=== PATIENT | male | born 1980 | race Hispanic/Latino ===

== ENCOUNTER 2021-10-06 17:31 | Inpatient (IN) | payer OTHER ==
[2021-10-06] MEDS ORDERED: ONDANSETRON 4 MG/2 ML INJ IV ONE (17:56)
--- NOTE | 2021-10-06 18:30 | XRay Report ---
. XR chest 1V ap INDICATION / CLINICAL INFORMATION: Productive cough generalized malaise. COMPARISON: None available. FINDINGS: SUPPORT DEVICES: None. HEART /PULMONARY VASCULATURE: No significant abnormality. LUNGS / PLEURA: No significant pulmonary or pleural abnormality. No pneumothorax. IMPRESSION: 1. No acute findings. Signer Name: Jamie Cox MD Signed: 10/06/2021 6:26 PM Workstation Name: [id number]
[2021-10-06 18:45] LABS: Mean Corpuscular HGB Conc 29 % (32-34); Mean Corpuscular Volume 102 fl (84-94); Platelet Count 429 K/mm3 (140-440); Red Blood Count 6.57 M/mm3 (3.65-5.03); Red Cell Distribution Width 15.6 % (13.2-15.2)
[2021-10-06] MEDS ORDERED: SODIUM CHLORIDE 0.9% 1000 ML 1,000 ML IV ONE (18:45)
[2021-10-06 18:47] LABS: Hemoglobin 19.3 gm/dl (11.8-15.2)
[2021-10-06 18:50] LABS: Hematocrit 67.1 % (35.5-45.6)
[2021-10-06 19:09] LABS: Albumin 4.7 g/dL (3.9-5); Calcium 11.2 mg/dL (8.4-10.2)
[2021-10-06] MEDS ORDERED: CEFEPIME/NS 2 GM/100 ML 2 GM/100 ML BAG IV ONE (19:12)
[2021-10-06] MEDS ORDERED: SODIUM CHLORIDE 0.9% 1000 ML IV SOLN IV ONE (19:12)
[2021-10-06 19:33] LABS: Bilirubin,Urine NEG (Negative); Blood,Urine NEG (Negative); Color,Urine Straw (Yellow); Hyaline Casts,Urine 1 /LPF; Mucus,Urine FEW /HPF; Protein,Urine <15 mg/dL mg/dL (Negative); RBC,Urine < 1.0 /HPF (0.0-6.0); Urobilinogen,Urine < 2.0 mg/dL (<2.0)
[2021-10-06 19:41] LABS: Amphetamine Screen,Urine Negative; Benzodiazepines Screen,Urine Negative; Cannabinoid Screen,Urine Negative; Cocaine Screen,Urine Negative; Methadone Screen,Urine Negative; Opiate Screen,Urine Negative
[2021-10-06] MEDS ORDERED: INSULIN REGULAR, HUMAN 100 UNITS/1 ML IV ONE (20:10)
--- NOTE | 2021-10-06 21:40 | Cat Scan Report ---
CT CHEST, ABDOMEN, AND PELVIS WITHOUT CONTRAST INDICATION / CLINICAL INFORMATION: sepsis vomiting. TECHNIQUE: Axial CT images were obtained through the chest, abdomen, and pelvis without contrast. All CT scans at this location are performed using CT dose reduction for ALARA by means of automated expo sure control. COMPARISON: None available. FINDINGS: HEART: No significant abnormality. CORONARY ARTERY CALCIFICATION: None. THORACIC AORTA: No significant abnormality. MEDIASTINUM / MORRIS: No significant abnormality. PLEURA: No pleural effusion. No pneumothorax. LUNGS: Patchy lower lobe and peripheral predominant groundglass opacities. ADDITIONAL CHEST FINDINGS: Esophagus is mildly patulous and contains ingested material.. LIVER: No significant abnormality. GALLBLADDER: Not seen, likely surgically absent. BILE DUCTS: No significant abnormality. PANCREAS: Postsurgical changes from partial resection of the pancreas SPLEEN: Surgically absent. ADRENALS: No significant abnormality. RIGHT KIDNEY / URETER: Hypodensity at lower pole right kidney likely represents a cyst. LEFT KIDNEY / URETER: No significant abnormality. STOMACH and SMALL BOWEL: No significant abnormality. COLON: Moderate colonic stool burden. No acute inflammation. APPENDIX: No significant abnormality. PERITONEUM: No free fluid. No free air. No fluid collection. LYMPH NODES: No significant adenopathy. AORTA / ARTERIES: No significant abnormality. IVC / VEINS: No significant abnormality. URINARY BLADDER: No significant abnormality. REPRODUCTIVE ORGANS: No significant abnormality. ADDITIONAL FINDINGS: None. SKELETAL SYSTEM: No aggressive osseous lesion. Scoliosis of the thoracic and lumbar spine. Small alysa gn-appearing sclerotic lesion in the left femoral head. IMPRESSION: 1. Patchy groundglass opacities in the lung bases likely represent infectious/inflammatory etiology. 2. Postsurgical changes in the abdomen without acute abnormality identified. 3. Moderate colonic stool burden which can be seen with constipation in the proper clinical setting. Signer Name: Josh Servin MD Signed: 10/06/2021 9:35 PM Workstation Name: [id number]
[2021-10-06] MEDS ORDERED: VANCOMYCIN/NS 1 GM/250 ML 1 GM/250 ML BAG IV ONE (22:40)
[2021-10-06 22:44] LABS: Basophils % (Manual) 0 % (0.0-1.8); Eosinophils % (Manual) 0 % (0.0-4.3); Macrocytosis 2+; Myelocytes # (Manual) 0.9 K/mm3; Total Cells Counted 100
[2021-10-06 22:46] LABS: Platelet Estimate Consistent w Auto
[2021-10-06] MEDS ORDERED: MORPHINE 2 MG/1 ML INJ IV PRN (22:56)
[2021-10-06] MEDS ORDERED: DEXTROSE 50% IN WATER (25GM) 50 ML SYRINGE IV PRN (22:56)
[2021-10-06] MEDS ORDERED: ACETAMINOPHEN 325 MG TAB PO PRN (22:56)
[2021-10-06] MEDS ORDERED: MORPHINE 4 MG/1 ML INJ IV PRN (22:56)
[2021-10-06] MEDS ORDERED: ONDANSETRON 4 MG/2 ML INJ IV PRN (22:56)
[2021-10-06] MEDS ORDERED: D5W/0.45% NACL/KCL 20 MEQ 20 MEQ/1,000 ML BAG IV SCH (23:00)
[2021-10-06] MEDS ORDERED: SODIUM CHLORIDE 0.9% 1000 ML 1,000 ML IV SCH (23:00)
--- NOTE | 2021-10-06 23:10 | History and Physical Report ---
History of Present Illness Date of examination: 10/06/21 Date of admission: 10/06/2021 Chief complaint: Nausea and Vomiting Generalized weakness History of present illness: 41-year-old male with known history of necrotizing pancreatitis, splenectomy, pancreatectomy presenting to the emergency room today with nausea and vomiting, cough and changes in mental status with generalized weakness. Most of the history was gotten from the ER staff as patient is altered. Family members also not available. Blood glucose was 1094. Work-up in the emergency room today, lab reveals leukocytosis of 22.6, hemoglobin of 19.3 and hematocrit of 67.1. Blood glucose was 1094, potassium of 5.6 CT of the chest reveals patchy groundglass opacities in lung bases likely representing infectious/inflammatory etiology. Patient has been started on empiric IV antibiotics. He is also placed on insulin drip and IV fluid for DKA. Past History Past Medical History: diabetes, other (Unknown) Past Surgical History: Other (Unknown) Social history: other (Unknown) Family history: other (Unknown) Medications and Allergies Allergies Allergy/AdvReac Type Severity Reaction Status Date / Time Sulfa (Sulfonamide AdvReac Unknown Verified 10/06/21 17:45 Antibiotics) Home Medications Medication Instructions Recorded Confirmed Last Taken Type No Known Home Medications [No 10/06/21 10/06/21 Unknown History Reported Home Medications] Active Meds: Active Medications Acetaminophen (Acetaminophen 325 Mg Tab) 650 mg PO Q6H PRN PRN Reason: Pain MILD(1-3)/Fever >100.5/STEINER Dextrose (Dextrose 50% In Water (25gm) 50 Ml Syringe) 0 ml IV Q30MIN PRN; Prot ocol PRN Reason: Hypoglycemia Insulin Human Regular 100 (units/ Sodium Chloride) 100 mls @ 6 mls/hr IV TITR CARMEN; Protocol Vancomycin HCl (Vancomycin/Ns 1 Gm/250 Ml) 1 gm in 250 mls @ 167.007 mls/hr IV ONCE ONE; Protocol Stop: 10/07/21 00:09 Sodium Chloride (Nacl 0.9% 1000 Ml) 1,000 mls @ 150 mls/hr IV DIRECT CARMEN Potassium Chloride/Dextrose/Sod Cl (D5w/0.45% Nacl/Kcl 20 Meq) 20 meq in 1,000 mls @ 125 mls/hr IV DIRECT CARMEN Potassium Chloride/Dextrose/Sod Cl (D5w/0.45% Nacl/Kcl 20 Meq) 20 meq in 1,000 mls @ 125 mls/hr IV DIRECT CARMEN Morphine Sulfate (Morphine 2 Mg/1 Ml Inj) 2 mg IV Q4H PRN PRN Reason: Pain, Moderate (4-6) Morphine Sulfate (Morphine 4 Mg/1 Ml Inj) 4 mg IV Q4H PRN PRN Reason: Pain , Severe (7-10) Ondansetron HCl (Ondansetron 4 Mg/2 Ml Inj) 4 mg IV Q8H PRN PRN Reason: Nausea And Vomiting Sodium Chloride (Sodium Chloride 0.9% 10 Ml Flush Syringe) 10 ml IV BID CARMEN Sodium Chloride (Sodium Chloride 0.9% 10 Ml Flush Syringe) 10 ml IV PRN PRN PRN Reason: LINE FLUSH Review of Systems ROS unobtainable: due to mental status Exam - Constitutional Vitals: Temp Pulse Resp BP Pulse Ox 97.4 F L 117 H 17 122/85 95 10/06/21 18:48 10/06/21 18:48 10/06/21 18:48 10/06/21 18:48 10/06/21 18:50 General appearance: Present: cachectic - EENT Eyes: Present: PERRL, EOM intact. Absent: scleral icterus ENT: hearing intact, clear oral mucosa, dentition normal, other (Dried blood stains in oral orifice) - Neck Neck: Present: supple, normal ROM - Respiratory Respiratory effort: normal Respiratory: bilateral: CTA - Cardiovascular Rhythm: regular Heart Sounds: Present: S1 & S2. Absent: gallop, systolic murmur, diastolic murmur, rub, click - Extremities Extremities: no ischemia, pulses intact, pulses symmetrical, No edema, normal temperature, normal color, Full ROM Peripheral Pulses: within normal limits - Abdominal General gastrointestinal: Present: soft, non-tender, non-distended, normal bowel sounds. Absent: mass - Integumentary Integumentary: Present: clear, warm, dry. Absent: rash - Musculoskeletal Musculoskeletal: strength equal bilaterally - Psychiatric Psychiatric: cooperative - Neurologic Neurologic: CNII-XII intact, moves all extremities, other (Obtunded) Results - Labs CBC & Chem 7: 10/07/21 05:05 10/07/21 05:05 Labs: Abnormal lab results 10/06/21 10/06/21 10/06/21 Range/Units 18:17 18:17 18:17 WBC 22.6 H (4.5-11.0) K/mm3 RBC 6.57 H (3.65-5.03) M/mm3 Hgb 19.3 H (11.8-15.2) gm/dl Hct 67.1 H* (35.5-45.6) % MCV 102 H (84-94) fl MCHC 29 L (32-34) % RDW 15.6 H (13.2-15.2) % Seg Neuts % (Manual) 78.0 H (40.0-70.0) % Lymphocytes % (Manual) 1.0 L (13.4-35.0) % Seg Neutrophils # Man 17.6 H (1.8-7.7) K/mm3 Lymphocytes # (Manual) 0.2 L (1.2-5.4) K/mm3 Monocytes # (Manual) 1.4 H (0.0-0.8) K/mm3 VBG pH (7.320-7.420) Sodium 136 L (137-145) mmol/L Potassium 5.6 H (3.6-5.0) mmol/L Chloride 78.5 L (98-107) mmol/L Carbon Dioxide 11 L (22-30) mmol/L BUN 76 H (9-20) mg/dL Creatinine 2.3 H (0.8-1.3) mg/dL Glucose 1094 H* (75-100) mg/dL Lactic Acid 5.10 H* (0.7-2.0) mmol/L Calcium 11.2 H (8.4-10.2) mg/dL Phosphorus (2.5-4.5) mg/dL Magnesium (1.7-2.3) mg/dL Alkaline Phosphatase 132 H (35-129) units/L Total Protein 8.9 H (6.3-8.2) g/dL Lipase 76 H (13-60) units/L 10/06/21 10/06/21 10/06/21 Range/Units 20:40 20:40 21:51 WBC (4.5-11.0) K/mm3 RBC (3.65-5.03) M/mm3 Hgb (11.8-15.2) gm/dl Hct (35.5-45.6) % MCV (84-94) fl MCHC (32-34) % RDW (13.2-15.2) % Seg Neuts % (Manual) (40.0-70.0) % Lymphocytes % (Manual) (13.4-35.0) % Seg Neutrophils # Man (1.8-7.7) K/mm3 Lymphocytes # (Manual) (1.2-5.4) K/mm3 Monocytes # (Manual) (0.0-0.8) K/mm3 VBG pH 7.241 L (7.320-7.420) Sodium (137-145) mmol/L Potassium (3.6-5.0) mmol/L Chloride (98-107) mmol/L Carbon Dioxide (22-30) mmol/L BUN (9-20) mg/dL Creatinine (0.8-1.3) mg/dL Glucose (75-100) mg/dL Lactic Acid 4.50 H* (0.7-2.0) mmol/L Calcium (8.4-10.2) mg/dL Phosphorus 7.70 H (2.5-4.5) mg/dL Magnesium 4.00 H (1.7-2.3) mg/dL Alkaline Phosphatase (35-129) units/L Total Protein (6.3-8.2) g/dL Lipase (13-60) units/L Assessment and Plan - Patient Problems (1) Diabetic ketoacidosis Current Visit: Yes Status: Acute Plan to address problem: Patient started on IV fluid and insulin drip. We will monitor Accu-Cheks accordingly. (2) Acute metabolic encephalopathy Current Visit: Yes Status: Acute Plan to address problem: Possibly secondary to underlying DKA and pneumonia. We will monitor mental status. (3) Community acquired pneumonia Current Visit: Yes Status: Acute Plan to address problem: Patient placed on empiric IV antibiotics. Will await culture results. (4) Sepsis Current Visit: Yes Status: Acute Plan to address problem: Present on admission. Secondary to the underlying infection and DKA. (5) Suspected COVID-19 virus infection Current Visit: Yes Status: Acute Plan to address problem: We await COVID-19 testing. (6) DVT prophylaxis Current Visit: Yes Status: Acute Plan to address problem: Patient placed on subcutaneous heparin. (7) Full code status Current Visit: Yes Status: Acute Plan to address problem: Patient is full code.
--- NOTE | 2021-10-06 23:18 | Emergency Department Report ---
ED General Adult HPI - General Chief complaint: Weakness Stated complaint: WEAKNESS,DEHYDRATION,DIZZY Time Seen by Provider: 10/06/21 17:57 Source: patient Mode of arrival: Wheelchair Limitations: No Limitations - History of Present Illness Initial comments: Chief complaint: Cough, weakness, confusion HPI: This is a 41-year-old male with history of necrotizing pancreatitis, splenectomy, pancreatectomy who presents with confusion, vomiting, weight loss, productive cough. History obtained from who is registered nurse phone #[phone] 1 week ago patient felt as if he had a sinus infection or pneumonia. His physician prescribed Z-Ashu and prednisone. He then developed nausea vomiting with poor appetite. realized that he was confused and incoherent for the past 2 to 3 days. No history of diabetes mellitus. Patient required pancreatectomy and splenectomy cholecystectomy after being diagnosed with a severe infection. Patient required several hospitalizations over 2-year period. -: Gradual, week(s) (1 week) Severity scale (0 -10): 0 Consistency: constant Improves with: none Worsens with: none Associated Symptoms: confusion, cough, loss of appetite, nausea/vomiting, other (8 pound weight loss) - Related Data Home Medications Medication Instructions Recorded Confirmed Last Taken No Known Home Medications [No 10/06/21 10/06/21 Unknown Reported Home Medications] Allergies Allergy/AdvReac Type Severity Reaction Status Date / Time Sulfa (Sulfonamide AdvReac Unknown Verified 10/06/21 17:45 Antibiotics) ED Review of Systems ROS: Stated complaint: WEAKNESS,DEHYDRATION,DIZZY Other details as noted in HPI Comment: Unobtainable due to pts medical conditions (Altered mental status, history obtained from ) ED Past Medical Hx - Past Medical History Previous Medical History?: Yes Additional medical history: Necrotizing pancreatitis - Surgical History Past Surgical History?: Yes Additional Surgical History: Pancreatectomy, splenectomy, cholecystectomy - Social History Smoking Status: Never Smoker Substance Use Type: None - Medications Home Medications: Home Medications Medication Instructions Recorded Confirmed Last Taken Type No Known Home Medications [No 10/06/21 10/06/21 Unknown History Reported Home Medications] ED Physical Exam - General Limitations: No Limitations General appearance: lethargic, postictal, other (Protecting airway, appears ill,) - Head Head exam: Present: atraumatic, normocephalic - Eye Eye exam: Present: normal appearance - ENT ENT exam: Present: mucous membranes dry, other (Dry mucous membranes no oropharyngeal lesions) - Neck Neck exam: Present: normal inspection, full ROM - Respiratory Respiratory exam: Present: rales, decreased breath sounds. Absent: respiratory distress - Cardiovascular Cardiovascular Exam: Present: normal rhythm, tachycardia, normal heart sounds. Absent: systolic murmur, diastolic murmur, rubs, gallop - GI/Abdominal GI/Abdominal exam: Present: soft, normal bowel sounds. Absent: distended, tenderness, guarding, rebound - Rectal Rectal exam: Present: deferred - Extremities Exam Extremities exam: Present: normal inspection - Neurological Exam Neurological exam: Present: alert, other (Oriented to name) - Psychiatric Psychiatric exam: Present: flat affect - Skin Skin exam: Present: warm, dry, intact, pallor. Absent: rash ED Course Vital Signs 10/06/21 10/06/21 10/06/21 17:43 18:41 18:48 Temperature 97.4 F L 97.4 F L 97.4 F L Pulse Rate 121 H 60 117 H Respiratory 18 16 17 Rate Blood Pressure 118/84 Blood Pressure 122/85 122/85 [Right] O2 Sat by Pulse 97 100 98 Oximetry 10/06/21 18:50 Temperature Pulse Rate Respiratory Rate Blood Pressure Blood Pressure [Right] O2 Sat by Pulse 95 Oximetry ED Medical Decision Making - Lab Data Result diagrams: 10/06/21 18:17 10/06/21 18:17 - EKG Data -: EKG Interpreted by Ri EKG shows normal: sinus rhythm Rate: tachycardia - EKG Data 10/06/21 23:19 EKG obtained 1954 EKG interpreted by nj Sinus tachycardia rate 105 bpm normal axis peak T waves prolonged QT interval no ST elevation - Radiology Data Radiology results: report reviewed Patient Name: TAMARA BETHEA Gender: Male Date of : 1980 Home Phone: Referring Provider: PAPI HARTMAN Organization: [facility] Accession Number: [id number] Requested Date: October 06, 2021 19:11 Report Status: Final Requested Procedure: 1 Procedure Description: CT chest wo con Modality: CT Findings Reporting MD: Josh Servin Dictation Time: October 06, 2021 20:35 Break Out Worker: Not available Curriculum Advisory Teacher Date: CT CHEST, ABDOMEN, AND PELVIS WITHOUT CONTRAST INDICATION / CLINICAL INFORMATION: sepsis vomiting. TECHNIQUE: Axial CT images were obtained through the chest, abdomen, and pelvis without contrast. All CT scans at this location are performed using CT dose reduction for ALARA by means of automated exposure control. COMPARISON: None available. FINDINGS: HEART: No significant abnormality. CORONARY ARTERY CALCIFICATION: None. THORACIC AORTA: No significant abnormality. MEDIASTINUM / MORRIS: No significant abnormality. PLEURA: No pleural effusion. No pneumothorax. LUNGS: Patchy lower lobe and peripheral predominant groundglass opacities. ADDITIONAL CHEST FINDINGS: Esophagus is mildly patulous and contains ingested material.. LIVER: No significant abnormality. GALLBLADDER: Not seen, likely surgically absent. BILE DUCTS: No significant abnormality. PANCREAS: Postsurgical changes from partial resection of the pancreas SPLEEN: Surgically absent. ADRENALS: No significant abnormality. RIGHT KIDNEY / URETER: Hypodensity at lower pole right kidney likely represents a cyst. LEFT KIDNEY / URETER: No significant abnormality. STOMACH and SMALL BOWEL: No significant abnormality. COLON: Moderate colonic stool burden. No acute inflammation. APPENDIX: No significant abnormality. PERITONEUM: No free fluid. No free air. No fluid collection. LYMPH NODES: No significant adenopathy. AORTA / ARTERIES: No significant abnormality. IVC / VEINS: No significant abnormality. URINARY BLADDER: No significant abnormality. REPRODUCTIVE ORGANS: No significant abnormality. ADDITIONAL FINDINGS: None. SKELETAL SYSTEM: No aggressive osseous lesion. Scoliosis of the thoracic and lumbar spine. Small benign-appearing sclerotic lesion in the left femoral head. [facility] [address], [address] [place] [address] P [phone] F [phone] [facility] - Report exported on Oct 06, 2021 22:18:54 -0600 - Page 2 of 2 IMPRESSION: 1. Patchy groundglass opacities in the lung bases likely represent infectious/inflammatory etiology. 2. Postsurgical changes in the abdomen without acute abnormality identified. 3. Moderate colonic stool burden which can be seen with constipation in the proper clinical setting. Signer Name: Josh Servin MD Signed: 10/06/2021 8:35 PM Workstation Name: [id number] - Medical Decision Making 1. Diabetic ketoacidosis: New diagnosis of diabetes mellitus. Treated with IV fluid therapy, IV insulin infusion, insulin bolus. 2. Community-acquired pneumonia/sepsis: Broad-spectrum antibiotics cefepime vancomycin initial emergency department as well as 30 mL/kg normal saline bolus 3. TICO: Vasomotor nephropathy due to sepsis poor perfusion hypovolemia, EKG with peaked T waves signs of hyperkalemia. Hyperkalemia will be addressed with insulin therapy. 4. Acute metabolic encephalopathy due to the above diagnoses including uremia, sepsis, metabolic acidosis Admitted to CCU I consulted trailer steerer and admitting hospitalist physician Critical Care Time: Yes Critical care time in (mins) excluding proc time.: 40 Critical care attestation.: If time is entered above; I have spent that time in minutes in the direct care of this critically ill patient, excluding procedure time. 40 minutes of critical care time excluding procedures were used in the care of the patient. I came immediately to the bedside upon patient's arrival to treatment room. I discussed treatment plan with the nursing team members. I rev iewed electronic record. I had extensive discussion with regarding plan of care. Patient required multiple interventions and reassessments. ED Disposition Clinical Impression: Diabetic ketoacidosis, Sepsis, Community acquired pneumonia, Suspected COVID-19 virus infection, Acute kidney injury, Acute metabolic encephalopathy Disposition: 09 ADMITTED INPATIENT Is pt being admited?: Yes Does the pt Need Aspirin: No Condition: Critical Instructions: Diabetic Ketoacidosis (ED), Bacterial Pneumonia (ED)
[2021-10-06] MEDS ORDERED: AZITHROMYCIN/NS 500 MG/250 ML 500 MG/250 ML BAG IV SCH (23:45)
[2021-10-06] MEDS ORDERED: cefTRIAXone/NS 2 GM/100 ML 2 GM/100 ML BAG IV SCH (23:45)
[2021-10-06] MEDS ORDERED: DEXTROSE 10% *Hypoglycemia IV PRN (23:47)
[2021-10-07] MEDS: INSULIN REGULAR, HUMAN 100 UNITS in SODIUM CHLORIDE 0.9% 99 ML IV SCH ×2 (00:08→23:26)
[2021-10-07 00:14] LABS: Calcium 9.5 mg/dL (8.4-10.2)
[2021-10-07 05:52] LABS: Hematocrit 55.7 % (35.5-45.6); Hemoglobin 17.7 gm/dl (11.8-15.2); Mean Corpuscular HGB Conc 32 % (32-34); Mean Corpuscular Volume 93 fl (84-94); Platelet Count 404 K/mm3 (140-440); Red Blood Count 6.02 M/mm3 (3.65-5.03); Red Cell Distribution Width 13.6 % (13.2-15.2)
[2021-10-07 06:04] LABS: Calcium 8.7 mg/dL (8.4-10.2)
[2021-10-07] MEDS: D5W/0.45% NACL/KCL 20 MEQ 20 MEQ/1,000 ML BAG IV SCH ×2 (06:36→14:16)
[2021-10-07] MEDS ORDERED: SODIUM CHLORIDE 0.45% 1000 ML 1,000 ML IV SCH (07:00)
[2021-10-07 07:29] LABS: Band Neutrophils # (Manual) 2.1 K/mm3; Eosinophils % (Manual) 0 % (0.0-4.3); Total Cells Counted 100
[2021-10-07 07:30] LABS: Macrocytosis 1+; Platelet Estimate Consistent w Auto
--- NOTE | 2021-10-07 10:23 | Electrocardiograph Report ---
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
--- NOTE | 2021-10-07 10:51 | Progress Note ---
<GEN ODONNELL - Last Filed: 10/07/21 15:54> Assessment and Plan Assessment and plan: This is a 41-year-old male with past medical history of necrotizing pancreatitis s/p pancreatectomy, splenectomy and borderline DM admitted for sepsis and DKA Hospital Course to Date: 10/07: Patient remains encephalopathic, still on the DKA protocol. Anion gap still open this am, additional IVF bolus administered. Renal function is improving, however worsening hypernatremia also noted, IVF switched to D5W. Plan to transition to SubQ insulin once gap is closed X2. Continue IV Abx for now for CAP, COVID PCR pending. Assessment and Plan #Diabetic Ketoacidosis (DKA) - Presented with high BG and +ketones in UA - Continue DKA protocol - IV fluid resuscitation therapy, additional bolus given - Monitor and replace electrolytes as needed - Monitor anion gap - Serial BMP, mag, & phosp #Sepsis POA #Community Acquired Pneumonia (CAP) #COVID PUI - Presented with leukocytosis, tachycardia, elevated lactic - CT of the chest reveals patchy groundglass opacities in lung bases likely representing infectious/inflammatory etiology - COVID PCR pending - UA unremarkable, +ketones - Blood culture pending - Continue empiric IV Abx for now - Continue to F/U on B.cult - Daily CBC monitor - Consider ID consult if febrile or/and if leukocytosis persist #Acute Kidney Injury (TICO) most likely ATN #Hypernatremia - Most likely related to dehydration/ DKA - Baseline is unknown, Scr. downtrending post IV hydration - IVF switched to D5W - Continue IV fluid resuscitation therapy - Strict intake and output - Monitor and replace electrolytes as needed - Serial BMP, mag, & phosp #Acute Metabolic Encephalopathy - Possibly secondary to underlying DKA vs infectious process - Continue DKA protocol - Continue IV fluid resuscitation therapy and IV Abx - Maintenance of sleep-wake cycle, avoid delirium #GI/DVT prophylaxis - PPI: Pepcid - Continue AC- heparin SubQ - SCDs to bilateral lower extremities while in bed The high probability of a clinically significant, sudden or life threatening deterioration of the [multiple] system(s) required my full and direct attention, intervention and personal management. The aggregate critical care time was [60] minutes. This time is in addition to time spent performing reported procedures but includes the following: [x] Data Review and interpretation [x] Patient assessment and monitoring of vital signs [x] Documentation [x] Medication orders and management Disposition Plan: ICU Total Time Spent with Patient (Minutes): 60 History Interval history: Patient seen and examined at the bedside. Patient is on RA, awake but confused, able to follow simple commands. On insulin gtt and IVF per DKA protocol. RICARDO overnight Hospitalist Physical - Constitutional Vitals: Temp Pulse Resp BP Pulse Ox 97.6 F 112 H 12 135/90 98 10/07/21 07:18 10/07/21 08:45 10/07/21 08:45 10/07/21 08:30 10/07/21 08:45 General appearance: Present: no acute distress, cachectic - EENT Eyes: Present: PERRL ENT: hearing intact - Neck Neck: Present: normal ROM - Respiratory Respiratory effort: normal Respiratory: bilateral: diminished - Cardiovascular Rhythm: regular Heart Sounds: Present: S1 & S2 - Extremities Extremities: no ischemia, pulses intact, pulses symmetrical - Abdominal General gastrointestinal: soft, non-distended, normal bowel sounds - Integumentary Integumentary: Present: warm, dry - Psychiatric Psychiatric: other (Confused) - Neurologic Neurologic: moves all extremities, other (Confused, follow simple commands) - Allied Health Allied health notes reviewed: nursing Results - Labs CBC & Chem 7: 10/07/21 05:05 10/07/21 13:52 Labs: Laboratory Last Values WBC 23.2 K/mm3 (4.5-11.0) H 10/07/21 05:05 RBC 6.02 M/mm3 (3.65-5.03) H 10/07/21 05:05 Hgb 17.7 gm/dl (11.8-15.2) H 10/07/21 05:05 Hct 55.7 % (35.5-45.6) H D 10/07/21 05:05 MCV 93 fl (84-94) 10/07/21 05:05 MCH 29 pg (28-32) 10/07/21 05:05 MCHC 32 % (32-34) 10/07/21 05:05 RDW 13.6 % (13.2-15.2) 10/07/21 05:05 Plt Count 404 K/mm3 (140-440) 10/07/21 05:05 Add Manual Diff Complete 10/07/21 05:05 Total Counted 100 10/07/21 05:05 Seg Neuts % (Manual) 80.0 % (40.0-70.0) H 10/07/21 05:05 Band Neutrophils % 9.0 % 10/07/21 05:05 Lymphocytes % (Manual) 3.0 % (13.4-35.0) L 10/07/21 05:05 Reactive Lymphs % (Man) 0 % 10/07/21 05:05 Monocytes % (Manual) 8.0 % (0.0-7.3) H 10/07/21 05:05 Eosinophils % (Manual) 0 % (0.0-4.3) 10/07/21 05:05 Basophils % (Manual) 0 % (0.0-1.8) 10/06/21 18:17 Metamyelocytes % 0 % 10/07/21 05:05 Myelocytes % 0 % 10/07/21 05:05 Promyelocytes % 0 % 10/07/21 05:05 Blast Cells % 0 % 10/07/21 05:05 Nucleated RBC % Not Reportable 10/07/21 05:05 Seg Neutrophils # Man 18.6 K/mm3 (1.8-7.7) H 10/07/21 05:05 Band Neutrophils # 2.1 K/mm3 10/07/21 05:05 Lymphocytes # (Manual) 0.7 K/mm3 (1.2-5.4) L 10/07/21 05:05 Abs React Lymphs (Man) 0.0 K/mm3 10/07/21 05:05 Monocytes # (Manual) 1.9 K/mm3 (0.0-0.8) H 10/07/21 05:05 Eosinophils # (Manual) 0.0 K/mm3 (0.0-0.4) 10/07/21 05:05 Basophils # (Manual) 0.0 K/mm3 (0.0-0.1) 10/07/21 05:05 Metamyelocytes # 0.0 K/mm3 10/07/21 05:05 Myelocytes # 0.0 K/mm3 10/07/21 05:05 Promyelocytes # 0.0 K/mm3 10/07/21 05:05 Blast Cells # 0.0 K/mm3 10/07/21 05:05 WBC Morphology Not Reportable 10/07/21 05:05 Hypersegmented Neuts Not Reportable 10/07/21 05:05 Hyposegmented Neuts Not Reportable 10/07/21 05:05 Hypogranular Neuts Not Reportable 10/07/21 05:05 Smudge Cells Not Reportable 10/07/21 05:05 Toxic Granulation Not Reportable 10/07/21 05:05 Toxic Vacuolation Not Reportable 10/07/21 05:05 Dohle Bodies Not Reportable 10/07/21 05:05 Pelger-Huet Anomaly Not Reportable 10/07/21 05:05 Bib Rods Not Reportable 10/07/21 05:05 Platelet Estimate Consistent w auto 10/07/21 05:05 Clumped Platelets Not Reportable 10/07/21 05:05 Plt Clumps, EDTA Not Reportable 10/07/21 05:05 Large Platelets Not Reportable 10/07/21 05:05 Giant Platelets Not Reportable 10/07/21 05:05 Platelet Satelliting Not Reportable 10/07/21 05:05 Plt Morphology Comment Not Reportable 10/07/21 05:05 RBC Morphology Not Reportable 10/07/21 05:05 Dimorphic RBCs Not Reportable 10/07/21 05:05 Polychromasia Not Reportable 10/07/21 05:05 Hypochromasia Not Reportable 10/07/21 05:05 Poikilocytosis Not Reportable 10/07/21 05:05 Anisocytosis Not Reportable 10/07/21 05:05 Microcytosis Not Reportable 10/07/21 05:05 Macrocytosis 1+ 10/07/21 05:05 Spherocytes Not Reportable 10/07/21 05:05 Pappenheimer Bodies Not Reportable 10/07/21 05:05 Sickle Cells Not Reportable 10/07/21 05:05 Target Cells Not Reportable 10/07/21 05:05 Tear Drop Cells Not Reportable 10/07/21 05:05 Ovalocytes Not Reportable 10/07/21 05:05 Helmet Cells Not Reportable 10/07/21 05:05 [place] Bodies Not Reportable 10/07/21 05:05 [place] Rings Not Reportable 10/07/21 05:05 [place] Cells Not Reportable 10/07/21 05:05 Bite Cells Not Reportable 10/07/21 05:05 Crenated Cell Not Reportable 10/07/21 05:05 Elliptocytes Not Reportable 10/07/21 05:05 Acanthocytes (Spur) Not Reportable 10/07/21 05:05 Rouleaux Not Reportable 10/07/21 05:05 Hemoglobin C Crystals Not Reportable 10/07/21 05:05 Schistocytes Not Reportable 10/07/21 05:05 Malaria parasites Not Reportable 10/07/21 05:05 [place] Bodies Not Reportable 10/07/21 05:05 Hem Pathologist Commnt No 10/07/21 05:05 VBG pH 7.241 (7.320-7.420) L 10/06/21 21:51 Sodium 159 mmol/L (137-145) H D 10/07/21 05:05 Potassium 4.1 mmol/L (3.6-5.0) D 10/07/21 05:05 Chloride 117.4 mmol/L (98-107) H 10/07/21 05:05 Carbon Dioxide 17 mmol/L (22-30) L D 10/07/21 05:05 Anion Gap 29 mmol/L 10/07/21 05:05 BUN 62 mg/dL (9-20) H 10/07/21 05:05 Creatinine 1.5 mg/dL (0.8-1.3) H 10/07/21 05:05 Estimated GFR 51 ml/min 10/07/21 05:05 BUN/Creatinine Ratio 41 % 10/07/21 05:05 Glucose 374 mg/dL (75-100) H 10/07/21 05:05 POC Glucose 229 mg/dL (70-105) H 10/07/21 10:04 Lactic Acid 1.60 mmol/L (0.7-2.0) 10/06/21 23:23 Calcium 8.7 mg/dL (8.4-10.2) 10/07/21 05:05 Phosphorus 4.80 mg/dL (2.5-4.5) H D 10/06/21 23:23 Magnesium 3.20 mg/dL (1.7-2.3) H 10/06/21 23:23 Total Bilirubin 0.40 mg/dL (0.1-1.2) 10/06/21 18:17 AST 10 units/L (5-40) 10/06/21 18:17 ALT 15 units/L (7-56) 10/06/21 18:17 Alkaline Phosphatase 132 units/L (35-129) H 10/06/21 18:17 Total Protein 8.9 g/dL (6.3-8.2) H 10/06/21 18:17 Albumin 4.7 g/dL (3.9-5) 10/06/21 18:17 Albumin/Globulin Ratio 1.1 % 10/06/21 18:17 Lipase 76 units/L (13-60) H 10/06/21 18:17 Urine Color Straw (Yellow) 10/06/21 19:19 Urine Turbidity Clear (Clear) 10/06/21 19:19 Urine pH 5.0 (5.0-7.0) 10/06/21 19:19 Ur Specific [place] 1.025 (1.003-1.030) 10/06/21 19:19 Urine Protein <15 mg/dl mg/dL (Negative) 10/06/21 19:19 Urine Glucose (UA) >=500 mg/dL (Negative) 10/06/21 19:19 Urine Ketones 80 mg/dL (Negative) 10/06/21 19:19 Urine Blood Neg (Negative) 10/06/21 19:19 Urine Nitrite Neg (Negative) 10/06/21 19:19 Urine Bilirubin Neg (Negative) 10/06/21 19:19 Urine Urobilinogen < 2.0 mg/dL (<2.0) 10/06/21 19:19 Ur Leukocyte Esterase Neg (Negative) 10/06/21 19:19 Urine WBC (Auto) 1.0 /HPF (0.0-6.0) 10/06/21 19:19 Urine RBC (Auto) < 1.0 /HPF (0.0-6.0) 10/06/21 19:19 Hyaline Casts 1 /LPF 10/06/21 19:19 Urine Mucus Few /HPF 10/06/21 19:19 Urine Opiates Screen Negative 10/06/21 19:19 Urine Methadone Screen Negative 10/06/21 19:19 Ur Barbiturates Screen Negative 10/06/21 19:19 Ur Phencyclidine Scrn Negative 10/06/21 19:19 Ur Amphetamines Screen Negative 10/06/21 19:19 U Benzodiazepines Scrn Negative 10/06/21 19:19 Urine Cocaine Screen Negative 10/06/21 19:19 U Marijuana (THC) Screen Negative 10/06/21 19:19 Drugs of Abuse Note Disclamer 10/06/21 19:19 Microbiology: Microbiology 10/06/21 19:44 Peripheral/Venous Blood Culture - Preliminary Culture in Progress 10/06/21 19:44 Peripheral/Venous Blood Culture - Preliminary Culture in Progress Ocampo/IV: Voiding Method Incontinent Active Medications - Current Medications Current Medications: Generic Name Dose Route Start Last Admin Trade Name Freq PRN Reason Stop Dose Admin Acetaminophen 650 mg 10/06/21 22:56 Acetaminophen 325 Mg Tab PO Q6H PRN Pain MILD(1-3)/Fever >100.5/STEINER Dextrose 0 ml 10/06/21 23:47 Dextrose 10% *Hypoglycemia IV PRN PRN Hypoglycemia Protocol Docusate Sodium 100 mg 10/07/21 10:00 Docusate Sodium 100 Mg Cap PO BID CARMEN Famotidine 20 mg 10/07/21 10:00 Famotidine 20 Mg Tab PO BID [facility] Heparin Sodium (Porcine) 5,000 unit 10/07/21 14:00 Heparin 5,000 Unit/1 Ml Vial SUB-Q Q8HR [facility] Insulin Human Regular 100 100 mls @ 6 mls/hr 10/06/21 21:00 10/07/21 09:08 units/ Sodium Chloride IV 10 units/hr TITR CARMEN 10 mls/hr Titration Protocol 6 UNITS/HR Sodium Chloride 1,000 mls @ 150 mls/hr 10/06/21 23:00 10/07/21 01:55 Nacl 0.9% 1000 Ml IV 150 mls/hr DIRECT CARMEN Administration Potassium Chloride/Dextrose/Sod Cl 20 meq in 1,000 mls @ 125 mls/hr 10/06/21 23:00 10/07/21 06:36 D5w/0.45% Nacl/Kcl 20 Meq IV 125 mls/hr DIRECT CARMEN Administration Ceftriaxone Sodium 2 gm in 100 mls @ 200 mls/hr 10/06/21 23:45 10/07/21 00:03 Rocephin/Ns 2 Gm/100 Ml IV 200 mls/hr Q24H CARMEN Administration Protocol Azithromycin 500 mg in 250 mls @ 250 mls/hr 10/06/21 23:45 10/07/21 03:33 Zithromax/Ns IV 250 mls/hr Q24H CARMEN Administration Protocol Lactated Ringer's 1,000 mls @ 999 mls/hr 10/07/21 10:48 Lactated Ringers IV 10/07/21 11:48 BOLUS ONE Morphine Sulfate 2 mg 10/06/21 22:56 Morphine 2 Mg/1 Ml Inj IV Q4H PRN Pain, Moderate (4-6) Morphine Sulfate 4 mg 10/06/21 22:56 Morphine 4 Mg/1 Ml Inj IV Q4H PRN Pain , Severe (7-10) Ondansetron HCl 4 mg 10/06/21 22:56 Ondansetron 4 Mg/2 Ml Inj IV Q8H PRN Nausea And Vomiting Senna 8.6 mg 10/07/21 10:00 Sennosides 8.6 Mg Tab PO Q12HR CARMEN Sodium Chloride 10 ml 10/07/21 10:00 Sodium Chloride 0.9% 10 Ml Flush Syringe IV BID CARMEN Sodium Chloride 10 ml 10/06/21 22:56 Sodium Chloride 0.9% 10 Ml Flush Syringe IV PRN PRN LINE FLUSH <DELANO CHEEMA - Last Filed: 10/08/21 07:28> Assessment and Plan Assessment and plan: I saw and evaluated the patient. I agree with the findings and the plan of care as documented in the Nurse Practitioner's~note, with the following corrections and additions. Hospitalist Physical - Constitutional Vitals: Temp Pulse Resp BP Pulse Ox 98.7 F 115 H 13 142/94 95 10/08/21 04:00 10/08/21 06:00 10/08/21 06:00 10/08/21 06:00 10/08/21 06:00 Results - Labs CBC & Chem 7: 10/08/21 05:42 10/08/21 05:42 Labs: Laboratory Last Values WBC 19.3 K/mm3 (4.5-11.0) H 10/08/21 05:42 RBC 5.25 M/mm3 (3.65-5.03) H 10/08/21 05:42 Hgb 15.6 gm/dl (11.8-15.2) H 10/08/21 05:42 Hct 48.5 % (35.5-45.6) H D 10/08/21 05:42 MCV 92 fl (84-94) 10/08/21 05:42 MCH 30 pg (28-32) 10/08/21 05:42 MCHC 32 % (32-34) 10/08/21 05:42 RDW 13.3 % (13.2-15.2) 10/08/21 05:42 Plt Count 348 K/mm3 (140-440) 10/08/21 05:42 Add Manual Diff Complete 10/07/21 05:05 Total Counted 100 10/07/21 05:05 Seg Neuts % (Manual) 80.0 % (40.0-70.0) H 10/07/21 05:05 Band Neutrophils % 9.0 % 10/07/21 05:05 Lymphocytes % (Manual) 3.0 % (13.4-35.0) L 10/07/21 05:05 Reactive Lymphs % (Man) 0 % 10/07/21 05:05 Monocytes % (Manual) 8.0 % (0.0-7.3) H 10/07/21 05:05 Eosinophils % (Manual) 0 % (0.0-4.3) 10/07/21 05:05 Basophils % (Manual) 0 % (0.0-1.8) 10/06/21 18:17 Metamyelocytes % 0 % 10/07/21 05:05 Myelocytes % 0 % 10/07/21 05:05 Promyelocytes % 0 % 10/07/21 05:05 Blast Cells % 0 % 10/07/21 05:05 Nucleated RBC % Not Reportable 10/07/21 05:05 Seg Neutrophils # Man 18.6 K/mm3 (1.8-7.7) H 10/07/21 05:05 Band Neutrophils # 2.1 K/mm3 10/07/21 05:05 Lymphocytes # (Manual) 0.7 K/mm3 (1.2-5.4) L 10/07/21 05:05 Abs React Lymphs (Man) 0.0 K/mm3 10/07/21 05:05 Monocytes # (Manual) 1.9 K/mm3 (0.0-0.8) H 10/07/21 05:05 Eosinophils # (Manual) 0.0 K/mm3 (0.0-0.4) 10/07/21 05:05 Basophils # (Manual) 0.0 K/mm3 (0.0-0.1) 10/07/21 05:05 Metamyelocytes # 0.0 K/mm3 10/07/21 05:05 Myelocytes # 0.0 K/mm3 10/07/21 05:05 Promyelocytes # 0.0 K/mm3 10/07/21 05:05 Blast Cells # 0.0 K/mm3 10/07/21 05:05 WBC Morphology Not Reportable 10/07/21 05:05 Hypersegmented Neuts Not Reportable 10/07/21 05:05 Hyposegmented Neuts Not Reportable 10/07/21 05:05 Hypogranular Neuts Not Reportable 10/07/21 05:05 Smudge Cells Not Reportable 10/07/21 05:05 Toxic Granulation Not Reportable 10/07/21 05:05 Toxic Vacuolation Not Reportable 10/07/21 05:05 Dohle Bodies Not Reportable 10/07/21 05:05 Pelger-Huet Anomaly Not Reportable 10/07/21 05:05 Bib Rods Not Reportable 10/07/21 05:05 Platelet Estimate Consistent w auto 10/07/21 05:05 Clumped Platelets Not Reportable 10/07/21 05:05 Plt Clumps, EDTA Not Reportable 10/07/21 05:05 Large Platelets Not Reportable 10/07/21 05:05 Giant Platelets Not Reportable 10/07/21 05:05 Platelet Satelliting Not Reportable 10/07/21 05:05 Plt Morphology Comment Not Reportable 10/07/21 05:05 RBC Morphology Not Reportable 10/07/21 05:05 Dimorphic RBCs Not Reportable 10/07/21 05:05 Polychromasia Not Reportable 10/07/21 05:05 Hypochromasia Not Reportable 10/07/21 05:05 Poikilocytosis Not Reportable 10/07/21 05:05 Anisocytosis Not Reportable 10/07/21 05:05 Microcytosis Not Reportable 10/07/21 05:05 Macrocytosis 1+ 10/07/21 05:05 Spherocytes Not Reportable 10/07/21 05:05 Pappenheimer Bodies Not Reportable 10/07/21 05:05 Sickle Cells Not Reportable 10/07/21 05:05 Target Cells Not Reportable 10/07/21 05:05 Tear Drop Cells Not Reportable 10/07/21 05:05 Ovalocytes Not Reportable 10/07/21 05:05 Helmet Cells Not Reportable 10/07/21 05:05 [place] Bodies Not Reportable 10/07/21 05:05 [place] Rings Not Reportable 10/07/21 05:05 [place] Cells Not Reportable 10/07/21 05:05 Bite Cells Not Reportable 10/07/21 05:05 Crenated Cell Not Reportable 10/07/21 05:05 Elliptocytes Not Reportable 10/07/21 05:05 Acanthocytes (Spur) Not Reportable 10/07/21 05:05 Rouleaux Not Reportable 10/07/21 05:05 Hemoglobin C Crystals Not Reportable 10/07/21 05:05 Schistocytes Not Reportable 10/07/21 05:05 Malaria parasites Not Reportable 10/07/21 05:05 [place] Bodies Not Reportable 10/07/21 05:05 Hem Pathologist Commnt No 10/07/21 05:05 D-Dimer 831.91 ng/mlDDU (0-234) H 10/07/21 13:52 VBG pH 7.241 (7.320-7.420) L 10/06/21 21:51 Sodium 158 mmol/L (137-145) H 10/08/21 05:42 Potassium 3.6 mmol/L (3.6-5.0) 10/08/21 05:42 Chloride 116.9 mmol/L (98-107) H 10/08/21 05:42 Carbon Dioxide 29 mmol/L (22-30) 10/08/21 05:42 Anion Gap 16 mmol/L 10/08/21 05:42 BUN 22 mg/dL (9-20) H 10/08/21 05:42 Creatinine 0.9 mg/dL (0.8-1.3) 10/08/21 05:42 Estimated GFR > 60 ml/min 10/08/21 05:42 BUN/Creatinine Ratio 24 % 10/08/21 05:42 Glucose 135 mg/dL (75-100) H 10/08/21 05:42 POC Glucose 133 mg/dL (70-105) H 10/08/21 06:20 Lactic Acid 1.60 mmol/L (0.7-2.0) 10/06/21 23:23 Calcium 8.4 mg/dL (8.4-10.2) 10/08/21 05:42 Phosphorus 2.10 mg/dL (2.5-4.5) L 10/08/21 05:42 Magnesium 2.10 mg/dL (1.7-2.3) 10/08/21 05:42 Ferritin 1788.0 ng/mL (30.0-300.0) H 10/07/21 13:52 Total Bilirubin 0.40 mg/dL (0.1-1.2) 10/06/21 18:17 AST 10 units/L (5-40) 10/06/21 18:17 ALT 15 units/L (7-56) 10/06/21 18:17 Alkaline Phosphatase 132 units/L (35-129) H 10/06/21 18:17 Lactate Dehydrogenase 221 units/L (91-180) H 10/07/21 13:52 C-Reactive Protein 0.90 mg/dL (0.00-1.30) 10/07/21 13:52 Total Protein 8.9 g/dL (6.3-8.2) H 10/06/21 18:17 Albumin 4.7 g/dL (3.9-5) 10/06/21 18:17 Albumin/Globulin Ratio 1.1 % 10/06/21 18:17 Lipase 76 units/L (13-60) H 10/06/21 18:17 Procalcitonin 0.16 ng/mL (<0.15) 10/07/21 13:52 Urine Color Straw (Yellow) 10/06/21 19:19 Urine Turbidity Clear (Clear) 10/06/21 19:19 Urine pH 5.0 (5.0-7.0) 10/06/21 19:19 Ur Specific [place] 1.025 (1.003-1.030) 10/06/21 19:19 Urine Protein <15 mg/dl mg/dL (Negative) 10/06/21 19:19 Urine Glucose (UA) >=500 mg/dL (Negative) 10/06/21 19:19 Urine Ketones 80 mg/dL (Negative) 10/06/21 19:19 Urine Blood Neg (Negative) 10/06/21 19:19 Urine Nitrite Neg (Negative) 10/06/21 19:19 Urine Bilirubin Neg (Negative) 10/06/21 19:19 Urine Urobilinogen < 2.0 mg/dL (<2.0) 10/06/21 19:19 Ur Leukocyte Esterase Neg (Negative) 10/06/21 19:19 Urine WBC (Auto) 1.0 /HPF (0.0-6.0) 10/06/21 19:19 Urine RBC (Auto) < 1.0 /HPF (0.0-6.0) 10/06/21 19:19 Hyaline Casts 1 /LPF 10/06/21 19:19 Urine Mucus Few /HPF 10/06/21 19:19 Urine Opiates Screen Negative 10/06/21 19:19 Urine Methadone Screen Negative 10/06/21 19:19 Ur Barbiturates Screen Negative 10/06/21 19:19 Ur Phencyclidine Scrn Negative 10/06/21 19:19 Ur Amphetamines Screen Negative 10/06/21 19:19 U Benzodiazepines Scrn Negative 10/06/21 19:19 Urine Cocaine Screen Negative 10/06/21 19:19 U Marijuana (THC) Screen Negative 10/06/21 19:19 Drugs of Abuse Note Disclamer 10/06/21 19:19 Coronavirus (PCR) Positive (Negative) A 10/07/21 09:13 Microbiology: Microbiology 10/06/21 19:44 Peripheral/Venous Blood Culture - Preliminary NO GROWTH AFTER 24 HOURS 10/06/21 19:44 Peripheral/Venous Blood Culture - Preliminary NO GROWTH AFTER 24 HOURS Ocampo/IV: Voiding Method Incontinent Active Medications - Current Medications Current Medications: Generic Name Dose Route Start Last Admin Trade Name Freq PRN Reason Stop Dose Admin Acetaminophen 650 mg 10/06/21 22:56 Acetaminophen 325 Mg Tab PO Q6H PRN Pain MILD(1-3)/Fever >100.5/STEINER Dextrose 0 ml 10/06/21 23:47 Dextrose 10% *Hypoglycemia IV PRN PRN Hypoglycemia Protocol Docusate Sodium 100 mg 10/07/21 10:00 10/07/21 22:25 Docusate Sodium 100 Mg Cap PO Not Given BID CARMEN Famotidine 20 mg 10/07/21 10:00 10/07/21 22:25 Famotidine 20 Mg Tab PO Not Given BID CARMEN Haloperidol Lactate 5 mg 10/07/21 12:20 Haloperidol Lactate 5 Mg/1 Ml Inj IV Q1H PRN Unrespon. to mult. doses BZD's Heparin Sodium (Porcine) 5,000 unit 10/07/21 14:00 10/08/21 05:59 Heparin 5,000 Unit/1 Ml Vial SUB-Q 5,000 unit Q8HR CARMEN Administration Insulin Human Regular 100 100 mls @ 6 mls/hr 10/06/21 21:00 10/08/21 06:22 units/ Sodium Chloride IV 3 units/hr TITR CARMEN 3 mls/hr Titration Protocol 6 UNITS/HR Sodium Chloride 1,000 mls @ 150 mls/hr 10/06/21 23:00 10/07/21 08:40 Nacl 0.9% 1000 Ml IV Infused DIRECT CARMEN Infusion Dextrose 1,000 mls @ 125 mls/hr 10/07/21 16:00 10/08/21 02:37 D5w IV 125 mls/hr DIRECT CARMEN Administration Lorazepam 2 mg 10/07/21 12:20 10/07/21 14:56 Lorazepam 2 Mg/Ml Vial IV 2 mg Q1H PRN Administration CIWA-Ar 8-15 Lorazepam 4 mg 10/07/21 12:20 Lorazepam 2 Mg/Ml Vial IV Q1H PRN CIWA-Ar 16-25 Lorazepam 4 mg 10/07/21 12:20 Lorazepam 2 Mg/Ml Vial IV Q15MIN PRN CIWA-Ar >25 Morphine Sulfate 2 mg 10/06/21 22:56 Morphine 2 Mg/1 Ml Inj IV Q4H PRN Pain, Moderate (4-6) Morphine Sulfate 4 mg 10/06/21 22:56 Morphine 4 Mg/1 Ml Inj IV Q4H PRN Pain , Severe (7-10) Ondansetron HCl 4 mg 10/06/21 22:56 Ondansetron 4 Mg/2 Ml Inj IV Q8H PRN Nausea And Vomiting Senna 8.6 mg 10/07/21 10:00 10/07/21 22:26 Sennosides 8.6 Mg Tab PO Not Given Q12HR CARMEN Sodium Chloride 10 ml 10/07/21 10:00 10/07/21 22:26 Sodium Chloride 0.9% 10 Ml Flush Syringe IV 10 ml BID CARMEN Administration Sodium Chloride 10 ml 10/06/21 22:56 Sodium Chloride 0.9% 10 Ml Flush Syringe IV PRN PRN LINE FLUSH Nutrition/Malnutrition Assess - Dietary Evaluation Nutrition/Malnutrition Findings: Nutrition Notes Start: 10/07/21 15:34 Freq: Status: Active Protocol: Document 10/07/21 15:34 KATIANA (Rec: 10/07/21 15:54 KATIANA [id number]) Nutrition Notes Need for Assessment generated from: group account director,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 Current Diet NPO (since 10/06 22:57). Labs/Tests 10/07: Na 162, Cl 122.5, BUN 43, Glu 142, Phos 0.6, Mg 2.4. Pertinent Medications 10/07: Insulin, others nutritionally unremarkable. 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 Pt currently on NPO. Pt has missing teeth, according to Physical Assessment History notes. Pt shows no signs of concern for risk of malnutrition at the time, according to Physical Assessment History notes. Pt still on critical conditions, not a candidate for Nutrition Education at the time, will assess feasibility on F/U. Percent of energy/protein needs met: Pt currently on NPO. Burn Absent Trauma Absent GI Symptoms None Difficulty In Chewing Food Allergy No Skin Integrity/Comment Clear, warm, dry. Current % PO Other Minimum of two criteria No Is patient on ventilator? No Is Patient Ambulatory and/or Out of Bed Yes [facility] [ 2023. NUTR.[id number]] Calculation [facility]ations [facility] Additional Notes Protein: 0.8-1 g/Kg; 51-64 g/ day. Fluids: 1 ml/Kcal, or as per MD. Nutrition Intervention Follow-Up By: 10/14/21 Additional Comments Nutrition education will be provided on F/U, if feasible. When pertinent, monitor food tolerance, %PO intake of meals , and BM.
[2021-10-07] MEDS: DOCUSATE SODIUM 100 MG CAP PO SCH ×2 (11:00→22:25)
[2021-10-07] MEDS: FAMOTIDINE 20 MG TAB PO SCH ×2 (11:00→22:25)
[2021-10-07] MEDS: SENNOSIDES 8.6 MG TAB PO SCH ×2 (11:00→22:26)
--- NOTE | 2021-10-07 11:07 | Consultation ---
History of Present Illness Consult date: 10/07/21 Requesting physician: PAPI HARTMAN Reason for consult: other (DKA) History of present illness: PULMONARY/CCM CONSULT NOTE (Full dictation # [id number]) Please see dictated notes for full details Past History Past Medical History: diabetes, other (Unknown) Past Surgical History: Other (Unknown) Social history: other (Unknown) Family history: other (Unknown) Medications and Allergies Allergies Allergy/AdvReac Type Severity Reaction Status Date / Time Sulfa (Sulfonamide AdvReac Unknown Verified 10/06/21 17:45 Antibiotics) Home Medications Medication Instructions Recorded Confirmed Last Taken Type No Known Home Medications [No 10/06/21 10/06/21 Unknown History Reported Home Medications] Active Meds: Active Medications Acetaminophen (Acetaminophen 325 Mg Tab) 650 mg PO Q6H PRN PRN Reason: Pain MILD(1-3)/Fever >100.5/STEINER Dextrose (Dextrose 10% *Hypoglycemia) 0 ml IV PRN PRN; Protocol PRN Reason: Hypoglycemia Docusate Sodium (Docusate Sodium 100 Mg Cap) 100 mg PO BID [facility] Last Admin: 10/07/21 11:00 Dose: 100 mg Famotidine (Famotidine 20 Mg Tab) 20 mg PO BID [facility] Last Admin: 10/07/21 11:00 Dose: 20 mg Heparin Sodium (Porcine) (Heparin 5,000 Unit/1 Ml Vial) 5,000 unit SUB-Q Q8HR [facility] Insulin Human Regular 100 (units/ Sodium Chloride) 100 mls @ 6 mls/hr IV TITR [facility]; Protocol Last Titration: 10/07/21 09:08 Dose: 10 units/hr, 10 mls/hr Sodium Chloride (Nacl 0.9% 1000 Ml) 1,000 mls @ 150 mls/hr IV DIRECT [facility] Last Admin: 10/07/21 01:55 Dose: 150 mls/hr Potassium Chloride/Dextrose/Sod Cl (D5w/0.45% Nacl/Kcl 20 Meq) 20 meq in 1,000 mls @ 125 mls/hr IV DIRECT [facility] Last Admin: 10/07/21 06:36 Dose: 125 mls/hr Ceftriaxone Sodium (Rocephin/Ns 2 Gm/100 Ml) 2 gm in 100 mls @ 200 mls/hr IV Q24H [facility]; Protocol Last Admin: 10/07/21 00:03 Dose: 200 mls/hr Azithromycin (Zithromax/Ns) 500 mg in 250 mls @ 250 mls/hr IV Q24H [facility]; Protocol Last Admin: 10/07/21 03:33 Dose: 250 mls/hr Lactated Ringer's (Lactated Ringers) 1,000 mls @ 999 mls/hr IV BOLUS ONE Stop: 10/07/21 12:15 Morphine Sulfate (Morphine 2 Mg/1 Ml Inj) 2 mg IV Q4H PRN PRN Reason: Pain, Moderate (4-6) Morphine Sulfate (Morphine 4 Mg/1 Ml Inj) 4 mg IV Q4H PRN PRN Reason: Pain , Severe (7-10) Ondansetron HCl (Ondansetron 4 Mg/2 Ml Inj) 4 mg IV Q8H PRN PRN Reason: Nausea And Vomiting Senna (Sennosides 8.6 Mg Tab) 8.6 mg PO Q12HR [facility] Last Admin: 10/07/21 11:00 Dose: 8.6 mg Sodium Chloride (Sodium Chloride 0.9% 10 Ml Flush Syringe) 10 ml IV BID [facility] Last Admin: 10/07/21 11:01 Dose: 10 ml Sodium Chloride (Sodium Chloride 0.9% 10 Ml Flush Syringe) 10 ml IV PRN PRN PRN Reason: LINE FLUSH Physical Examination Vital signs: Vital Signs Temp Pulse Resp BP Pulse Ox 97.4 F L 121 H 18 118/84 97 10/06/21 17:43 10/06/21 17:43 10/06/21 17:43 10/06/21 17:43 10/06/21 17:43 Results - Laboratory Findings CBC and BMP: 10/07/21 05:05 10/07/21 05:05 Abnormal lab findings: Abnormal Labs 10/06/21 10/06/21 10/06/21 18:17 18:17 18:17 WBC 22.6 H RBC 6.57 H Hgb 19.3 H Hct 67.1 H* MCV 102 H MCHC 29 L RDW 15.6 H Seg Neuts % (Manual) 78.0 H Lymphocytes % (Manual) 1.0 L Monocytes % (Manual) Seg Neutrophils # Man 17.6 H Lymphocytes # (Manual) 0.2 L Monocytes # (Manual) 1.4 H VBG pH Sodium 136 L Potassium 5.6 H Chloride 78.5 L Carbon Dioxide 11 L BUN 76 H Creatinine 2.3 H Glucose 1094 H* POC Glucose Lactic Acid 5.10 H* Calcium 11.2 H Phosphorus Magnesium Alkaline Phosphatase 132 H Total Protein 8.9 H Lipase 76 H 10/06/21 10/06/21 10/06/21 20:40 20:40 21:51 WBC RBC Hgb Hct MCV MCHC RDW Seg Neuts % (Manual) Lymphocytes % (Manual) Monocytes % (Manual) Seg Neutrophils # Man Lymphocytes # (Manual) Monocytes # (Manual) VBG pH 7.241 L Sodium Potassium Chloride Carbon Dioxide BUN Creatinine Glucose POC Glucose Lactic Acid 4.50 H* Calcium Phosphorus 7.70 H Magnesium 4.00 H Alkaline Phosphatase Total Protein Lipase 10/06/21 10/06/21 10/07/21 23:23 23:23 00:07 WBC RBC Hgb Hct MCV MCHC RDW Seg Neuts % (Manual) Lymphocytes % (Manual) Monocytes % (Manual) Seg Neutrophils # Man Lymphocytes # (Manual) Monocytes # (Manual) VBG pH Sodium 148 H D Potassium 5.6 H Chloride Carbon Dioxide 8 L* BUN 72 H Creatinine 1.7 H Glucose 779 H* POC Glucose > 600 H Lactic Acid Calcium Phosphorus 4.80 H D Magnesium 3.20 H Alkaline Phosphatase Total Protein Lipase 10/07/21 10/07/21 10/07/21 01:32 02:11 03:21 WBC RBC Hgb Hct MCV MCHC RDW Seg Neuts % (Manual) Lymphocytes % (Manual) Monocytes % (Manual) Seg Neutrophils # Man Lymphocytes # (Manual) Monocytes # (Manual) VBG pH Sodium Potassium Chloride Carbon Dioxide BUN Creatinine Glucose POC Glucose 534 H 537 H 424 H Lactic Acid Calcium Phosphorus Magnesium Alkaline Phosphatase Total Protein Lipase 10/07/21 10/07/21 10/07/21 04:30 05:05 05:05 WBC 23.2 H RBC 6.02 H Hgb 17.7 H Hct 55.7 H D MCV MCHC RDW Seg Neuts % (Manual) 80.0 H Lymphocytes % (Manual) 3.0 L Monocytes % (Manual) 8.0 H Seg Neutrophils # Man 18.6 H Lymphocytes # (Manual) 0.7 L Monocytes # (Manual) 1.9 H VBG pH Sodium 159 H D Potassium Chloride 117.4 H Carbon Dioxide 17 L D BUN 62 H Creatinine 1.5 H Glucose 374 H POC Glucose 378 H Lactic Acid Calcium Phosphorus Magnesium Alkaline Phosphatase Total Protein Lipase 10/07/21 10/07/21 10/07/21 05:28 06:30 08:01 WBC RBC Hgb Hct MCV MCHC RDW Seg Neuts % (Manual) Lymphocytes % (Manual) Monocytes % (Manual) Seg Neutrophils # Man Lymphocytes # (Manual) Monocytes # (Manual) VBG pH Sodium Potassium Chloride Carbon Dioxide BUN Creatinine Glucose POC Glucose 315 H 236 H 256 H Lactic Acid Calcium Phosphorus Magnesium Alkaline Phosphatase Total Protein Lipase 10/07/21 10/07/21 09:01 10:04 WBC RBC Hgb Hct MCV MCHC RDW Seg Neuts % (Manual) Lymphocytes % (Manual) Monocytes % (Manual) Seg Neutrophils # Man Lymphocytes # (Manual) Monocytes # (Manual) VBG pH Sodium Potassium Chloride Carbon Dioxide BUN Creatinine Glucose POC Glucose 276 H 229 H Lactic Acid Calcium Phosphorus Magnesium Alkaline Phosphatase Total Protein Lipase
[2021-10-07] MEDS ORDERED: LACTATED RINGERS 1,000 ML IV ONE (11:15)
[2021-10-07] MEDS ORDERED: LORazepam 2 MG/ML VIAL IV PRN ×3 (12:20)
[2021-10-07] MEDS ORDERED: HALOPERIDOL LACTATE 5 MG/1 ML INJ IV PRN (12:20)
[2021-10-07] MEDS: HEPARIN 5,000 UNIT/1 ML VIAL SUB-Q SCH ×2 (14:16→22:25)
[2021-10-07 14:32] LABS: BUN/Creatinine Ratio 33; Blood Urea Nitrogen 43 mg/dL (9-20); Calcium 9.1 mg/dL (8.4-10.2); Hemolysis Index 10
[2021-10-07] MEDS ORDERED: POTASSIUM PHOSPHATE 45 MMOL in SODIUM CHLORIDE 0.9% 500 ML 500 ML IV ONE (16:30)
--- NOTE | 2021-10-07 16:43 | Consultation ---
History of Present Illness - Reason for Consult Consult date: 10/07/21 - History of Present Illness 41-year-old man past medical history necrotizing pancreatitis, splenectomy, pancreatectomy presented to hospital complaining of nausea and vomiting, cough, altered mental status and weakness. History is obtained from the chart. He was found to be in DKA and started on insulin drip, he is in the ICU presently. History is obtained from the chart due to altered mental status. Afebrile since admission with a white count 23.2. Covid positive. Normal renal function. Procalcitonin normal. Electrolyte derangements due to DKA. Blood cultures no growth so far. He is currently on ceftriaxone, azithromycin. Imaging personally reviewed: CT abdomen pelvis: Patchy groundglass opacity in the bilateral lung bases. No acute infectious abnormality in the abdomen. Past History Past Medical History: diabetes, other (Unknown) Past Surgical History: Other (Unknown) Social history: other (Unknown) Family history: other (Unknown) Medications and Allergies Allergies Allergy/AdvReac Type Severity Reaction Status Date / Time Sulfa (Sulfonamide AdvReac Unknown Verified 10/06/21 17:45 Antibiotics) Home Medications Medication Instructions Recorded Confirmed Last Taken Type No Known Home Medications [No 10/06/21 10/06/21 Unknown History Reported Home Medications] Active Meds: Active Medications Acetaminophen (Acetaminophen 325 Mg Tab) 650 mg PO Q6H PRN PRN Reason: Pain MILD(1-3)/Fever >100.5/[facility] Dextrose (Dextrose 10% *Hypoglycemia) 0 ml IV PRN PRN; Protocol PRN Reason: Hypoglycemia Docusate Sodium (Docusate Sodium 100 Mg Cap) 100 mg PO BID [facility] Last Admin: 10/07/21 11:00 Dose: 100 mg Famotidine (Famotidine 20 Mg Tab) 20 mg PO BID [facility] Last Admin: 10/07/21 11:00 Dose: 20 mg Haloperidol Lactate (Haloperidol Lactate 5 Mg/1 Ml Inj) 5 mg IV Q1H PRN PRN Reason: Unrespon. to mult. doses BZD's Heparin Sodium (Porcine) (Heparin 5,000 Unit/1 Ml Vial) 5,000 unit SUB-Q Q8HR [facility] Last Admin: 10/07/21 14:16 Dose: 5,000 unit Insulin Human Regular 100 (units/ Sodium Chloride) 100 mls @ 6 mls/hr IV TITR [facility]; Protocol Last Titration: 10/07/21 15:04 Dose: 2 units/hr, 2 mls/hr Sodium Chloride (Nacl 0.9% 1000 Ml) 1,000 mls @ 150 mls/hr IV DIRECT [facility] Last Infusion: 10/07/21 08:40 Dose: Infused Ceftriaxone Sodium (Rocephin/Ns 2 Gm/100 Ml) 2 gm in 100 mls @ 200 mls/hr IV Q24H [facility]; Protocol Last Admin: 10/07/21 00:03 Dose: 200 mls/hr Azithromycin (Zithromax/Ns) 500 mg in 250 mls @ 250 mls/hr IV Q24H [facility]; Protocol Last Admin: 10/07/21 03:33 Dose: 250 mls/hr Dextrose (D5w) 1,000 mls @ 125 mls/hr IV DIRECT [facility] Potassium Phosphate 45 mmol/ (Sodium Chloride) 515 mls @ 85 mls/hr IV ONCE ONE Stop: 10/07/21 22:33 Lorazepam (Lorazepam 2 Mg/Ml Vial) 2 mg IV Q1H PRN PRN Reason: CIWA-Ar 8-15 Last Admin: 10/07/21 14:56 Dose: 2 mg Lorazepam (Lorazepam 2 Mg/Ml Vial) 4 mg IV Q1H PRN PRN Reason: CIWA-Ar 16-25 Lorazepam (Lorazepam 2 Mg/Ml Vial) 4 mg IV Q15MIN PRN PRN Reason: CIWA-Ar >25 Morphine Sulfate (Morphine 2 Mg/1 Ml Inj) 2 mg IV Q4H PRN PRN Reason: Pain, Moderate (4-6) Morphine Sulfate (Morphine 4 Mg/1 Ml Inj) 4 mg IV Q4H PRN PRN Reason: Pain , Severe (7-10) Ondansetron HCl (Ondansetron 4 Mg/2 Ml Inj) 4 mg IV Q8H PRN PRN Reason: Nausea And Vomiting Senna (Sennosides 8.6 Mg Tab) 8.6 mg PO Q12HR [facility] Last Admin: 10/07/21 11:00 Dose: 8.6 mg Sodium Chloride (Sodium Chloride 0.9% 10 Ml Flush Syringe) 10 ml IV BID [facility] Last Admin: 10/07/21 11:01 Dose: 10 ml Sodium Chloride (Sodium Chloride 0.9% 10 Ml Flush Syringe) 10 ml IV PRN PRN PRN Reason: LINE FLUSH Review of Systems ROS unobtainable: due to mental status Physical Examination - Physical Exam Narrative exam: Physical Exam: Constitutional: Altered Head, Ears, Nose: Normocephalic, atraumatic. External ears, nose normal Eyes: Conjunctivae/corneas clear. No icterus. No ptosis. Neck: Supple, no meningeal signs Oral: dentition fair, no thrush Cardiovascular: S1, S2 normal. Respiratory: Good air entry, clear to auscultation bilaterally GI: Soft, non-tender; bowel sounds normal. No peritoneal signs. Musculoskeletal: No pedal edema, no cyanosis. Skin: No rash or abscess Hem/Lymphatic: No palpable cervical or supraclavicular nodes. No lymphangitis Psych: Altered Neurological: Altered - Constitutional Vitals: Vital Signs Temp Pulse Resp BP Pulse Ox 98.5 F 116 H 25 H 132/90 91 10/07/21 13:53 10/07/21 16:00 10/07/21 16:00 10/07/21 16:00 10/07/21 16:00 Temperature -Last 24 Hours Temperature 98.5 F Temperature 97.6 F Temperature 97.5 F Temperature 97.4 F Temperature 97.4 F Temperature 97.4 F Results - Labs CBC & Chem 7: 10/07/21 05:05 10/07/21 13:52 Labs: Abnormal lab results 10/06/21 10/06/21 10/06/21 Range/Units 18:17 18:17 18:17 WBC 22.6 H (4.5-11.0) K/mm3 RBC 6.57 H (3.65-5.03) M/mm3 Hgb 19.3 H (11.8-15.2) gm/dl Hct 67.1 H* (35.5-45.6) % MCV 102 H (84-94) fl MCHC 29 L (32-34) % RDW 15.6 H (13.2-15.2) % Seg Neuts % (Manual) 78.0 H (40.0-70.0) % Lymphocytes % (Manual) 1.0 L (13.4-35.0) % Monocytes % (Manual) (0.0-7.3) % Seg Neutrophils # Man 17.6 H (1.8-7.7) K/mm3 Lymphocytes # (Manual) 0.2 L (1.2-5.4) K/mm3 Monocytes # (Manual) 1.4 H (0.0-0.8) K/mm3 D-Dimer (0-234) ng/mlDDU VBG pH (7.320-7.420) Sodium 136 L (137-145) mmol/L Potassium 5.6 H (3.6-5.0) mmol/L Chloride 78.5 L (98-107) mmol/L Carbon Dioxide 11 L (22-30) mmol/L BUN 76 H (9-20) mg/dL Creatinine 2.3 H (0.8-1.3) mg/dL Glucose 1094 H* (75-100) mg/dL POC Glucose (70-105) mg/dL Lactic Acid 5.10 H* (0.7-2.0) mmol/L Calcium 11.2 H (8.4-10.2) mg/dL Phosphorus (2.5-4.5) mg/dL Magnesium (1.7-2.3) mg/dL Ferritin (30.0-300.0) ng/mL Alkaline Phosphatase 132 H (35-129) units/L Lactate Dehydrogenase (91-180) units/L Total Protein 8.9 H (6.3-8.2) g/dL Lipase 76 H (13-60) units/L Coronavirus (PCR) (Negative) 10/06/21 10/06/21 10/06/21 Range/Units 20:40 20:40 21:51 WBC (4.5-11.0) K/mm3 RBC (3.65-5.03) M/mm3 Hgb (11.8-15.2) gm/dl Hct (35.5-45.6) % MCV (84-94) fl MCHC (32-34) % RDW (13.2-15.2) % Seg Neuts % (Manual) (40.0-70.0) % Lymphocytes % (Manual) (13.4-35.0) % Monocytes % (Manual) (0.0-7.3) % Seg Neutrophils # Man (1.8-7.7) K/mm3 Lymphocytes # (Manual) (1.2-5.4) K/mm3 Monocytes # (Manual) (0.0-0.8) K/mm3 D-Dimer (0-234) ng/mlDDU VBG pH 7.241 L (7.320-7.420) Sodium (137-145) mmol/L Potassium (3.6-5.0) mmol/L Chloride (98-107) mmol/L Carbon Dioxide (22-30) mmol/L BUN (9-20) mg/dL Creatinine (0.8-1.3) mg/dL Glucose (75-100) mg/dL POC Glucose (70-105) mg/dL Lactic Acid 4.50 H* (0.7-2.0) mmol/L Calcium (8.4-10.2) mg/dL Phosphorus 7.70 H (2.5-4.5) mg/dL Magnesium 4.00 H (1.7-2.3) mg/dL Ferritin (30.0-300.0) ng/mL Alkaline Phosphatase (35-129) units/L Lactate Dehydrogenase (91-180) units/L Total Protein (6.3-8.2) g/dL Lipase (13-60) units/L Coronavirus (PCR) (Negative) 10/06/21 10/06/21 10/07/21 Range/Units 23:23 23:23 00:07 WBC (4.5-11.0) K/mm3 RBC (3.65-5.03) M/mm3 Hgb (11.8-15.2) gm/dl Hct (35.5-45.6) % MCV (84-94) fl MCHC (32-34) % RDW (13.2-15.2) % Seg Neuts % (Manual) (40.0-70.0) % Lymphocytes % (Manual) (13.4-35.0) % Monocytes % (Manual) (0.0-7.3) % Seg Neutrophils # Man (1.8-7.7) K/mm3 Lymphocytes # (Manual) (1.2-5.4) K/mm3 Monocytes # (Manual) (0.0-0.8) K/mm3 D-Dimer (0-234) ng/mlDDU VBG pH (7.320-7.420) Sodium 148 H D (137-145) mmol/L Potassium 5.6 H (3.6-5.0) mmol/L Chloride (98-107) mmol/L Carbon Dioxide 8 L* (22-30) mmol/L BUN 72 H (9-20) mg/dL Creatinine 1.7 H (0.8-1.3) mg/dL Glucose 779 H* (75-100) mg/dL POC Glucose > 600 H (70-105) mg/dL Lactic Acid (0.7-2.0) mmol/L Calcium (8.4-10.2) mg/dL Phosphorus 4.80 H D (2.5-4.5) mg/dL Magnesium 3.20 H (1.7-2.3) mg/dL Ferritin (30.0-300.0) ng/mL Alkaline Phosphatase (35-129) units/L Lactate Dehydrogenase (91-180) units/L Total Protein (6.3-8.2) g/dL Lipase (13-60) units/L Coronavirus (PCR) (Negative) 10/07/21 10/07/21 10/07/21 Range/Units 01:32 02:11 03:21 WBC (4.5-11.0) K/mm3 RBC (3.65-5.03) M/mm3 Hgb (11.8-15.2) gm/dl Hct (35.5-45.6) % MCV (84-94) fl MCHC (32-34) % RDW (13.2-15.2) % Seg Neuts % (Manual) (40.0-70.0) % Lymphocytes % (Manual) (13.4-35.0) % Monocytes % (Manual) (0.0-7.3) % Seg Neutrophils # Man (1.8-7.7) K/mm3 Lymphocytes # (Manual) (1.2-5.4) K/mm3 Monocytes # (Manual) (0.0-0.8) K/mm3 D-Dimer (0-234) ng/mlDDU VBG pH (7.320-7.420) Sodium (137-145) mmol/L Potassium (3.6-5.0) mmol/L Chloride (98-107) mmol/L Carbon Dioxide (22-30) mmol/L BUN (9-20) mg/dL Creatinine (0.8-1.3) mg/dL Glucose (75-100) mg/dL POC Glucose 534 H 537 H 424 H (70-105) mg/dL Lactic Acid (0.7-2.0) mmol/L Calcium (8.4-10.2) mg/dL Phosphorus (2.5-4.5) mg/dL Magnesium (1.7-2.3) mg/dL Ferritin (30.0-300.0) ng/mL Alkaline Phosphatase (35-129) units/L Lactate Dehydrogenase (91-180) units/L Total Protein (6.3-8.2) g/dL Lipase (13-60) units/L Coronavirus (PCR) (Negative) 10/07/21 10/07/21 10/07/21 Range/Units 04:30 05:05 05:05 WBC 23.2 H (4.5-11.0) K/mm3 RBC 6.02 H (3.65-5.03) M/mm3 Hgb 17.7 H (11.8-15.2) gm/dl Hct 55.7 H D (35.5-45.6) % MCV (84-94) fl MCHC (32-34) % RDW (13.2-15.2) % Seg Neuts % (Manual) 80.0 H (40.0-70.0) % Lymphocytes % (Manual) 3.0 L (13.4-35.0) % Monocytes % (Manual) 8.0 H (0.0-7.3) % Seg Neutrophils # Man 18.6 H (1.8-7.7) K/mm3 Lymphocytes # (Manual) 0.7 L (1.2-5.4) K/mm3 Monocytes # (Manual) 1.9 H (0.0-0.8) K/mm3 D-Dimer (0-234) ng/mlDDU VBG pH (7.320-7.420) Sodium 159 H D (137-145) mmol/L Potassium (3.6-5.0) mmol/L Chloride 117.4 H (98-107) mmol/L Carbon Dioxide 17 L D (22-30) mmol/L BUN 62 H (9-20) mg/dL Creatinine 1.5 H (0.8-1.3) mg/dL Glucose 374 H (75-100) mg/dL POC Glucose 378 H (70-105) mg/dL Lactic Acid (0.7-2.0) mmol/L Calcium (8.4-10.2) mg/dL Phosphorus (2.5-4.5) mg/dL Magnesium (1.7-2.3) mg/dL Ferritin (30.0-300.0) ng/mL Alkaline Phosphatase (35-129) units/L Lactate Dehydrogenase (91-180) units/L Total Protein (6.3-8.2) g/dL Lipase (13-60) units/L Coronavirus (PCR) (Negative) 10/07/21 10/07/21 10/07/21 Range/Units 05:28 06:30 08:01 WBC (4.5-11.0) K/mm3 RBC (3.65-5.03) M/mm3 Hgb (11.8-15.2) gm/dl Hct (35.5-45.6) % MCV (84-94) fl MCHC (32-34) % RDW (13.2-15.2) % Seg Neuts % (Manual) (40.0-70.0) % Lymphocytes % (Manual) (13.4-35.0) % Monocytes % (Manual) (0.0-7.3) % Seg Neutrophils # Man (1.8-7.7) K/mm3 Lymphocytes # (Manual) (1.2-5.4) K/mm3 Monocytes # (Manual) (0.0-0.8) K/mm3 D-Dimer (0-234) ng/mlDDU VBG pH (7.320-7.420) Sodium (137-145) mmol/L Potassium (3.6-5.0) mmol/L Chloride (98-107) mmol/L Carbon Dioxide (22-30) mmol/L BUN (9-20) mg/dL Creatinine (0.8-1.3) mg/dL Glucose (75-100) mg/dL POC Glucose 315 H 236 H 256 H (70-105) mg/dL Lactic Acid (0.7-2.0) mmol/L Calcium (8.4-10.2) mg/dL Phosphorus (2.5-4.5) mg/dL Magnesium (1.7-2.3) mg/dL Ferritin (30.0-300.0) ng/mL Alkaline Phosphatase (35-129) units/L Lactate Dehydrogenase (91-180) units/L Total Protein (6.3-8.2) g/dL Lipase (13-60) units/L Coronavirus (PCR) (Negative) 10/07/21 10/07/21 10/07/21 Range/Units 09:01 09:13 10:04 WBC (4.5-11.0) K/mm3 RBC (3.65-5.03) M/mm3 Hgb (11.8-15.2) gm/dl Hct (35.5-45.6) % MCV (84-94) fl MCHC (32-34) % RDW (13.2-15.2) % Seg Neuts % (Manual) (40.0-70.0) % Lymphocytes % (Manual) (13.4-35.0) % Monocytes % (Manual) (0.0-7.3) % Seg Neutrophils # Man (1.8-7.7) K/mm3 Lymphocytes # (Manual) (1.2-5.4) K/mm3 Monocytes # (Manual) (0.0-0.8) K/mm3 D-Dimer (0-234) ng/mlDDU VBG pH (7.320-7.420) Sodium (137-145) mmol/L Potassium (3.6-5.0) mmol/L Chloride (98-107) mmol/L Carbon Dioxide (22-30) mmol/L BUN (9-20) mg/dL Creatinine (0.8-1.3) mg/dL Glucose (75-100) mg/dL POC Glucose 276 H 229 H (70-105) mg/dL Lactic Acid (0.7-2.0) mmol/L Calcium (8.4-10.2) mg/dL Phosphorus (2.5-4.5) mg/dL Magnesium (1.7-2.3) mg/dL Ferritin (30.0-300.0) ng/mL Alkaline Phosphatase (35-129) units/L Lactate Dehydrogenase (91-180) units/L Total Protein (6.3-8.2) g/dL Lipase (13-60) units/L Coronavirus (PCR) Positive A (Negative) 10/07/21 10/07/21 10/07/21 Range/Units 11:38 13:52 13:52 WBC (4.5-11.0) K/mm3 RBC (3.65-5.03) M/mm3 Hgb (11.8-15.2) gm/dl Hct (35.5-45.6) % MCV (84-94) fl MCHC (32-34) % RDW (13.2-15.2) % Seg Neuts % (Manual) (40.0-70.0) % Lymphocytes % (Manual) (13.4-35.0) % Monocytes % (Manual) (0.0-7.3) % Seg Neutrophils # Man (1.8-7.7) K/mm3 Lymphocytes # (Manual) (1.2-5.4) K/mm3 Monocytes # (Manual) (0.0-0.8) K/mm3 D-Dimer 831.91 H (0-234) ng/mlDDU VBG pH (7.320-7.420) Sodium 162 H* (137-145) mmol/L Potassium (3.6-5.0) mmol/L Chloride 122.5 H (98-107) mmol/L Carbon Dioxide (22-30) mmol/L BUN 43 H (9-20) mg/dL Creatinine (0.8-1.3) mg/dL Glucose 142 H (75-100) mg/dL POC Glucose 197 H (70-105) mg/dL Lactic Acid (0.7-2.0) mmol/L Calcium (8.4-10.2) mg/dL Phosphorus 0.60 L* D (2.5-4.5) mg/dL Magnesium 2.40 H (1.7-2.3) mg/dL Ferritin (30.0-300.0) ng/mL Alkaline Phosphatase (35-129) units/L Lactate Dehydrogenase 221 H (91-180) units/L Total Protein (6.3-8.2) g/dL Lipase (13-60) units/L Coronavirus (PCR) (Negative) 10/07/21 10/07/21 10/07/21 Range/Units 13:52 14:30 14:59 WBC (4.5-11.0) K/mm3 RBC (3.65-5.03) M/mm3 Hgb (11.8-15.2) gm/dl Hct (35.5-45.6) % MCV (84-94) fl MCHC (32-34) % RDW (13.2-15.2) % Seg Neuts % (Manual) (40.0-70.0) % Lymphocytes % (Manual) (13.4-35.0) % Monocytes % (Manual) (0.0-7.3) % Seg Neutrophils # Man (1.8-7.7) K/mm3 Lymphocytes # (Manual) (1.2-5.4) K/mm3 Monocytes # (Manual) (0.0-0.8) K/mm3 D-Dimer (0-234) ng/mlDDU VBG pH (7.320-7.420) Sodium (137-145) mmol/L Potassium (3.6-5.0) mmol/L Chloride (98-107) mmol/L Carbon Dioxide (22-30) mmol/L BUN (9-20) mg/dL Creatinine (0.8-1.3) mg/dL Glucose (75-100) mg/dL POC Glucose 139 H 162 H (70-105) mg/dL Lactic Acid (0.7-2.0) mmol/L Calcium (8.4-10.2) mg/dL Phosphorus (2.5-4.5) mg/dL Magnesium (1.7-2.3) mg/dL Ferritin 1788.0 H (30.0-300.0) ng/mL Alkaline Phosphatase (35-129) units/L Lactate Dehydrogenase (91-180) units/L Total Protein (6.3-8.2) g/dL Lipase (13-60) units/L Coronavirus (PCR) (Negative) Assessment and Plan Cultures: Blood culture no growth so far COVID-19 PCR positive A/P: 41-year-old man past medical history necrotizing pancreatitis, splenectomy, pancreatectomy now with: #COVID-19: With bilateral pneumonia. O2 sats of 91% on room air. #DKA: Currently on insulin drip in the ICU. 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 CT with postop changes. #Acute encephalopathy: Likely secondary to DKA #Leukocytosis: Likely secondary to DKA, possibly secondary to infection. Recs: -If he becomes hypoxic, will start dexamethasone. Patient would be candidate for Remdesivir if requiring supplemental oxygen. -Stopped antibiotics in the setting of normal procalcitonin, leukocytosis likely secondary to DKA. Thank you for the consult, we will continue to follow. Clara Durham MD [facility] ([facility]) O: [phone] F: [phone]
[2021-10-07] MEDS: DEXTROSE 5% IN WATER 1,000 ML IV SCH (17:40)
[2021-10-07 18:32] LABS: BUN/Creatinine Ratio 30; Blood Urea Nitrogen 39 mg/dL (9-20); Calcium 8.8 mg/dL (8.4-10.2); Hemolysis Index 25
--- NOTE | 2021-10-07 21:46 | Consultation ---
DATE OF CONSULTATION: 10/07/2021 PULMONARY CRITICAL CARE CONSULT NOTE CONSULTING PHYSICIAN: Dr. Jazz Moe, Emergency Room physician. REASON FOR CONSULTATION: Diabetic ketoacidosis. CHIEF COMPLAINT AND HISTORY OF PRESENT ILLNESS: As follows: This is a 41-year-old male with a history of necrotizing pancreatitis, status post splenectomy and pancreatectomy, who presented with confusion, vomiting, weight loss and a productive cough. His gave the history to the Emergency Room. About a week ago, the patient felt like he had a sinus infection and perhaps pneumonia. He was treated with Z-JANESSA and prednisone outpatient. He then developed nausea and vomiting with poor appetite. His mentioned that he had been confused and incoherent for the past 2-3 days. They denied any history of diabetes. He was diagnosed with a severe infection according to the and received the pancreatectomy and splenectomy and required several hospitalizations over a 2-year period. Of note, the patient does have a degree of encephalopathy/delirium but did nod his head that he does have a history also of alcohol use in the past. He was evaluated in the Emergency Room, diagnosed with diabetic ketoacidosis and sepsis and we are asked to assist with management. When I stopped by to see him, he was resting in bed, definitely delirious, but in his periods of lucidity, was able to follow some simple commands like showing me 2 fingers in the specific length as well as answering some of my questions appropriately. I do not have any history of loss of consciousness or any trauma. The above is as much of the history of presentation as I have. PAST MEDICAL HISTORY: Necrotizing pancreatitis. PAST SURGICAL HISTORY: Status post splenectomy, status post pancreatectomy. MEDICATIONS: He was on at the time I stopped by to see him were reviewed, pertinent medications included the following: Tylenol 650 mg p.o. q. 6 hours p.r.n. mild pain or fever, azithromycin 500 mg IV daily, Rocephin 2 grams IV daily, Colace 100 mg p.o. b.i.d., Pepcid 20 mg p.o. b.i.d., Haldol 5 mg IV q. 1 hour p.r.n. agitation, heparin 5000 units subcutaneous q. 8 hours, insulin drip was going at 10 units per hour IV, morphine sulfate 2 mg IV q. 4 hours p.r.n. moderate pain and 4 mg IV q. 4 hours p.r.n. severe pain, Zofran 4 mg IV q. 8 hours p.r.n. nausea and vomiting. He was on a D5W half NS drip with 20 mEq of KCl per liter. He did receive 2 grams of cefepime in the Emergency Room and 1 gram of vancomycin. ALLERGIES: SULFA ANTIBIOTICS. Nature of this allergy is unknown. DIET: Thin, chronically ill-looking gentleman, acute weight loss or gain history is unknown. FAMILY AND SOCIAL HISTORY: Lives in the community. He is . He is described as a never smoker in the chart. He tells me he has a history of alcohol use. FAMILY HISTORY: Otherwise unknown. REVIEW OF SYSTEMS: Difficult to obtain secondary to the patient's medical and mental condition. Since he has been here, though no gross hematochezia or melena, no gross hematuria, no hematemesis, no hemoptysis, no witnessed seizures. Review of systems otherwise unobtainable or as in the body of the history above. PHYSICAL EXAMINATION: VITAL SIGNS: At presentation, he was afebrile, temperature 97.4 degrees Fahrenheit, pulse of 121, respiratory rate of 18, blood pressure 118/84, O2 sats were 97%, inspired oxygen concentration at that time was not recorded. When I stopped by to see him, O2 sats were 98% that was on room air. GENERAL: He is a middle-aged thin, chronically ill-looking gentleman, normocephalic, atraumatic. Resting in bed with mildly increased respiratory effort at rest. HEAD, EYES, EARS, NOSE AND THROAT: Anicteric. No conjunctival erythema. Oropharynx was dry. NECK: No gross jugular venous distention, no thyromegaly. Grossly, there were no palpable lymph nodes in the supraclavicular or submandibular lymph node chains. LUNGS: Auscultation of both lung figueroa unremarkable. He had good bilateral air movement and clear. He did have a little bit of a pectus excavatum to the anterior chest wall and the sternal area. HEART: Sounds 1 and 2 again were heard. Regular rate and rhythm at the time of my evaluation, irregular, tachycardia. ABDOMEN: Soft, flat, bowel sounds are positive, nontender, no palpable hepatosplenomegaly. EXTREMITIES: Without overt digital clubbing or cyanosis, no pedal edema. Pedal pulses were 2+ bilaterally. NEUROLOGIC: Pupils were equal, round, about 4 mm, reactive to light. Extraocular muscle movements were intact. He did have spontaneous movements to all extremities; however, he appeared to be delirious and perhaps showed evidence of possible mild cognitive dysfunction. SKIN: Poor turgor without overt cellulitis or rash in the areas I examined, there was an obvious midline abdominal incision as well as a transverse incision in the epigastric area. Please see the wound care nurses' notes for full description of his skin. PSYCHIATRIC: Mood and affect was somewhat anxious. He did not have intact judgment and insight except to simple commands to his name and appeared to be delirious. He was begun to get agitated. LABORATORY DATA: From my review are as follows: Admission white cell count 22,600, hemoglobin 19.3, hematocrit 67.1, platelet count 429, 97 band neutrophils on the manual differential. Venous blood gas showed a pH of 7.241. Serum sodium at presentation 136, potassium 5.6, chloride 79, bicarb 11, BUN was 76, creatinine 2.3 and a glucose of 1094. Lactic acid level was 5.1, magnesium and phosphorus were elevated. Liver function tests were essentially within normal limits, otherwise lipase was elevated at 76. Urinalysis was negative for nitrites and leukocyte esterase. Urine drug screen was presented negative. Lactic acid level is now within normal limits. BUN is down to 62, serum creatinine is down to 1.5. Serum bicarbonate is up to 17. He still has extended anion gap at 29. Two sets of blood cultures are no growth to date. Chest x-ray is essentially unremarkable chest x-ray, no acute findings. He also got a CT of his chest. It was a noncontrast CT of the lung windows shows some faint basilar/dependent patchy ground glass opacifications. No overt consolidation. He had a CT of the abdomen and pelvis, no acute abnormalities. He did have the postsurgical changes, moderate colonic stool burden consistent with constipation. ASSESSMENT: 1. Diabetic ketoacidosis. 2. Acute kidney injury. 3. Intravascular volume depletion. 4. Sepsis syndrome. 5. Pneumonia, bilateral community-acquired. 6. Acute possibly on chronic encephalopathy. 7. Leukocytosis. 8. Hypokalemia at presentation. 9. Metabolic acidosis. 10. Lactic acidosis. PLAN: I do note the ground glass opacifications on the CT scan. I do feel it is appropriate to rule out coronavirus infection in this gentleman and I will go ahead and order COVID-19 testing. We will continue him on the DKA protocol for now. I suspect there may be an element of withdrawal, possibly alcohol withdrawal at play here. I will start alcohol withdrawal protocol empirically and use Ativan and Haldol p.r.n. as necessary. We will continue empiric antibiotic therapy at this time. Procalcitonin level, CRP levels will be followed and to help guide clinical decision making. ID consultation will be in order and I will place an ID consult for the sepsis and otherwise, we will continue volume resuscitation. Electrolytes will be followed and replaced per protocol. I do expect a serum hemoglobin to fall with volume repletion. He will remain on the IV insulin drip at this time. We will continue per protocol. Vasopressors will be ordered to keep mean arterial pressures greater than or equal to about 65 mmHg. Aspiration precautions will be maintained. He is going to be what should say he is appropriately on GI prophylaxis with Pepcid as well as DVT prophylaxis with heparin. Flu and pneumonia vaccination will be addressed per protocol. Nephrology consultation may be in order. He is already showing improvement with volume resuscitation and this number is likely prerenal. Thank you very much for the consult, Dr. Moe. We will follow along and make further recommendations as picture progresses/becomes clearer. He is critically ill on life-sustaining interventions including the IV insulin therapy, at very high risk of from cardiopulmonary and endocrine system decompensation. I note the lipase level. We will trend that he clinically does not appear to have an acute pancreatitis. At this time, I spent about 35-40 minutes of critical care time without overlap and excluding any procedural time that may be necessary. TID: [id number] RECEIPT: [id number] AJSalvatore/LILLIANA
[2021-10-08 02:28] LABS: BUN/Creatinine Ratio 31; Blood Urea Nitrogen 28 mg/dL (9-20); Calcium 8.3 mg/dL (8.4-10.2); Hemolysis Index 17
[2021-10-08] MEDS: DEXTROSE 5% IN WATER 1,000 ML IV SCH ×2 (02:37→12:28)
[2021-10-08] MEDS ORDERED: POTASSIUM CHLORIDE 10 MEQ 10 MEQ/100 ML BAG IV ONE (02:41)
[2021-10-08] MEDS: HEPARIN 5,000 UNIT/1 ML VIAL SUB-Q SCH ×3 (05:59→22:20)
[2021-10-08 06:27] LABS: Hematocrit 48.5 % (35.5-45.6); Hemoglobin 15.6 gm/dl (11.8-15.2); Mean Corpuscular HGB Conc 32 % (32-34); Mean Corpuscular Volume 92 fl (84-94); Red Blood Count 5.25 M/mm3 (3.65-5.03); Red Cell Distribution Width 13.3 % (13.2-15.2)
[2021-10-08 06:32] LABS: Platelet Count 348 K/mm3 (140-440)
[2021-10-08 06:42] LABS: BUN/Creatinine Ratio 24; Blood Urea Nitrogen 22 mg/dL (9-20); Calcium 8.4 mg/dL (8.4-10.2); Hemolysis Index 22
[2021-10-08] MEDS ORDERED: DEXTROSE 50% IN WATER (25GM) 50 ML SYRINGE IV PRN (08:15)
[2021-10-08] MEDS ORDERED: INSULIN REGULAR, HUMAN 100 UNITS/1 ML IV SCH (08:30)
[2021-10-08] MEDS ORDERED: SODIUM CHLORIDE 0.9% 1000 ML 1,000 ML IV ONE (09:00)
[2021-10-08] MEDS ORDERED: POTASSIUM PHOSPHATE 30 MMOL in SODIUM CHLORIDE 0.9% 500 ML 500 ML IV ONE (10:00)
[2021-10-08] MEDS: FAMOTIDINE 20 MG TAB PO SCH ×2 (10:58→22:20)
[2021-10-08] MEDS: DOCUSATE SODIUM 100 MG CAP PO SCH ×2 (10:58→22:20)
[2021-10-08] MEDS: SENNOSIDES 8.6 MG TAB PO SCH ×2 (10:58→22:26)
--- NOTE | 2021-10-08 11:10 | Progress Note ---
<GEN ODONNELL - Last Filed: 10/08/21 15:05> Assessment and Plan Assessment and plan: This is a 41-year-old male with past medical history of necrotizing pancreatitis s/p pancreatectomy, splenectomy and borderline DM admitted for sepsis and DKA Hospital Course to Date: 10/07: Patient remains encephalopathic, still on the DKA protocol. Anion gap still open this am, additional IVF bolus administered. Renal function is improving, however worsening hypernatremia also noted, IVF switched to D5W. Plan to transition to SubQ insulin once gap is closed X2. Continue IV Abx for now for CAP, COVID PCR pending. 10/08: Patient is still with AMS and lethargy, remains on RA. Will check a CT head/brain and Neurology consult for Encephalopathy. COVID PCR positive, however no treatment warranted at this time since patient does not required any O2 supplementation. ID is also following, IV Abx discontinued. Patient transitioned to subQ insulin. Concern for possible aspiration, speech swallow eval ordered. Continue D5w in the setting of hypernatremia and no PO intake. Assessment and Plan #Diabetic Ketoacidosis (DKA) - Presented with high BG and +ketones in UA - A1C 16.5 - Anion gap closed, transitioned to SubQ insulin - c/f aspiration, speech swallow eval - Continue IVF for now - Monitor and replace electrolytes as needed - Monitor anion gap - Serial BMP, mag, & phosp #Sepsis POA #Community Acquired Pneumonia (CAP) #COVID Positive - Presented with leukocytosis, tachycardia, elevated lactic, most likely due to DKA - CT of the chest reveals patchy groundglass opacities in lung bases likely representing infectious/inflammatory etiology - COVID PCR came back positive - UA unremarkable, +ketones - ID is on consult, does not recommend any treatment at this time - IV Abx discontinued - Blood culture pending - Daily CBC monitor #Acute Kidney Injury (TICO) most likely ATN #Hypernatremia - Most likely related to dehydration/ DKA - Baseline is unknown, Scr. downtrending post IV hydration - Na remains elevated - Continue IV fluid resuscitation therapy for now - Strict intake and output - Monitor and replace electrolytes as needed - Serial BMP, mag, & phosp #Acute Metabolic Encephalopathy - Possibly secondary to underlying DKA - Patient remains with AMS and lethargy this am - CT head/brain w/o con - Neurology consulted - Continue IV fluid resuscitation therapy - Maintenance of sleep-wake cycle, avoid delirium #GI/DVT prophylaxis - PPI: Pepcid - Continue AC- heparin SubQ - SCDs to bilateral lower extremities while in bed The high probability of a clinically significant, sudden or life threatening deterioration of the [multiple] system(s) required my full and direct attention, intervention and personal management. The aggregate critical care time was [60] minutes. This time is in addition to time spent performing reported procedures but includes the following: [x] Data Review and interpretation [x] Patient assessment and monitoring of vital signs [x] Documentation [x] Medication orders and management Disposition Plan: ICU Total Time Spent with Patient (Minutes): 60 History Interval history: Patient seen and examined at the bedside. Patient remains on RA, still confused and lethargic this am. Anion GAP closed this am, transitioned to SubQ insulin. RICARDO overnight Hospitalist Physical - Constitutional Vitals: Temp Pulse Resp BP Pulse Ox 97.9 F 88 16 135/84 94 10/08/21 08:00 10/08/21 10:30 10/08/21 10:30 10/08/21 10:30 10/08/21 10:30 General appearance: Present: no acute distress, cachectic - EENT Eyes: Present: PERRL ENT: hearing intact - Neck Neck: Present: normal ROM - Respiratory Respiratory effort: normal Respiratory: bilateral: diminished - Cardiovascular Rhythm: regular Heart Sounds: Present: S1 & S2 - Extremities Extremities: no ischemia, pulses intact, pulses symmetrical Peripheral Pulses: within normal limits - Abdominal General gastrointestinal: soft, non-distended, normal bowel sounds - Integumentary Integumentary: Present: warm, dry - Psychiatric Psychiatric: cooperative, other (Lethargic and confused) - Neurologic Neurologic: other (Lethargic and confused) - Allied Health Allied health notes reviewed: nursing Results - Labs CBC & Chem 7: 10/08/21 05:42 10/08/21 05:42 Labs: Laboratory Last Values WBC 19.3 K/mm3 (4.5-11.0) H 10/08/21 05:42 RBC 5.25 M/mm3 (3.65-5.03) H 10/08/21 05:42 Hgb 15.6 gm/dl (11.8-15.2) H 10/08/21 05:42 Hct 48.5 % (35.5-45.6) H D 10/08/21 05:42 MCV 92 fl (84-94) 10/08/21 05:42 MCH 30 pg (28-32) 10/08/21 05:42 MCHC 32 % (32-34) 10/08/21 05:42 RDW 13.3 % (13.2-15.2) 10/08/21 05:42 Plt Count 348 K/mm3 (140-440) 10/08/21 05:42 Add Manual Diff Complete 10/07/21 05:05 Total Counted 100 10/07/21 05:05 Seg Neuts % (Manual) 80.0 % (40.0-70.0) H 10/07/21 05:05 Band Neutrophils % 9.0 % 10/07/21 05:05 Lymphocytes % (Manual) 3.0 % (13.4-35.0) L 10/07/21 05:05 Reactive Lymphs % (Man) 0 % 10/07/21 05:05 Monocytes % (Manual) 8.0 % (0.0-7.3) H 10/07/21 05:05 Eosinophils % (Manual) 0 % (0.0-4.3) 10/07/21 05:05 Basophils % (Manual) 0 % (0.0-1.8) 10/06/21 18:17 Metamyelocytes % 0 % 10/07/21 05:05 Myelocytes % 0 % 10/07/21 05:05 Promyelocytes % 0 % 10/07/21 05:05 Blast Cells % 0 % 10/07/21 05:05 Nucleated RBC % Not Reportable 10/07/21 05:05 Seg Neutrophils # Man 18.6 K/mm3 (1.8-7.7) H 10/07/21 05:05 Band Neutrophils # 2.1 K/mm3 10/07/21 05:05 Lymphocytes # (Manual) 0.7 K/mm3 (1.2-5.4) L 10/07/21 05:05 Abs React Lymphs (Man) 0.0 K/mm3 10/07/21 05:05 Monocytes # (Manual) 1.9 K/mm3 (0.0-0.8) H 10/07/21 05:05 Eosinophils # (Manual) 0.0 K/mm3 (0.0-0.4) 10/07/21 05:05 Basophils # (Manual) 0.0 K/mm3 (0.0-0.1) 10/07/21 05:05 Metamyelocytes # 0.0 K/mm3 10/07/21 05:05 Myelocytes # 0.0 K/mm3 10/07/21 05:05 Promyelocytes # 0.0 K/mm3 10/07/21 05:05 Blast Cells # 0.0 K/mm3 10/07/21 05:05 WBC Morphology Not Reportable 10/07/21 05:05 Hypersegmented Neuts Not Reportable 10/07/21 05:05 Hyposegmented Neuts Not Reportable 10/07/21 05:05 Hypogranular Neuts Not Reportable 10/07/21 05:05 Smudge Cells Not Reportable 10/07/21 05:05 Toxic Granulation Not Reportable 10/07/21 05:05 Toxic Vacuolation Not Reportable 10/07/21 05:05 Dohle Bodies Not Reportable 10/07/21 05:05 Pelger-Huet Anomaly Not Reportable 10/07/21 05:05 Bib Rods Not Reportable 10/07/21 05:05 Platelet Estimate Consistent w auto 10/07/21 05:05 Clumped Platelets Not Reportable 10/07/21 05:05 Plt Clumps, EDTA Not Reportable 10/07/21 05:05 Large Platelets Not Reportable 10/07/21 05:05 Giant Platelets Not Reportable 10/07/21 05:05 Platelet Satelliting Not Reportable 10/07/21 05:05 Plt Morphology Comment Not Reportable 10/07/21 05:05 RBC Morphology Not Reportable 10/07/21 05:05 Dimorphic RBCs Not Reportable 10/07/21 05:05 Polychromasia Not Reportable 10/07/21 05:05 Hypochromasia Not Reportable 10/07/21 05:05 Poikilocytosis Not Reportable 10/07/21 05:05 Anisocytosis Not Reportable 10/07/21 05:05 Microcytosis Not Reportable 10/07/21 05:05 Macrocytosis 1+ 10/07/21 05:05 Spherocytes Not Reportable 10/07/21 05:05 Pappenheimer Bodies Not Reportable 10/07/21 05:05 Sickle Cells Not Reportable 10/07/21 05:05 Target Cells Not Reportable 10/07/21 05:05 Tear Drop Cells Not Reportable 10/07/21 05:05 Ovalocytes Not Reportable 10/07/21 05:05 Helmet Cells Not Reportable 10/07/21 05:05 [place] Bodies Not Reportable 10/07/21 05:05 Maynard Rings Not Reportable 10/07/21 05:05 Moore Cells Not Reportable 10/07/21 05:05 Bite Cells Not Reportable 10/07/21 05:05 Crenated Cell Not Reportable 10/07/21 05:05 Elliptocytes Not Reportable 10/07/21 05:05 Acanthocytes (Spur) Not Reportable 10/07/21 05:05 Rouleaux Not Reportable 10/07/21 05:05 Hemoglobin C Crystals Not Reportable 10/07/21 05:05 Schistocytes Not Reportable 10/07/21 05:05 Malaria parasites Not Reportable 10/07/21 05:05 Nj Bodies Not Reportable 10/07/21 05:05 Hem Pathologist Commnt No 10/07/21 05:05 D-Dimer 831.91 ng/mlDDU (0-234) H 10/07/21 13:52 VBG pH 7.241 (7.320-7.420) L 10/06/21 21:51 Sodium 158 mmol/L (137-145) H 10/08/21 05:42 Potassium 3.6 mmol/L (3.6-5.0) 10/08/21 05:42 Chloride 116.9 mmol/L (98-107) H 10/08/21 05:42 Carbon Dioxide 29 mmol/L (22-30) 10/08/21 05:42 Anion Gap 16 mmol/L 10/08/21 05:42 BUN 22 mg/dL (9-20) H 10/08/21 05:42 Creatinine 0.9 mg/dL (0.8-1.3) 10/08/21 05:42 Estimated GFR > 60 ml/min 10/08/21 05:42 BUN/Creatinine Ratio 24 % 10/08/21 05:42 Glucose 135 mg/dL (75-100) H 10/08/21 05:42 POC Glucose 182 mg/dL (70-105) H 10/08/21 10:02 Hemoglobin A1c 16.5 % (4-6) H 10/08/21 05:42 Lactic Acid 1.60 mmol/L (0.7-2.0) 10/06/21 23:23 Calcium 8.4 mg/dL (8.4-10.2) 10/08/21 05:42 Phosphorus 2.10 mg/dL (2.5-4.5) L 10/08/21 05:42 Magnesium 2.10 mg/dL (1.7-2.3) 10/08/21 05:42 Ferritin 1788.0 ng/mL (30.0-300.0) H 10/07/21 13:52 Total Bilirubin 0.40 mg/dL (0.1-1.2) 10/06/21 18:17 AST 10 units/L (5-40) 10/06/21 18:17 ALT 15 units/L (7-56) 10/06/21 18:17 Alkaline Phosphatase 132 units/L (35-129) H 10/06/21 18:17 Lactate Dehydrogenase 221 units/L (91-180) H 10/07/21 13:52 C-Reactive Protein 0.90 mg/dL (0.00-1.30) 10/07/21 13:52 Total Protein 8.9 g/dL (6.3-8.2) H 10/06/21 18:17 Albumin 4.7 g/dL (3.9-5) 10/06/21 18:17 Albumin/Globulin Ratio 1.1 % 10/06/21 18:17 Lipase 76 units/L (13-60) H 10/06/21 18:17 Procalcitonin 0.16 ng/mL (<0.15) 10/07/21 13:52 Urine Color Straw (Yellow) 10/06/21 19:19 Urine Turbidity Clear (Clear) 10/06/21 19:19 Urine pH 5.0 (5.0-7.0) 10/06/21 19:19 Ur Specific [place] 1.025 (1.003-1.030) 10/06/21 19:19 Urine Protein <15 mg/dl mg/dL (Negative) 10/06/21 19:19 Urine Glucose (UA) >=500 mg/dL (Negative) 10/06/21 19:19 Urine Ketones 80 mg/dL (Negative) 10/06/21 19:19 Urine Blood Neg (Negative) 10/06/21 19:19 Urine Nitrite Neg (Negative) 10/06/21 19:19 Urine Bilirubin Neg (Negative) 10/06/21 19:19 Urine Urobilinogen < 2.0 mg/dL (<2.0) 10/06/21 19:19 Ur Leukocyte Esterase Neg (Negative) 10/06/21 19:19 Urine WBC (Auto) 1.0 /HPF (0.0-6.0) 10/06/21 19:19 Urine RBC (Auto) < 1.0 /HPF (0.0-6.0) 10/06/21 19:19 Hyaline Casts 1 /LPF 10/06/21 19:19 Urine Mucus Few /HPF 10/06/21 19:19 Urine Opiates Screen Negative 10/06/21 19:19 Urine Methadone Screen Negative 10/06/21 19:19 Ur Barbiturates Screen Negative 10/06/21 19:19 Ur Phencyclidine Scrn Negative 10/06/21 19:19 Ur Amphetamines Screen Negative 10/06/21 19:19 U Benzodiazepines Scrn Negative 10/06/21 19:19 Urine Cocaine Screen Negative 10/06/21 19:19 U Marijuana (THC) Screen Negative 10/06/21 19:19 Drugs of Abuse Note Disclamer 10/06/21 19:19 Coronavirus (PCR) Positive (Negative) A 10/07/21 09:13 Microbiology: Microbiology 10/06/21 19:44 Peripheral/Venous Blood Culture - Preliminary NO GROWTH AFTER 24 HOURS 10/06/21 19:44 Peripheral/Venous Blood Culture - Preliminary NO GROWTH AFTER 24 HOURS Ocampo/IV: Voiding Method Incontinent Active Medications - Current Medications Current Medications: Generic Name Dose Route Start Last Admin Trade Name Freq PRN Reason Stop Dose Admin Acetaminophen 650 mg 10/06/21 22:56 Acetaminophen 325 Mg Tab PO Q6H PRN Pain MILD(1-3)/Fever >100.5/STEINER Dextrose 0 ml 10/06/21 23:47 Dextrose 10% *Hypoglycemia IV PRN PRN Hypoglycemia Protocol Docusate Sodium 100 mg 10/07/21 10:00 10/08/21 10:58 Docusate Sodium 100 Mg Cap PO Not Given BID [facility] Famotidine 20 mg 10/07/21 10:00 10/08/21 10:58 Famotidine 20 Mg Tab PO Not Given BID [facility] Haloperidol Lactate 5 mg 10/07/21 12:20 Haloperidol Lactate 5 Mg/1 Ml Inj IV Q1H PRN Unrespon. to mult. doses BZD's Heparin Sodium (Porcine) 5,000 unit 10/07/21 14:00 10/08/21 05:59 Heparin 5,000 Unit/1 Ml Vial SUB-Q 5,000 unit Q8HR CARMEN Administration Dextrose 1,000 mls @ 75 mls/hr 10/08/21 09:00 D5w IV 10/09/21 22:19 DIRECT [facility] Potassium Phosphate 30 mmol/ 510 mls @ 85 mls/hr 10/08/21 10:00 10/08/21 10:53 Sodium Chloride IV 10/08/21 15:59 85 mls/hr ONCE ONE Administration Insulin Glargine 20 units 10/08/21 22:00 Insulin Glargine 100 Units/Ml SUB-Q QHS [facility] Insulin Human Lispro 0 unit 10/08/21 11:30 Insulin Lispro 100 Unit/Ml SUB-Q ACHS [facility] Protocol Insulin Human Regular 12 units 10/08/21 08:30 10/08/21 08:56 Insulin Regular, Human 100 Units/1 Ml IV 10/08/21 11:30 12 units ONCE@0830 CARMEN Administration Lorazepam 2 mg 10/07/21 12:20 10/07/21 14:56 Lorazepam 2 Mg/Ml Vial IV 2 mg Q1H PRN Administration CIWA-Ar 8-15 Lorazepam 4 mg 10/07/21 12:20 Lorazepam 2 Mg/Ml Vial IV Q1H PRN CIWA-Ar 16-25 Lorazepam 4 mg 10/07/21 12:20 Lorazepam 2 Mg/Ml Vial IV Q15MIN PRN CIWA-Ar >25 Morphine Sulfate 2 mg 10/06/21 22:56 Morphine 2 Mg/1 Ml Inj IV Q4H PRN Pain, Moderate (4-6) Morphine Sulfate 4 mg 10/06/21 22:56 Morphine 4 Mg/1 Ml Inj IV Q4H PRN Pain , Severe (7-10) Ondansetron HCl 4 mg 10/06/21 22:56 Ondansetron 4 Mg/2 Ml Inj IV Q8H PRN Nausea And Vomiting Senna 8.6 mg 10/07/21 10:00 10/08/21 10:58 Sennosides 8.6 Mg Tab PO Not Given Q12HR CARMEN Sodium Chloride 10 ml 10/07/21 10:00 10/07/21 22:26 Sodium Chloride 0.9% 10 Ml Flush Syringe IV 10 ml BID CARMEN Administration Sodium Chloride 10 ml 10/06/21 22:56 Sodium Chloride 0.9% 10 Ml Flush Syringe IV PRN PRN LINE FLUSH Nutrition/Malnutrition Assess - Dietary Evaluation Nutrition/Malnutrition Findings: Nutrition Notes Start: 10/07/21 15:34 Freq: Status: Active Protocol: Document 10/07/21 15:34 KATIANA (Rec: 10/07/21 15:54 KATIANA [id number]) Nutrition Notes 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 Current Diet NPO (since 10/06 22:57). Labs/Tests 10/07: Na 162, Cl 122.5, BUN 43, Glu 142, Phos 0.6, Mg 2.4. Pertinent Medications 10/07: Insulin, others nutritionally unremarkable. 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 Weight Status Appropriate Subjective/Other Information RD consult for risk of malnutrition assessment, and nutrition education on new onset diabetes. Pt currently on NPO. Pt has missing teeth, according to Physical Assessment History notes. Pt shows no signs of concern for risk of malnutrition at the time, according to Physical Assessment History notes. Pt still on critical conditions, not a candidate for Nutrition Education at the time, will assess feasibility on F/U. Percent of energy/protein needs met: Pt currently on NPO. Burn Absent Trauma Absent GI Symptoms None Difficulty In Chewing Food Allergy No Skin Integrity/Comment Clear, warm, dry. Current % PO Other Minimum of two criteria No Is patient on ventilator? No Is Patient Ambulatory and/or Out of Bed Yes REE-([place]-ambulatory/OOB) [ 2023.269 [id number]] Calculation [facility]ations [facility] Additional Notes Protein: 0.8-1 g/Kg; 51-64 g/ day. Fluids: 1 ml/Kcal, or as per MD. Nutrition Intervention Follow-Up By: 10/14/21 Additional Comments Nutrition education will be provided on F/U, if feasible. When pertinent, monitor food tolerance, %PO intake of meals , and BM. <DELANO CHEEMA - Last Filed: 10/09/21 07:43> Assessment and Plan Assessment and plan: I saw and evaluated the patient. I agree with the findings and the plan of care as documented in the Nurse Practitioner's~note, with the following corrections and additions. Aspiration precautions, awaiting neurology input considering profound encephalopathy Hospitalist Physical - Constitutional Vitals: Temp Pulse Resp BP Pulse Ox 98.4 F 87 20 112/78 95 10/09/21 05:37 10/09/21 05:37 10/09/21 05:37 10/09/21 05:37 10/09/21 05:37 Results - Labs CBC & Chem 7: 10/09/21 05:38 10/09/21 05:38 Labs: Laboratory Last Values WBC 13.7 K/mm3 (4.5-11.0) H 10/09/21 05:38 RBC 4.82 M/mm3 (3.65-5.03) 10/09/21 05:38 Hgb 14.0 gm/dl (11.8-15.2) 10/09/21 05:38 Hct 44.7 % (35.5-45.6) 10/09/21 05:38 MCV 93 fl (84-94) 10/09/21 05:38 MCH 29 pg (28-32) 10/09/21 05:38 MCHC 31 % (32-34) L 10/09/21 05:38 RDW 13.5 % (13.2-15.2) 10/09/21 05:38 Plt Count 304 K/mm3 (140-440) 10/09/21 05:38 Add Manual Diff Complete 10/07/21 05:05 Total Counted 100 10/07/21 05:05 Seg Neuts % (Manual) 80.0 % (40.0-70.0) H 10/07/21 05:05 Band Neutrophils % 9.0 % 10/07/21 05:05 Lymphocytes % (Manual) 3.0 % (13.4-35.0) L 10/07/21 05:05 Reactive Lymphs % (Man) 0 % 10/07/21 05:05 Monocytes % (Manual) 8.0 % (0.0-7.3) H 10/07/21 05:05 Eosinophils % (Manual) 0 % (0.0-4.3) 10/07/21 05:05 Basophils % (Manual) 0 % (0.0-1.8) 10/06/21 18:17 Metamyelocytes % 0 % 10/07/21 05:05 Myelocytes % 0 % 10/07/21 05:05 Promyelocytes % 0 % 10/07/21 05:05 Blast Cells % 0 % 10/07/21 05:05 Nucleated RBC % Not Reportable 10/07/21 05:05 Seg Neutrophils # Man 18.6 K/mm3 (1.8-7.7) H 10/07/21 05:05 Band Neutrophils # 2.1 K/mm3 10/07/21 05:05 Lymphocytes # (Manual) 0.7 K/mm3 (1.2-5.4) L 10/07/21 05:05 Abs React Lymphs (Man) 0.0 K/mm3 10/07/21 05:05 Monocytes # (Manual) 1.9 K/mm3 (0.0-0.8) H 10/07/21 05:05 Eosinophils # (Manual) 0.0 K/mm3 (0.0-0.4) 10/07/21 05:05 Basophils # (Manual) 0.0 K/mm3 (0.0-0.1) 10/07/21 05:05 Metamyelocytes # 0.0 K/mm3 10/07/21 05:05 Myelocytes # 0.0 K/mm3 10/07/21 05:05 Promyelocytes # 0.0 K/mm3 10/07/21 05:05 Blast Cells # 0.0 K/mm3 10/07/21 05:05 WBC Morphology Not Reportable 10/07/21 05:05 Hypersegmented Neuts Not Reportable 10/07/21 05:05 Hyposegmented Neuts Not Reportable 10/07/21 05:05 Hypogranular Neuts Not Reportable 10/07/21 05:05 Smudge Cells Not Reportable 10/07/21 05:05 Toxic Granulation Not Reportable 10/07/21 05:05 Toxic Vacuolation Not Reportable 10/07/21 05:05 Dohle Bodies Not Reportable 10/07/21 05:05 Pelger-Huet Anomaly Not Reportable 10/07/21 05:05 Bib Rods Not Reportable 10/07/21 05:05 Platelet Estimate Consistent w auto 10/07/21 05:05 Clumped Platelets Not Reportable 10/07/21 05:05 Plt Clumps, EDTA Not Reportable 10/07/21 05:05 Large Platelets Not Reportable 10/07/21 05:05 Giant Platelets Not Reportable 10/07/21 05:05 Platelet Satelliting Not Reportable 10/07/21 05:05 Plt Morphology Comment Not Reportable 10/07/21 05:05 RBC Morphology Not Reportable 10/07/21 05:05 Dimorphic RBCs Not Reportable 10/07/21 05:05 Polychromasia Not Reportable 10/07/21 05:05 Hypochromasia Not Reportable 10/07/21 05:05 Poikilocytosis Not Reportable 10/07/21 05:05 Anisocytosis Not Reportable 10/07/21 05:05 Microcytosis Not Reportable 10/07/21 05:05 Macrocytosis 1+ 10/07/21 05:05 Spherocytes Not Reportable 10/07/21 05:05 Pappenheimer Bodies Not Reportable 10/07/21 05:05 Sickle Cells Not Reportable 10/07/21 05:05 Target Cells Not Reportable 10/07/21 05:05 Tear Drop Cells Not Reportable 10/07/21 05:05 Ovalocytes Not Reportable 10/07/21 05:05 Helmet Cells Not Reportable 10/07/21 05:05 [place] Bodies Not Reportable 10/07/21 05:05 Maynard Rings Not Reportable 10/07/21 05:05 Karla Cells Not Reportable 10/07/21 05:05 Bite Cells Not Reportable 10/07/21 05:05 Crenated Cell Not Reportable 10/07/21 05:05 Elliptocytes Not Reportable 10/07/21 05:05 Acanthocytes (Spur) Not Reportable 10/07/21 05:05 Rouleaux Not Reportable 10/07/21 05:05 Hemoglobin C Crystals Not Reportable 10/07/21 05:05 Schistocytes Not Reportable 10/07/21 05:05 Malaria parasites Not Reportable 10/07/21 05:05 Nj Bodies Not Reportable 10/07/21 05:05 Hem Pathologist Commnt No 10/07/21 05:05 D-Dimer 831.91 ng/mlDDU (0-234) H 10/07/21 13:52 VBG pH 7.241 (7.320-7.420) L 10/06/21 21:51 Sodium 143 mmol/L (137-145) D 10/09/21 05:38 Potassium 3.5 mmol/L (3.6-5.0) L 10/09/21 05:38 Chloride 104.3 mmol/L (98-107) 10/09/21 05:38 Carbon Dioxide 29 mmol/L (22-30) 10/09/21 05:38 Anion Gap 13 mmol/L 10/09/21 05:38 BUN 11 mg/dL (9-20) 10/09/21 05:38 Creatinine 0.5 mg/dL (0.8-1.3) L 10/09/21 05:38 Estimated GFR > 60 ml/min 10/09/21 05:38 BUN/Creatinine Ratio 22 % 10/09/21 05:38 Glucose 277 mg/dL (75-100) H 10/09/21 05:38 POC Glucose 228 mg/dL (70-105) H 10/08/21 22:02 Hemoglobin A1c 16.5 % (4-6) H 10/08/21 05:42 Lactic Acid 1.60 mmol/L (0.7-2.0) 10/06/21 23:23 Calcium 7.4 mg/dL (8.4-10.2) L 10/09/21 05:38 Phosphorus 2.20 mg/dL (2.5-4.5) L 10/09/21 05:38 Magnesium 1.70 mg/dL (1.7-2.3) 10/09/21 05:38 Ferritin 1788.0 ng/mL (30.0-300.0) H 10/07/21 13:52 Total Bilirubin 0.40 mg/dL (0.1-1.2) 10/06/21 18:17 AST 10 units/L (5-40) 10/06/21 18:17 ALT 15 units/L (7-56) 10/06/21 18:17 Alkaline Phosphatase 132 units/L (35-129) H 10/06/21 18:17 Lactate Dehydrogenase 221 units/L (91-180) H 10/07/21 13:52 C-Reactive Protein 0.90 mg/dL (0.00-1.30) 10/07/21 13:52 Total Protein 8.9 g/dL (6.3-8.2) H 10/06/21 18:17 Albumin 4.7 g/dL (3.9-5) 10/06/21 18:17 Albumin/Globulin Ratio 1.1 % 10/06/21 18:17 Lipase 76 units/L (13-60) H 10/06/21 18:17 Procalcitonin 0.16 ng/mL (<0.15) 10/07/21 13:52 Urine Color Straw (Yellow) 10/06/21 19:19 Urine Turbidity Clear (Clear) 10/06/21 19:19 Urine pH 5.0 (5.0-7.0) 10/06/21 19:19 Ur Specific [place] 1.025 (1.003-1.030) 10/06/21 19:19 Urine Protein <15 mg/dl mg/dL (Negative) 10/06/21 19:19 Urine Glucose (UA) >=500 mg/dL (Negative) 10/06/21 19:19 Urine Ketones 80 mg/dL (Negative) 10/06/21 19:19 Urine Blood Neg (Negative) 10/06/21 19:19 Urine Nitrite Neg (Negative) 10/06/21 19:19 Urine Bilirubin Neg (Negative) 10/06/21 19:19 Urine Urobilinogen < 2.0 mg/dL (<2.0) 10/06/21 19:19 Ur Leukocyte Esterase Neg (Negative) 10/06/21 19:19 Urine WBC (Auto) 1.0 /HPF (0.0-6.0) 10/06/21 19:19 Urine RBC (Auto) < 1.0 /HPF (0.0-6.0) 10/06/21 19:19 Hyaline Casts 1 /LPF 10/06/21 19:19 Urine Mucus Few /HPF 10/06/21 19:19 Urine Opiates Screen Negative 10/06/21 19:19 Urine Methadone Screen Negative 10/06/21 19:19 Ur Barbiturates Screen Negative 10/06/21 19:19 Ur Phencyclidine Scrn Negative 10/06/21 19:19 Ur Amphetamines Screen Negative 10/06/21 19:19 U Benzodiazepines Scrn Negative 10/06/21 19:19 Urine Cocaine Screen Negative 10/06/21 19:19 U Marijuana (THC) Screen Negative 10/06/21 19:19 Drugs of Abuse Note Disclamer 10/06/21 19:19 Coronavirus (PCR) Positive (Negative) A 10/07/21 09:13 Microbiology: Microbiology 10/06/21 19:44 Peripheral/Venous Blood Culture - Preliminary NO GROWTH AFTER 48 HOURS 10/06/21 19:44 Peripheral/Venous Blood Culture - Preliminary NO GROWTH AFTER 48 HOURS Ocampo/IV: Voiding Method Incontinent Active Medications - Current Medications Current Medications: Generic Name Dose Route Start Last Admin Trade Name Freq PRN Reason Stop Dose Admin Acetaminophen 650 mg 10/06/21 22:56 Acetaminophen 325 Mg Tab PO Q6H PRN Pain MILD(1-3)/Fever >100.5/STEINER Dextrose 0 ml 10/06/21 23:47 Dextrose 10% *Hypoglycemia IV PRN PRN Hypoglycemia Protocol Docusate Sodium 100 mg 10/07/21 10:00 10/08/21 22:20 Docusate Sodium 100 Mg Cap PO 100 mg BID CARMEN Administration Famotidine 20 mg 10/07/21 10:00 10/08/21 22:20 Famotidine 20 Mg Tab PO 20 mg BID CARMEN Administration Haloperidol Lactate 5 mg 10/07/21 12:20 Haloperidol Lactate 5 Mg/1 Ml Inj IV Q1H PRN Unrespon. to mult. doses BZD's Heparin Sodium (Porcine) 5,000 unit 10/07/21 14:00 10/09/21 05:24 Heparin 5,000 Unit/1 Ml Vial SUB-Q 5,000 unit Q8HR CARMEN Administration Dextrose 1,000 mls @ 75 mls/hr 10/08/21 09:00 10/09/21 02:43 D5w IV 10/09/21 22:19 75 mls/hr DIRECT CARMEN Administration Insulin Glargine 20 units 10/08/21 22:00 10/08/21 22:22 Insulin Glargine 100 Units/Ml SUB-Q 20 units QHS CARMEN Administration Insulin Human Lispro 0 unit 10/08/21 11:30 10/08/21 22:20 Insulin Lispro 100 Unit/Ml SUB-Q 3 unit ACHS CARMEN Administration Protocol Lorazepam 2 mg 10/07/21 12:20 10/07/21 14:56 Lorazepam 2 Mg/Ml Vial IV 2 mg Q1H PRN Administration CIWA-Ar 8-15 Lorazepam 4 mg 10/07/21 12:20 Lorazepam 2 Mg/Ml Vial IV Q1H PRN CIWA-Ar 16-25 Lorazepam 4 mg 10/07/21 12:20 Lorazepam 2 Mg/Ml Vial IV Q15MIN PRN CIWA-Ar >25 Morphine Sulfate 2 mg 10/06/21 22:56 Morphine 2 Mg/1 Ml Inj IV Q4H PRN Pain, Moderate (4-6) Ondansetron HCl 4 mg 10/06/21 22:56 Ondansetron 4 Mg/2 Ml Inj IV Q8H PRN Nausea And Vomiting Senna 8.6 mg 10/07/21 10:00 10/08/21 22:26 Sennosides 8.6 Mg Tab PO 8.6 mg Q12HR CARMEN Administration Sodium Chloride 10 ml 10/07/21 10:00 10/08/21 22:26 Sodium Chloride 0.9% 10 Ml Flush Syringe IV 10 ml BID CARMEN Administration Sodium Chloride 10 ml 10/06/21 22:56 Sodium Chloride 0.9% 10 Ml Flush Syringe IV PRN PRN LINE FLUSH Nutrition/Malnutrition Assess - Dietary Evaluation Nutrition/Malnutrition Findings: Nutrition Notes Start: 10/07/21 15:34 Freq: Status: Active Protocol: Document 10/07/21 15:34 KATIANA (Rec: 10/07/21 15:54 KATIANA [id number]) Nutrition Notes 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 Current Diet NPO (since 10/06 22:57). Labs/Tests 10/07: Na 162, Cl 122.5, BUN 43, Glu 142, Phos 0.6, Mg 2.4. Pertinent Medications 10/07: Insulin, others nutritionally unremarkable. 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 Weight Status Appropriate Subjective/Other Information RD consult for risk of malnutrition assessment, and nutrition education on new onset diabetes. Pt currently on NPO. Pt has missing teeth, according to Physical Assessment History notes. Pt shows no signs of concern for risk of malnutrition at the time, according to Physical Assessment History notes. Pt still on critical conditions, not a candidate for Nutrition Education at the time, will assess feasibility on F/U. Percent of energy/protein needs met: Pt currently on NPO. Burn Absent Trauma Absent GI Symptoms None Difficulty In Chewing Food Allergy No Skin Integrity/Comment Clear, warm, dry. Current % PO Other Minimum of two criteria No Is patient on ventilator? No Is Patient Ambulatory and/or Out of Bed Yes REE-([place] or-ambulatory/OOB) [ 2023.269 [id number]] Calculation Used for Recommendations [facility] Additional Notes Protein: 0.8-1 g/Kg; 51-64 g/ day. Fluids: 1 ml/Kcal, or as per MD. Nutrition Intervention Follow-Up By: 10/14/21 Additional Comments Nutrition education will be provided on F/U, if feasible. When pertinent, monitor food tolerance, %PO intake of meals , and BM.
[2021-10-08] MEDS: INSULIN LISPRO 100 UNIT/ML SUB-Q SCH ×3 (12:29→22:20)
--- NOTE | 2021-10-08 14:01 | Progress Note ---
Assessment and Plan Cultures: Blood culture no growth so far COVID-19 PCR positive A/P: 41-year-old man past medical history necrotizing pancreatitis, splenectomy, pancreatectomy now with: #COVID-19: With bilateral pneumonia. O2 sats of 91% on room air. #DKA: Currently on insulin drip in the ICU. 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 CT with postop changes. #Acute encephalopathy: Likely secondary to DKA #Leukocytosis: Likely secondary to DKA, possibly secondary to infection. Recs: -If he becomes hypoxic, will start dexamethasone. Patient would be candidate for Remdesivir if requiring supplemental oxygen. -Stopped antibiotics in the setting of normal procalcitonin, leukocytosis likely secondary to DKA. Thank you for the consult, we will continue to follow. Clara Durham MD [facility], [facility] ([facility]) O: [phone] F: [phone] Subjective Date of service: 10/08/21 Interval history: Afebrile, white count slightly improved compared to yesterday Objective - Exam Narrative Exam: Physical Exam: Constitutional: Altered Head, Ears, Nose: Normocephalic, atraumatic. External ears, nose normal Eyes: Conjunctivae/corneas clear. No icterus. No ptosis. Neck: Supple, no meningeal signs Oral: dentition fair, no thrush Cardiovascular: S1, S2 normal. Respiratory: Good air entry, clear to auscultation bilaterally GI: Soft, non-tender; bowel sounds normal. No peritoneal signs. Musculoskeletal: No pedal edema, no cyanosis. Skin: No rash or abscess Hem/Lymphatic: No palpable cervical or supraclavicular nodes. No lymphangitis Psych: Altered Neurological: Altered - Constitutional Vitals: Vital Signs Temp Pulse Resp BP Pulse Ox 97.5 F L 74 16 125/83 98 10/08/21 12:00 10/08/21 12:30 10/08/21 12:30 10/08/21 12:30 10/08/21 12:30 Temperature -Last 24 Hours Temperature 97.5 F Temperature 97.9 F Temperature 98.7 F Temperature 98.4 F Temperature 98.1 F Temperature 98.1 F Temperature 98.0 F - Labs CBC & Chem 7: 10/08/21 05:42 10/08/21 05:42 Labs: Abnormal lab results 10/07/21 10/07/21 10/07/21 Range/Units 09:13 13:52 13:52 WBC (4.5-11.0) K/mm3 RBC (3.65-5.03) M/mm3 Hgb (11.8-15.2) gm/dl Hct (35.5-45.6) % D-Dimer 831.91 H (0-234) ng/mlDDU Sodium 162 H* (137-145) mmol/L Potassium (3.6-5.0) mmol/L Chloride 122.5 H (98-107) mmol/L BUN 43 H (9-20) mg/dL Glucose 142 H (75-100) mg/dL POC Glucose (70-105) mg/dL Hemoglobin A1c (4-6) % Calcium (8.4-10.2) mg/dL Phosphorus 0.60 L* D (2.5-4.5) mg/dL Magnesium 2.40 H (1.7-2.3) mg/dL Ferritin (30.0-300.0) ng/mL Lactate Dehydrogenase 221 H (91-180) units/L Coronavirus (PCR) Positive A (Negative) 10/07/21 10/07/21 10/07/21 Range/Units 13:52 14:30 14:59 WBC (4.5-11.0) K/mm3 RBC (3.65-5.03) M/mm3 Hgb (11.8-15.2) gm/dl Hct (35.5-45.6) % D-Dimer (0-234) ng/mlDDU Sodium (137-145) mmol/L Potassium (3.6-5.0) mmol/L Chloride (98-107) mmol/L BUN (9-20) mg/dL Glucose (75-100) mg/dL POC Glucose 139 H 162 H (70-105) mg/dL Hemoglobin A1c (4-6) % Calcium (8.4-10.2) mg/dL Phosphorus (2.5-4.5) mg/dL Magnesium (1.7-2.3) mg/dL Ferritin 1788.0 H (30.0-300.0) ng/mL Lactate Dehydrogenase (91-180) units/L Coronavirus (PCR) (Negative) 10/07/21 10/07/21 10/07/21 Range/Units 18:03 18:05 19:47 WBC (4.5-11.0) K/mm3 RBC (3.65-5.03) M/mm3 Hgb (11.8-15.2) gm/dl Hct (35.5-45.6) % D-Dimer (0-234) ng/mlDDU Sodium 159 H (137-145) mmol/L Potassium (3.6-5.0) mmol/L Chloride 118.9 H (98-107) mmol/L BUN 39 H (9-20) mg/dL Glucose 275 H (75-100) mg/dL POC Glucose 242 H 245 H (70-105) mg/dL Hemoglobin A1c (4-6) % Calcium (8.4-10.2) mg/dL Phosphorus (2.5-4.5) mg/dL Magnesium 2.50 H (1.7-2.3) mg/dL Ferritin (30.0-300.0) ng/mL Lactate Dehydrogenase (91-180) units/L Coronavirus (PCR) (Negative) 10/07/21 10/07/21 10/08/21 Range/Units 21:58 23:18 00:14 WBC (4.5-11.0) K/mm3 RBC (3.65-5.03) M/mm3 Hgb (11.8-15.2) gm/dl Hct (35.5-45.6) % D-Dimer (0-234) ng/mlDDU Sodium (137-145) mmol/L Potassium (3.6-5.0) mmol/L Chloride (98-107) mmol/L BUN (9-20) mg/dL Glucose (75-100) mg/dL POC Glucose 260 H 209 H 181 H (70-105) mg/dL Hemoglobin A1c (4-6) % Calcium (8.4-10.2) mg/dL Phosphorus (2.5-4.5) mg/dL Magnesium (1.7-2.3) mg/dL Ferritin (30.0-300.0) ng/mL Lactate Dehydrogenase (91-180) units/L Coronavirus (PCR) (Negative) 10/08/21 10/08/21 10/08/21 Range/Units 00:59 01:18 02:16 WBC (4.5-11.0) K/mm3 RBC (3.65-5.03) M/mm3 Hgb (11.8-15.2) gm/dl Hct (35.5-45.6) % D-Dimer (0-234) ng/mlDDU Sodium 157 H (137-145) mmol/L Potassium 3.4 L D (3.6-5.0) mmol/L Chloride 118.0 H (98-107) mmol/L BUN 28 H (9-20) mg/dL Glucose 163 H (75-100) mg/dL POC Glucose 139 H 116 H (70-105) mg/dL Hemoglobin A1c (4-6) % Calcium 8.3 L (8.4-10.2) mg/dL Phosphorus 2.20 L (2.5-4.5) mg/dL Magnesium (1.7-2.3) mg/dL Ferritin (30.0-300.0) ng/mL Lactate Dehydrogenase (91-180) units/L Coronavirus (PCR) (Negative) 10/08/21 10/08/21 10/08/21 Range/Units 03:13 04:02 05:01 WBC (4.5-11.0) K/mm3 RBC (3.65-5.03) M/mm3 Hgb (11.8-15.2) gm/dl Hct (35.5-45.6) % D-Dimer (0-234) ng/mlDDU Sodium (137-145) mmol/L Potassium (3.6-5.0) mmol/L Chloride (98-107) mmol/L BUN (9-20) mg/dL Glucose (75-100) mg/dL POC Glucose 112 H 118 H 139 H (70-105) mg/dL Hemoglobin A1c (4-6) % Calcium (8.4-10.2) mg/dL Phosphorus (2.5-4.5) mg/dL Magnesium (1.7-2.3) mg/dL Ferritin (30.0-300.0) ng/mL Lactate Dehydrogenase (91-180) units/L Coronavirus (PCR) (Negative) 10/08/21 10/08/21 10/08/21 Range/Units 05:42 05:42 05:42 WBC 19.3 H (4.5-11.0) K/mm3 RBC 5.25 H (3.65-5.03) M/mm3 Hgb 15.6 H (11.8-15.2) gm/dl Hct 48.5 H D (35.5-45.6) % D-Dimer (0-234) ng/mlDDU Sodium 158 H (137-145) mmol/L Potassium (3.6-5.0) mmol/L Chloride 116.9 H (98-107) mmol/L BUN 22 H (9-20) mg/dL Glucose 135 H (75-100) mg/dL POC Glucose (70-105) mg/dL Hemoglobin A1c 16.5 H (4-6) % Calcium (8.4-10.2) mg/dL Phosphorus 2.10 L (2.5-4.5) mg/dL Magnesium (1.7-2.3) mg/dL Ferritin (30.0-300.0) ng/mL Lactate Dehydrogenase (91-180) units/L Coronavirus (PCR) (Negative) 10/08/21 10/08/21 10/08/21 Range/Units 06:20 08:47 10:02 WBC (4.5-11.0) K/mm3 RBC (3.65-5.03) M/mm3 Hgb (11.8-15.2) gm/dl Hct (35.5-45.6) % D-Dimer (0-234) ng/mlDDU Sodium (137-145) mmol/L Potassium (3.6-5.0) mmol/L Chloride (98-107) mmol/L BUN (9-20) mg/dL Glucose (75-100) mg/dL POC Glucose 133 H 136 H 182 H (70-105) mg/dL Hemoglobin A1c (4-6) % Calcium (8.4-10.2) mg/dL Phosphorus (2.5-4.5) mg/dL Magnesium (1.7-2.3) mg/dL Ferritin (30.0-300.0) ng/mL Lactate Dehydrogenase (91-180) units/L Coronavirus (PCR) (Negative) 10/08/21 Range/Units 12:22 WBC (4.5-11.0) K/mm3 RBC (3.65-5.03) M/mm3 Hgb (11.8-15.2) gm/dl Hct (35.5-45.6) % D-Dimer (0-234) ng/mlDDU Sodium (137-145) mmol/L Potassium (3.6-5.0) mmol/L Chloride (98-107) mmol/L BUN (9-20) mg/dL Glucose (75-100) mg/dL POC Glucose 147 H (70-105) mg/dL Hemoglobin A1c (4-6) % Calcium (8.4-10.2) mg/dL Phosphorus (2.5-4.5) mg/dL Magnesium (1.7-2.3) mg/dL Ferritin (30.0-300.0) ng/mL Lactate Dehydrogenase (91-180) units/L Coronavirus (PCR) (Negative)
--- NOTE | 2021-10-08 14:08 | Progress Note ---
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 - NPO for now - aspiration precautions - prn supplemental oxygen to keep O2 sats > 90% - prn ronchodilators (SHAHRZAD) with pulm hygiene per RT - avoid nephrotoxins, renally dose all medications - continue mobility protocols to prevent pressure ulcers - PT/OT as tolerated - prn analgesia per pain score - Wound care per RN/WCT - continue accuchecks with glycemic control per SSI for target blood glucose < 180 mg/dL - tobacco abstinence counseled at the bedside - home oxygen evaluation at discharge - GI & VTE prophylaxis - Flu & pneumovax per protocol - continue other care per attending / other consultants ... re-evaluate in am & prn .... transfer to medical floor Subjective Date of service: 10/08/21 Principal diagnosis: DKA; TICO; IVVD; Sepsis syndrome; AMS; Pneumonia Interval history: Patient is seen today for: DKA; TICO; IVVD; Sepsis syndrome; AMS; Pneumonia Seen and examined at bedside; 24hour events reviewed; nursing and respiratory care staff consulted; no adverse overnight events reported to me; doing better; off IV insulin drip; No N/V/F/C Objective Vital Signs - 12hr 10/08/21 10/08/21 10/08/21 02:30 03:00 03:30 Temperature Pulse Rate 96 H 115 H 97 H Pulse Rate [ From Monitor] Respiratory 16 13 18 Rate Blood Pressure 128/87 126/90 117/80 O2 Sat by Pulse 97 96 96 Oximetry 10/08/21 10/08/21 10/08/21 04:00 04:30 05:00 Temperature 98.7 F Pulse Rate 109 H 84 98 H Pulse Rate [ 114 H From Monitor] Respiratory 13 17 18 Rate Blood Pressure 137/92 137/89 144/90 O2 Sat by Pulse 96 93 94 Oximetry 10/08/21 10/08/21 10/08/21 05:30 06:00 06:30 Temperature Pulse Rate 103 H 115 H 92 H Pulse Rate [ From Monitor] Respiratory 15 13 18 Rate Blood Pressure 145/95 142/94 132/89 O2 Sat by Pulse 97 95 96 Oximetry 10/08/21 10/08/21 10/08/21 07:00 07:30 08:00 Temperature 97.9 F Pulse Rate 96 H 92 H 80 Pulse Rate [ 84 From Monitor] Respiratory 16 19 16 Rate Blood Pressure 126/92 136/102 119/75 O2 Sat by Pulse 97 97 96 Oximetry 10/08/21 10/08/21 10/08/21 08:30 09:00 09:30 Temperature Pulse Rate 98 H 80 89 Pulse Rate [ From Monitor] Respiratory 9 L 15 20 Rate Blood Pressure 125/89 124/83 137/80 O2 Sat by Pulse 98 96 Oximetry 10/08/21 10/08/21 10/08/21 10:00 10:30 11:00 Temperature Pulse Rate 94 H 88 94 H Pulse Rate [ From Monitor] Respiratory 10 L 16 16 Rate Blood Pressure 143/79 135/84 135/84 O2 Sat by Pulse 97 94 98 Oximetry 10/08/21 10/08/21 10/08/21 11:30 12:00 12:30 Temperature 97.5 F L Pulse Rate 87 74 74 Pulse Rate [ 79 From Monitor] Respiratory 13 15 16 Rate Blood Pressure 135/89 131/81 125/83 O2 Sat by Pulse 97 97 98 Oximetry Constitutional: no acute distress Eyes: non-icteric ENT: oropharynx moist Neck: supple, no lymphadenopathy, no JVD Effort: normal Ascultation: Bilateral: clear, diminished breath sounds Percussion: Bilateral: not dull Cardiovascular: regular rate and rhythm Gastrointestinal: normoactive bowel sounds, soft, non-tender, non-distended Integumentary: erythema (redness to face), other (post op abdominal scars) Extremities: no cyanosis, no edema, pulses normal, no ischemia or petechiae Neurologic: non-focal exam (grossly), pupils equal and round, CN II-XII normal, other (somnolent) Psychiatric: other (somnolent; flat affect) CBC and BMP: 10/08/21 05:42 10/08/21 05:42 ABG, PT/INR, D-dimer: PT/INR, D-dimer D-Dimer 831.91 ng/mlDDU (0-234) H 10/07/21 13:52 Abnormal lab findings: Abnormal Labs 10/06/21 10/06/21 10/06/21 18:17 18:17 18:17 WBC 22.6 H RBC 6.57 H Hgb 19.3 H Hct 67.1 H* MCV 102 H MCHC 29 L RDW 15.6 H Seg Neuts % (Manual) 78.0 H Lymphocytes % (Manual) 1.0 L Monocytes % (Manual) Seg Neutrophils # Man 17.6 H Lymphocytes # (Manual) 0.2 L Monocytes # (Manual) 1.4 H D-Dimer VBG pH Sodium 136 L Potassium 5.6 H Chloride 78.5 L Carbon Dioxide 11 L BUN 76 H Creatinine 2.3 H Glucose 1094 H* POC Glucose Hemoglobin A1c Lactic Acid 5.10 H* Calcium 11.2 H Phosphorus Magnesium Ferritin Alkaline Phosphatase 132 H Lactate Dehydrogenase Total Protein 8.9 H Lipase 76 H Coronavirus (PCR) 10/06/21 10/06/21 10/06/21 20:40 20:40 21:51 WBC RBC Hgb Hct MCV MCHC RDW Seg Neuts % (Manual) Lymphocytes % (Manual) Monocytes % (Manual) Seg Neutrophils # Man Lymphocytes # (Manual) Monocytes # (Manual) D-Dimer VBG pH 7.241 L Sodium Potassium Chloride Carbon Dioxide BUN Creatinine Glucose POC Glucose Hemoglobin A1c Lactic Acid 4.50 H* Calcium Phosphorus 7.70 H Magnesium 4.00 H Ferritin Alkaline Phosphatase Lactate Dehydrogenase Total Protein Lipase Coronavirus (PCR) 10/06/21 10/06/21 10/07/21 23:23 23:23 00:07 WBC RBC Hgb Hct MCV MCHC RDW Seg Neuts % (Manual) Lymphocytes % (Manual) Monocytes % (Manual) Seg Neutrophils # Man Lymphocytes # (Manual) Monocytes # (Manual) D-Dimer VBG pH Sodium 148 H D Potassium 5.6 H Chloride Carbon Dioxide 8 L* BUN 72 H Creatinine 1.7 H Glucose 779 H* POC Glucose > 600 H Hemoglobin A1c Lactic Acid Calcium Phosphorus 4.80 H D Magnesium 3.20 H Ferritin Alkaline Phosphatase Lactate Dehydrogenase Total Protein Lipase Coronavirus (PCR) 10/07/21 10/07/21 10/07/21 01:32 02:11 03:21 WBC RBC Hgb Hct MCV MCHC RDW Seg Neuts % (Manual) Lymphocytes % (Manual) Monocytes % (Manual) Seg Neutrophils # Man Lymphocytes # (Manual) Monocytes # (Manual) D-Dimer VBG pH Sodium Potassium Chloride Carbon Dioxide BUN Creatinine Glucose POC Glucose 534 H 537 H 424 H Hemoglobin A1c Lactic Acid Calcium Phosphorus Magnesium Ferritin Alkaline Phosphatase Lactate Dehydrogenase Total Protein Lipase Coronavirus (PCR) 10/07/21 10/07/21 10/07/21 04:30 05:05 05:05 WBC 23.2 H RBC 6.02 H Hgb 17.7 H Hct 55.7 H D MCV MCHC RDW Seg Neuts % (Manual) 80.0 H Lymphocytes % (Manual) 3.0 L Monocytes % (Manual) 8.0 H Seg Neutrophils # Man 18.6 H Lymphocytes # (Manual) 0.7 L Monocytes # (Manual) 1.9 H D-Dimer VBG pH Sodium 159 H D Potassium Chloride 117.4 H Carbon Dioxide 17 L D BUN 62 H Creatinine 1.5 H Glucose 374 H POC Glucose 378 H Hemoglobin A1c Lactic Acid Calcium Phosphorus Magnesium Ferritin Alkaline Phosphatase Lactate Dehydrogenase Total Protein Lipase Coronavirus (PCR) 10/07/21 10/07/21 10/07/21 05:28 06:30 08:01 WBC RBC Hgb Hct MCV MCHC RDW Seg Neuts % (Manual) Lymphocytes % (Manual) Monocytes % (Manual) Seg Neutrophils # Man Lymphocytes # (Manual) Monocytes # (Manual) D-Dimer VBG pH Sodium Potassium Chloride Carbon Dioxide BUN Creatinine Glucose POC Glucose 315 H 236 H 256 H Hemoglobin A1c Lactic Acid Calcium Phosphorus Magnesium Ferritin Alkaline Phosphatase Lactate Dehydrogenase Total Protein Lipase Coronavirus (PCR) 10/07/21 10/07/21 10/07/21 09:01 09:13 10:04 WBC RBC Hgb Hct MCV MCHC RDW Seg Neuts % (Manual) Lymphocytes % (Manual) Monocytes % (Manual) Seg Neutrophils # Man Lymphocytes # (Manual) Monocytes # (Manual) D-Dimer VBG pH Sodium Potassium Chloride Carbon Dioxide BUN Creatinine Glucose POC Glucose 276 H 229 H Hemoglobin A1c Lactic Acid Calcium Phosphorus Magnesium Ferritin Alkaline Phosphatase Lactate Dehydrogenase Total Protein Lipase Coronavirus (PCR) Positive A 10/07/21 10/07/21 10/07/21 11:38 13:52 13:52 WBC RBC Hgb Hct MCV MCHC RDW Seg Neuts % (Manual) Lymphocytes % (Manual) Monocytes % (Manual) Seg Neutrophils # Man Lymphocytes # (Manual) Monocytes # (Manual) D-Dimer 831.91 H VBG pH Sodium 162 H* Potassium Chloride 122.5 H Carbon Dioxide BUN 43 H Creatinine Glucose 142 H POC Glucose 197 H Hemoglobin A1c Lactic Acid Calcium Phosphorus 0.60 L* D Magnesium 2.40 H Ferritin Alkaline Phosphatase Lactate Dehydrogenase 221 H Total Protein Lipase Coronavirus (PCR) 10/07/21 10/07/21 10/07/21 13:52 14:30 14:59 WBC RBC Hgb Hct MCV MCHC RDW Seg Neuts % (Manual) Lymphocytes % (Manual) Monocytes % (Manual) Seg Neutrophils # Man Lymphocytes # (Manual) Monocytes # (Manual) D-Dimer VBG pH Sodium Potassium Chloride Carbon Dioxide BUN Creatinine Glucose POC Glucose 139 H 162 H Hemoglobin A1c Lactic Acid Calcium Phosphorus Magnesium Ferritin 1788.0 H Alkaline Phosphatase Lactate Dehydrogenase Total Protein Lipase Coronavirus (PCR) 10/07/21 10/07/21 10/07/21 18:03 18:05 19:47 WBC RBC Hgb Hct MCV MCHC RDW Seg Neuts % (Manual) Lymphocytes % (Manual) Monocytes % (Manual) Seg Neutrophils # Man Lymphocytes # (Manual) Monocytes # (Manual) D-Dimer VBG pH Sodium 159 H Potassium Chloride 118.9 H Carbon Dioxide BUN 39 H Creatinine Glucose 275 H POC Glucose 242 H 245 H Hemoglobin A1c Lactic Acid Calcium Phosphorus Magnesium 2.50 H Ferritin Alkaline Phosphatase Lactate Dehydrogenase Total Protein Lipase Coronavirus (PCR) 10/07/21 10/07/21 10/08/21 21:58 23:18 00:14 WBC RBC Hgb Hct MCV MCHC RDW Seg Neuts % (Manual) Lymphocytes % (Manual) Monocytes % (Manual) Seg Neutrophils # Man Lymphocytes # (Manual) Monocytes # (Manual) D-Dimer VBG pH Sodium Potassium Chloride Carbon Dioxide BUN Creatinine Glucose POC Glucose 260 H 209 H 181 H Hemoglobin A1c Lactic Acid Calcium Phosphorus Magnesium Ferritin Alkaline Phosphatase Lactate Dehydrogenase Total Protein Lipase Coronavirus (PCR) 10/08/21 10/08/21 10/08/21 00:59 01:18 02:16 WBC RBC Hgb Hct MCV MCHC RDW Seg Neuts % (Manual) Lymphocytes % (Manual) Monocytes % (Manual) Seg Neutrophils # Man Lymphocytes # (Manual) Monocytes # (Manual) D-Dimer VBG pH Sodium 157 H Potassium 3.4 L D Chloride 118.0 H Carbon Dioxide BUN 28 H Creatinine Glucose 163 H POC Glucose 139 H 116 H Hemoglobin A1c Lactic Acid Calcium 8.3 L Phosphorus 2.20 L Magnesium Ferritin Alkaline Phosphatase Lactate Dehydrogenase Total Protein Lipase Coronavirus (PCR) 10/08/21 10/08/21 10/08/21 03:13 04:02 05:01 WBC RBC Hgb Hct MCV MCHC RDW Seg Neuts % (Manual) Lymphocytes % (Manual) Monocytes % (Manual) Seg Neutrophils # Man Lymphocytes # (Manual) Monocytes # (Manual) D-Dimer VBG pH Sodium Potassium Chloride Carbon Dioxide BUN Creatinine Glucose POC Glucose 112 H 118 H 139 H Hemoglobin A1c Lactic Acid Calcium Phosphorus Magnesium Ferritin Alkaline Phosphatase Lactate Dehydrogenase Total Protein Lipase Coronavirus (PCR) 10/08/21 10/08/21 10/08/21 05:42 05:42 05:42 WBC 19.3 H RBC 5.25 H Hgb 15.6 H Hct 48.5 H D MCV MCHC RDW Seg Neuts % (Manual) Lymphocytes % (Manual) Monocytes % (Manual) Seg Neutrophils # Man Lymphocytes # (Manual) Monocytes # (Manual) D-Dimer VBG pH Sodium 158 H Potassium Chloride 116.9 H Carbon Dioxide BUN 22 H Creatinine Glucose 135 H POC Glucose Hemoglobin A1c 16.5 H Lactic Acid Calcium Phosphorus 2.10 L Magnesium Ferritin Alkaline Phosphatase Lactate Dehydrogenase Total Protein Lipase Coronavirus (PCR) 10/08/21 10/08/21 10/08/21 06:20 08:47 10:02 WBC RBC Hgb Hct MCV MCHC RDW Seg Neuts % (Manual) Lymphocytes % (Manual) Monocytes % (Manual) Seg Neutrophils # Man Lymphocytes # (Manual) Monocytes # (Manual) D-Dimer VBG pH Sodium Potassium Chloride Carbon Dioxide BUN Creatinine Glucose POC Glucose 133 H 136 H 182 H Hemoglobin A1c Lactic Acid Calcium Phosphorus Magnesium Ferritin Alkaline Phosphatase Lactate Dehydrogenase Total Protein Lipase Coronavirus (PCR) 10/08/21 12:22 WBC RBC Hgb Hct MCV MCHC RDW Seg Neuts % (Manual) Lymphocytes % (Manual) Monocytes % (Manual) Seg Neutrophils # Man Lymphocytes # (Manual) Monocytes # (Manual) D-Dimer VBG pH Sodium Potassium Chloride Carbon Dioxide BUN Creatinine Glucose POC Glucose 147 H Hemoglobin A1c Lactic Acid Calcium Phosphorus Magnesium Ferritin Alkaline Phosphatase Lactate Dehydrogenase Total Protein Lipase Coronavirus (PCR) Allied health notes reviewed: nursing
[2021-10-08 17:19] LABS: BUN/Creatinine Ratio 19; Blood Urea Nitrogen 15 mg/dL (9-20); Hemolysis Index 10
--- NOTE | 2021-10-08 19:52 | Cat Scan Report ---
NONENHANCED CT SCAN OF THE HEAD: INDICATION / CLINICAL INFORMATION: 41 years Male; AMS. TECHNIQUE: Routine CT head without contrast. All CT scans at this location are performed using CT dos e reduction for ALARA by means of automated exposure control. COMPARISON: None. FINDINGS: BRAIN / INTRACRANIAL CONTENTS: No acute hemorrhage, mass effect, midline shift, hydrocephalus, or acu te, large territorial infarct. No chronic infarct or focal atrophy. Normal brain volume and ventricul ar/sulcal size for age. No significant white matter abnormality. CRANIOCERVICAL JUNCTION: No significant abnormality. ORBITS: No significant abnormality of visualized orbits. SINUSES / MASTOIDS: No significant abnormality of the visualized paranasal sinuses or mastoid air isidro ls. ADDITIONAL FINDINGS: None. IMPRESSION: No focal mass, hemorrhage, hydrocephalus, or acute, large territorial infarct. Signer Name: Robert Farah MD Signed: 10/08/2021 7:48 PM Workstation Name: [id number]
[2021-10-08] MEDS: INSULIN GLARGINE 100 UNITS/ML SUB-Q SCH (22:22)
[2021-10-09] MEDS: DEXTROSE 5% IN WATER 1,000 ML IV SCH (02:43)
[2021-10-09] MEDS: HEPARIN 5,000 UNIT/1 ML VIAL SUB-Q SCH ×3 (05:24→22:03)
[2021-10-09 06:03] LABS: Hematocrit 44.7 % (35.5-45.6); Mean Corpuscular HGB Conc 31 % (32-34); Mean Corpuscular Volume 93 fl (84-94); Red Blood Count 4.82 M/mm3 (3.65-5.03); Red Cell Distribution Width 13.5 % (13.2-15.2)
[2021-10-09 06:05] LABS: Platelet Count 304 K/mm3 (140-440)
[2021-10-09 06:13] LABS: Blood Urea Nitrogen 11 mg/dL (9-20); Calcium 7.4 mg/dL (8.4-10.2); Hemolysis Index 11
[2021-10-09 06:16] LABS: BUN/Creatinine Ratio 22
[2021-10-09] MEDS: INSULIN LISPRO 100 UNIT/ML SUB-Q SCH ×4 (07:30→22:00)
[2021-10-09] MEDS: FAMOTIDINE 20 MG TAB PO SCH ×2 (09:09→22:03)
[2021-10-09] MEDS: DOCUSATE SODIUM 100 MG CAP PO SCH ×2 (09:09→22:03)
[2021-10-09] MEDS: SENNOSIDES 8.6 MG TAB PO SCH ×2 (09:09→22:03)
--- NOTE | 2021-10-09 09:24 | Consultation ---
History of Present Illness Consult date: 10/09/21 Reason for Consult: Change mental status,DKA,COVID-19 History of present illness: Nausea and Vomiting Generalized weakness History of present illness: 41-year-old male with known history of necrotizing pancreatitis, splenectomy, pancreatectomy presenting to the emergency room today with nausea and vomiting, cough and changes in mental status with generalized weakness. Most of the history was gotten from the ER staff as patient is altered. Family members also not available. Blood glucose was 1094. Work-up in the emergency room today, lab reveals leukocytosis of 22.6, hemoglobin of 19.3 and hematocrit of 67.1. Blood glucose was 1094, potassium of 5.6 CT of the chest reveals patchy groundglass opacities in lung bases likely representing infectious/inflammatory etiology. Patient has been started on empiric IV antibiotics. He is also placed on insulin drip and IV fluid for DKA. Neurology is consulted for evaluation of change in mentation Ct brain is unremarkable he is alert interactive today , follow all command oriented to place and date . Past History Past Medical History: diabetes, other (Unknown) Past Surgical History: Other (Unknown) Social history: other (Unknown) Family history: other (Unknown) Medications and Allergies Allergies Allergy/AdvReac Type Severity Reaction Status Date / Time Sulfa (Sulfonamide AdvReac Unknown Verified 10/06/21 17:45 Antibiotics) Home Medications Medication Instructions Recorded Confirmed Last Taken Type No Known Home Medications [No 10/06/21 10/06/21 Unknown History Reported Home Medications] Active Meds: Active Medications Acetaminophen (Acetaminophen 325 Mg Tab) 650 mg PO Q6H PRN PRN Reason: Pain MILD(1-3)/Fever >100.5/STEINER Dextrose (Dextrose 50% In Water (25gm) 50 Ml Syringe) 0 ml IV Q30MIN PRN; Protocol PRN Reason: Hypoglycemia Insulin Human Regular 100 (units/ Sodium Chloride) 100 mls @ 6 mls/hr IV TITR CARMEN; Protocol Vancomycin HCl (Vancomycin/Ns 1 Gm/250 Ml) 1 gm in 250 mls @ 167.007 mls/hr IV ONCE ONE; Protocol Stop: 10/07/21 00:09 Sodium Chloride (Nacl 0.9% 1000 Ml) 1,000 mls @ 150 mls/hr IV DIRECT CARMEN Potassium Chloride/Dextrose/Sod Cl (D5w/0.45% Nacl/Kcl 20 Meq) 20 meq in 1,000 mls @ 125 mls/hr IV DIRECT CARMEN Potassium Chloride/Dextrose/Sod Cl (D5w/0.45% Nacl/Kcl 20 Meq) 20 meq in 1,000 mls @ 125 mls/hr IV DIRECT CARMEN Morphine Sulfate (Morphine 2 Mg/1 Ml Inj) 2 mg IV Q4H PRN PRN Reason: Pain, Moderate (4-6) Morphine Sulfate (Morphine 4 Mg/1 Ml Inj) 4 mg IV Q4H PRN PRN Reason: Pain , Severe (7-10) Ondansetron HCl (Ondansetron 4 Mg/2 Ml Inj) 4 mg IV Q8H PRN PRN Reason: Nausea And Vomiting Sodium Chloride (Sodium Chloride 0.9% 10 Ml Flush Syringe) 10 ml IV BID CARMEN Sodium Chloride (Sodium Chloride 0.9% 10 Ml Flush Syringe) 10 ml IV PRN PRN PRN Reason: LINE FLUSH Review of Systems ROS unobtainable: due to mental status Past History Past Medical History: diabetes, other (Unknown) Past Surgical History: Other (Unknown) Social history: other (Unknown) Family history: other (Unknown) Medications and Allergies Allergies Allergy/AdvReac Type Severity Reaction Status Date / Time cyclobenzaprine AdvReac Unknown TACHYCARDIA Verified 10/09/21 11:59 [From Flexeril] morphine AdvReac MAKES Verified 10/09/21 11:59 PATIENT BELIGERENT Sulfa (Sulfonamide AdvReac TACHYCARDIA Verified 10/09/21 11:59 Antibiotics) Home Medications Medication Instructions Recorded Confirmed Last Taken Type Multivit-Minerals/Folic Acid 200 mcg PO QDAY 10/09/21 10/09/21 Unknown History [Multivitamin Gummies] Active Meds: Active Medications Acetaminophen (Acetaminophen 325 Mg Tab) 650 mg PO Q6H PRN PRN Reason: Pain MILD(1-3)/Fever >100.5/STEINER Dextrose (Dextrose 10% *Hypoglycemia) 0 ml IV PRN PRN; Protocol PRN Reason: Hypoglycemia Docusate Sodium (Docusate Sodium 100 Mg Cap) 100 mg PO BID [facility] Last Admin: 10/09/21 09:09 Dose: 100 mg Famotidine (Famotidine 20 Mg Tab) 20 mg PO BID [facility] Last Admin: 10/09/21 09:09 Dose: 20 mg Haloperidol Lactate (Haloperidol Lactate 5 Mg/1 Ml Inj) 5 mg IV Q1H PRN PRN Reason: Unrespon. to mult. doses BZD's Heparin Sodium (Porcine) (Heparin 5,000 Unit/1 Ml Vial) 5,000 unit SUB-Q Q8HR [facility] Last Admin: 10/09/21 05:24 Dose: 5,000 unit Dextrose (D5w) 1,000 mls @ 75 mls/hr IV DIRECT CARMEN Stop: 10/09/21 22:19 Last Admin: 10/09/21 02:43 Dose: 75 mls/hr Insulin Glargine (Insulin Glargine 100 Units/Ml) 20 units SUB-Q QHS [facility] Last Admin: 10/08/21 22:22 Dose: 20 units Insulin Human Lispro (Insulin Lispro 100 Unit/Ml) 0 unit SUB-Q ACHS [facility]; Protocol Last Admin: 10/09/21 07:30 Dose: 4 unit Lorazepam (Lorazepam 2 Mg/Ml Vial) 2 mg IV Q1H PRN PRN Reason: CIWA-Ar 8-15 Last Admin: 10/07/21 14:56 Dose: 2 mg Lorazepam (Lorazepam 2 Mg/Ml Vial) 4 mg IV Q1H PRN PRN Reason: CIWA-Ar 16-25 Lorazepam (Lorazepam 2 Mg/Ml Vial) 4 mg IV Q15MIN PRN PRN Reason: CIWA-Ar >25 Morphine Sulfate (Morphine 2 Mg/1 Ml Inj) 2 mg IV Q4H PRN PRN Reason: Pain, Moderate (4-6) Ondansetron HCl (Ondansetron 4 Mg/2 Ml Inj) 4 mg IV Q8H PRN PRN Reason: Nausea And Vomiting Senna (Sennosides 8.6 Mg Tab) 8.6 mg PO Q12HR [facility] Last Admin: 10/09/21 09:09 Dose: 8.6 mg Sodium Chloride (Sodium Chloride 0.9% 10 Ml Flush Syringe) 10 ml IV BID [facility] Last Admin: 10/09/21 09:11 Dose: 10 ml Sodium Chloride (Sodium Chloride 0.9% 10 Ml Flush Syringe) 10 ml IV PRN PRN PRN Reason: LINE FLUSH Physical Examination - Vital Signs Vital Signs: Vital Signs Temp Pulse Resp BP Pulse Ox 97.4 F L 121 H 18 118/84 97 10/06/21 17:43 10/06/21 17:43 10/06/21 17:43 10/06/21 17:43 10/06/21 17:43 - Constitutional General appearance: comfortable - EENT EENT: Present: PERRL, mucous membranes moist - Respiratory Respiratory: Present: chest non-tender, lungs clear, rhonchi - Cardiovascular Cardiovascular: Present: regular rate, normal S1, normal S2 Extremities: Present: no peripheral edema bilatateraly, no clubbing, cyanosis - Gastrointestinal Gastrointestinal: Present: normoactive bowel sounds - Integumentary Integumentary: Present: normal - Neurologic Cranial nerve examination: PERRL, EOMI, intact Speech examination: intact Sensorimotor examination: intact Detailed motor examination: grossly full strength in - Psychiatric Psychiatric: Present: other (he is alert oriented X3 , noaphasia , knows president name and hospital name .) Results - Laboratory Findings CBC and BMP: 10/09/21 05:38 10/09/21 05:38 Abnormal Lab Findings: Abnormal Labs 10/06/21 10/06/21 10/06/21 18:17 18:17 18:17 WBC 22.6 H RBC 6.57 H Hgb 19.3 H Hct 67.1 H* MCV 102 H MCHC 29 L RDW 15.6 H Seg Neuts % (Manual) 78.0 H Lymphocytes % (Manual) 1.0 L Monocytes % (Manual) Seg Neutrophils # Man 17.6 H Lymphocytes # (Manual) 0.2 L Monocytes # (Manual) 1.4 H D-Dimer VBG pH Sodium 136 L Potassium 5.6 H Chloride 78.5 L Carbon Dioxide 11 L BUN 76 H Creatinine 2.3 H Glucose 1094 H* POC Glucose Hemoglobin A1c Lactic Acid 5.10 H* Calcium 11.2 H Phosphorus Magnesium Ferritin Alkaline Phosphatase 132 H Lactate Dehydrogenase Total Protein 8.9 H Lipase 76 H Coronavirus (PCR) 10/06/21 10/06/21 10/06/21 20:40 20:40 21:51 WBC RBC Hgb Hct MCV MCHC RDW Seg Neuts % (Manual) Lymphocytes % (Manual) Monocytes % (Manual) Seg Neutrophils # Man Lymphocytes # (Manual) Monocytes # (Manual) D-Dimer VBG pH 7.241 L Sodium Potassium Chloride Carbon Dioxide BUN Creatinine Glucose POC Glucose Hemoglobin A1c Lactic Acid 4.50 H* Calcium Phosphorus 7.70 H Magnesium 4.00 H Ferritin Alkaline Phosphatase Lactate Dehydrogenase Total Protein Lipase Coronavirus (PCR) 10/06/21 10/06/21 10/07/21 23:23 23:23 00:07 WBC RBC Hgb Hct MCV MCHC RDW Seg Neuts % (Manual) Lymphocytes % (Manual) Monocytes % (Manual) Seg Neutrophils # Man Lymphocytes # (Manual) Monocytes # (Manual) D-Dimer VBG pH Sodium 148 H D Potassium 5.6 H Chloride Carbon Dioxide 8 L* BUN 72 H Creatinine 1.7 H Glucose 779 H* POC Glucose > 600 H Hemoglobin A1c Lactic Acid Calcium Phosphorus 4.80 H D Magnesium 3.20 H Ferritin Alkaline Phosphatase Lactate Dehydrogenase Total Protein Lipase Coronavirus (PCR) 10/07/21 10/07/21 10/07/21 01:32 02:11 03:21 WBC RBC Hgb Hct MCV MCHC RDW Seg Neuts % (Manual) Lymphocytes % (Manual) Monocytes % (Manual) Seg Neutrophils # Man Lymphocytes # (Manual) Monocytes # (Manual) D-Dimer VBG pH Sodium Potassium Chloride Carbon Dioxide BUN Creatinine Glucose POC Glucose 534 H 537 H 424 H Hemoglobin A1c Lactic Acid Calcium Phosphorus Magnesium Ferritin Alkaline Phosphatase Lactate Dehydrogenase Total Protein Lipase Coronavirus (PCR) 10/07/21 10/07/21 10/07/21 04:30 05:05 05:05 WBC 23.2 H RBC 6.02 H Hgb 17.7 H Hct 55.7 H D MCV MCHC RDW Seg Neuts % (Manual) 80.0 H Lymphocytes % (Manual) 3.0 L Monocytes % (Manual) 8.0 H Seg Neutrophils # Man 18.6 H Lymphocytes # (Manual) 0.7 L Monocytes # (Manual) 1.9 H D-Dimer VBG pH Sodium 159 H D Potassium Chloride 117.4 H Carbon Dioxide 17 L D BUN 62 H Creatinine 1.5 H Glucose 374 H POC Glucose 378 H Hemoglobin A1c Lactic Acid Calcium Phosphorus Magnesium Ferritin Alkaline Phosphatase Lactate Dehydrogenase Total Protein Lipase Coronavirus (PCR) 10/07/21 10/07/21 10/07/21 05:28 06:30 08:01 WBC RBC Hgb Hct MCV MCHC RDW Seg Neuts % (Manual) Lymphocytes % (Manual) Monocytes % (Manual) Seg Neutrophils # Man Lymphocytes # (Manual) Monocytes # (Manual) D-Dimer VBG pH Sodium Potassium Chloride Carbon Dioxide BUN Creatinine Glucose POC Glucose 315 H 236 H 256 H Hemoglobin A1c Lactic Acid Calcium Phosphorus Magnesium Ferritin Alkaline Phosphatase Lactate Dehydrogenase Total Protein Lipase Coronavirus (PCR) 10/07/21 10/07/21 10/07/21 09:01 09:13 10:04 WBC RBC Hgb Hct MCV MCHC RDW Seg Neuts % (Manual) Lymphocytes % (Manual) Monocytes % (Manual) Seg Neutrophils # Man Lymphocytes # (Manual) Monocytes # (Manual) D-Dimer VBG pH Sodium Potassium Chloride Carbon Dioxide BUN Creatinine Glucose POC Glucose 276 H 229 H Hemoglobin A1c Lactic Acid Calcium Phosphorus Magnesium Ferritin Alkaline Phosphatase Lactate Dehydrogenase Total Protein Lipase Coronavirus (PCR) Positive A 10/07/21 10/07/21 10/07/21 11:38 13:52 13:52 WBC RBC Hgb Hct MCV MCHC RDW Seg Neuts % (Manual) Lymphocytes % (Manual) Monocytes % (Manual) Seg Neutrophils # Man Lymphocytes # (Manual) Monocytes # (Manual) D-Dimer 831.91 H VBG pH Sodium 162 H* Potassium Chloride 122.5 H Carbon Dioxide BUN 43 H Creatinine Glucose 142 H POC Glucose 197 H Hemoglobin A1c Lactic Acid Calcium Phosphorus 0.60 L* D Magnesium 2.40 H Ferritin Alkaline Phosphatase Lactate Dehydrogenase 221 H Total Protein Lipase Coronavirus (PCR) 10/07/21 10/07/21 10/07/21 13:52 14:30 14:59 WBC RBC Hgb Hct MCV MCHC RDW Seg Neuts % (Manual) Lymphocytes % (Manual) Monocytes % (Manual) Seg Neutrophils # Man Lymphocytes # (Manual) Monocytes # (Manual) D-Dimer VBG pH Sodium Potassium Chloride Carbon Dioxide BUN Creatinine Glucose POC Glucose 139 H 162 H Hemoglobin A1c Lactic Acid Calcium Phosphorus Magnesium Ferritin 1788.0 H Alkaline Phosphatase Lactate Dehydrogenase Total Protein Lipase Coronavirus (PCR) 10/07/21 10/07/21 10/07/21 18:03 18:05 19:47 WBC RBC Hgb Hct MCV MCHC RDW Seg Neuts % (Manual) Lymphocytes % (Manual) Monocytes % (Manual) Seg Neutrophils # Man Lymphocytes # (Manual) Monocytes # (Manual) D-Dimer VBG pH Sodium 159 H Potassium Chloride 118.9 H Carbon Dioxide BUN 39 H Creatinine Glucose 275 H POC Glucose 242 H 245 H Hemoglobin A1c Lactic Acid Calcium Phosphorus Magnesium 2.50 H Ferritin Alkaline Phosphatase Lactate Dehydrogenase Total Protein Lipase Coronavirus (PCR) 10/07/21 10/07/21 10/08/21 21:58 23:18 00:14 WBC RBC Hgb Hct MCV MCHC RDW Seg Neuts % (Manual) Lymphocytes % (Manual) Monocytes % (Manual) Seg Neutrophils # Man Lymphocytes # (Manual) Monocytes # (Manual) D-Dimer VBG pH Sodium Potassium Chloride Carbon Dioxide BUN Creatinine Glucose POC Glucose 260 H 209 H 181 H Hemoglobin A1c Lactic Acid Calcium Phosphorus Magnesium Ferritin Alkaline Phosphatase Lactate Dehydrogenase Total Protein Lipase Coronavirus (PCR) 10/08/21 10/08/21 10/08/21 00:59 01:18 02:16 WBC RBC Hgb Hct MCV MCHC RDW Seg Neuts % (Manual) Lymphocytes % (Manual) Monocytes % (Manual) Seg Neutrophils # Man Lymphocytes # (Manual) Monocytes # (Manual) D-Dimer VBG pH Sodium 157 H Potassium 3.4 L D Chloride 118.0 H Carbon Dioxide BUN 28 H Creatinine Glucose 163 H POC Glucose 139 H 116 H Hemoglobin A1c Lactic Acid Calcium 8.3 L Phosphorus 2.20 L Magnesium Ferritin Alkaline Phosphatase Lactate Dehydrogenase Total Protein Lipase Coronavirus (PCR) 10/08/21 10/08/21 10/08/21 03:13 04:02 05:01 WBC RBC Hgb Hct MCV MCHC RDW Seg Neuts % (Manual) Lymphocytes % (Manual) Monocytes % (Manual) Seg Neutrophils # Man Lymphocytes # (Manual) Monocytes # (Manual) D-Dimer VBG pH Sodium Potassium Chloride Carbon Dioxide BUN Creatinine Glucose POC Glucose 112 H 118 H 139 H Hemoglobin A1c Lactic Acid Calcium Phosphorus Magnesium Ferritin Alkaline Phosphatase Lactate Dehydrogenase Total Protein Lipase Coronavirus (PCR) 10/08/21 10/08/21 10/08/21 05:42 05:42 05:42 WBC 19.3 H RBC 5.25 H Hgb 15.6 H Hct 48.5 H D MCV MCHC RDW Seg Neuts % (Manual) Lymphocytes % (Manual) Monocytes % (Manual) Seg Neutrophils # Man Lymphocytes # (Manual) Monocytes # (Manual) D-Dimer VBG pH Sodium 158 H Potassium Chloride 116.9 H Carbon Dioxide BUN 22 H Creatinine Glucose 135 H POC Glucose Hemoglobin A1c 16.5 H Lactic Acid Calcium Phosphorus 2.10 L Magnesium Ferritin Alkaline Phosphatase Lactate Dehydrogenase Total Protein Lipase Coronavirus (PCR) 10/08/21 10/08/21 10/08/21 06:20 08:47 10:02 WBC RBC Hgb Hct MCV MCHC RDW Seg Neuts % (Manual) Lymphocytes % (Manual) Monocytes % (Manual) Seg Neutrophils # Man Lymphocytes # (Manual) Monocytes # (Manual) D-Dimer VBG pH Sodium Potassium Chloride Carbon Dioxide BUN Creatinine Glucose POC Glucose 133 H 136 H 182 H Hemoglobin A1c Lactic Acid Calcium Phosphorus Magnesium Ferritin Alkaline Phosphatase Lactate Dehydrogenase Total Protein Lipase Coronavirus (PCR) 10/08/21 10/08/21 10/08/21 12:22 15:47 17:40 WBC RBC Hgb Hct MCV MCHC RDW Seg Neuts % (Manual) Lymphocytes % (Manual) Monocytes % (Manual) Seg Neutrophils # Man Lymphocytes # (Manual) Monocytes # (Manual) D-Dimer VBG pH Sodium 154 H Potassium 3.4 L Chloride 114.4 H Carbon Dioxide BUN Creatinine Glucose 185 H POC Glucose 147 H 197 H Hemoglobin A1c Lactic Acid Calcium 8.0 L Phosphorus Magnesium Ferritin Alkaline Phosphatase Lactate Dehydrogenase Total Protein Lipase Coronavirus (PCR) 10/08/21 10/09/21 10/09/21 22:02 05:38 05:38 WBC 13.7 H RBC Hgb Hct MCV MCHC 31 L RDW Seg Neuts % (Manual) Lymphocytes % (Manual) Monocytes % (Manual) Seg Neutrophils # Man Lymphocytes # (Manual) Monocytes # (Manual) D-Dimer VBG pH Sodium Potassium 3.5 L Chloride Carbon Dioxide BUN Creatinine 0.5 L Glucose 277 H POC Glucose 228 H Hemoglobin A1c Lactic Acid Calcium 7.4 L Phosphorus 2.20 L Magnesium Ferritin Alkaline Phosphatase Lactate Dehydrogenase Total Protein Lipase Coronavirus (PCR) 10/09/21 07:39 WBC RBC Hgb Hct MCV MCHC RDW Seg Neuts % (Manual) Lymphocytes % (Manual) Monocytes % (Manual) Seg Neutrophils # Man Lymphocytes # (Manual) Monocytes # (Manual) D-Dimer VBG pH Sodium Potassium Chloride Carbon Dioxide BUN Creatinine Glucose POC Glucose 277 H Hemoglobin A1c Lactic Acid Calcium Phosphorus Magnesium Ferritin Alkaline Phosphatase Lactate Dehydrogenase Total Protein Lipase Coronavirus (PCR) Assessment and Plan Assessment and Plan Assessment and plan: This is a 41-year-old male with past medical history of necrotizing pancreatitis s/p pancreatectomy, splenectomy and borderline DM admitted for sepsis and DKA #Diabetic Ketoacidosis (DKA) - Presented with high BG and +ketones in UA - A1C 16.5 - Anion gap closed, transitioned to SubQ insulin - c/f aspiration, speech swallow eval - Continue IVF for now - Monitor and replace electrolytes as needed - Monitor anion gap - Serial BMP, mag, & phosp #Sepsis POA #Community Acquired Pneumonia (CAP) #COVID Positive - Presented with leukocytosis, tachycardia, elevated lactic, most likely due to DKA - CT of the chest reveals patchy groundglass opacities in lung bases likely representing infectious/inflammatory etiology - COVID PCR came back positive #Acute Kidney Injury (TICO) most likely ATN improved #Hypernatremia - Most likely related to dehydration/ DKA #Acute Metabolic Encephalopathy improved - Possibly secondary to underlying DKA - Patient remains with AMS and lethargy this am - CT head/brain w/o con #GI/DVT prophylaxis - PPI: Pepcid - Continue AC- heparin SubQ - SCDs to bilateral lower extremities while in bed will sign off pt. need to be on SUb Q heparine and or ASA 81 mg
--- NOTE | 2021-10-09 09:58 | Progress Note ---
Assessment and Plan Assessment and plan: 41-year-old man past medical history necrotizing pancreatitis, splenectomy, pancreatectomy now with: COVID-19 with bilateral pneumonia. - CT of the chest reveals patchy groundglass opacities in lung bases likely representing infectious/inflammatory etiology - COVID PCR came back positive Sepsis. Present on admission. Patient meets criteria given the tachycardia, leukocytosis, altered mentation and diagnosis of pneumonia. DKA. Resolved - A1C 16.5 - Anion gap closed, transitioned to SubQ insulin History of necrotizing pancreatitis: Status post hepatectomy and splenectomy. CT with postop changes. Toxic metabolic encephalopathy - CT head/brain w/o con - Neurology follow Leukocytosis. Etiology likely secondary to DKA, possibly secondary to infection. Hypernatremia Acute kidney injury. Etiology secondary to sepsis/ATN. Hospital Course to Date: 10/07: Patient remains encephalopathic, still on the DKA protocol. Anion gap still open this am, additional IVF bolus administered. Renal function is improving, however worsening hypernatremia also noted, IVF switched to D5W. Plan to transition to SubQ insulin once gap is closed X2. Continue IV Abx for now for CAP, COVID PCR pending. 23: Patient is still with AMS and lethargy, remains on RA. Will check a CT head/brain and Neurology consult for Encephalopathy. COVID PCR positive, however no treatment warranted at this time since patient does not required any O2 supplementation. ID is also following, IV Abx discontinued. Patient transitioned to subQ insulin. Concern for possible aspiration, speech swallow eval ordered. Continue D5w in the setting of hypernatremia and no PO intake. 10/09: Patient was transferred to the floor yesterday and is continued on IV fluids. BG better controlled with Lantus 20 units at bedtime. Patient currently not hypoxic so not requiring dexamethasone or remdesivir. Antibiotics were stopped in the setting of normal procalcitonin. Leukocytosis is improved and likely secondary to DKA. Patient still appears to be somewhat altered but no lateralizing signs or symptoms. We will continue to monitor and treat underlying causes History Interval history: No new issues overnight. Hospitalist Physical - Constitutional Vitals: Temp Pulse Resp BP Pulse Ox 98.4 F 87 20 112/78 95 10/09/21 05:37 10/09/21 05:37 10/09/21 05:37 10/09/21 05:37 10/09/21 05:37 General appearance: Present: no acute distress, cachectic - EENT Eyes: Present: PERRL, EOM intact ENT: hearing intact, clear oral mucosa, dentition normal - Neck Neck: Present: supple, normal ROM - Respiratory Respiratory effort: normal Respiratory: bilateral: CTA - Cardiovascular Rhythm: regular Heart Sounds: Present: S1 & S2. Absent: gallop, rub - Extremities Extremities: no ischemia, No edema, Full ROM - Abdominal General gastrointestinal: soft, non-tender, non-distended, normal bowel sounds - Integumentary Integumentary: Present: clear, warm, dry - Neurologic Neurologic: CNII-XII intact, moves all extremities Results - Labs CBC & Chem 7: 10/09/21 05:38 10/09/21 05:38 Labs: Laboratory Last Values WBC 13.7 K/mm3 (4.5-11.0) H 10/09/21 05:38 RBC 4.82 M/mm3 (3.65-5.03) 10/09/21 05:38 Hgb 14.0 gm/dl (11.8-15.2) 10/09/21 05:38 Hct 44.7 % (35.5-45.6) 10/09/21 05:38 MCV 93 fl (84-94) 10/09/21 05:38 MCH 29 pg (28-32) 10/09/21 05:38 MCHC 31 % (32-34) L 10/09/21 05:38 RDW 13.5 % (13.2-15.2) 10/09/21 05:38 Plt Count 304 K/mm3 (140-440) 10/09/21 05:38 Add Manual Diff Complete 10/07/21 05:05 Total Counted 100 10/07/21 05:05 Seg Neuts % (Manual) 80.0 % (40.0-70.0) H 10/07/21 05:05 Band Neutrophils % 9.0 % 10/07/21 05:05 Lymphocytes % (Manual) 3.0 % (13.4-35.0) L 10/07/21 05:05 Reactive Lymphs % (Man) 0 % 10/07/21 05:05 Monocytes % (Manual) 8.0 % (0.0-7.3) H 10/07/21 05:05 Eosinophils % (Manual) 0 % (0.0-4.3) 10/07/21 05:05 Basophils % (Manual) 0 % (0.0-1.8) 10/06/21 18:17 Metamyelocytes % 0 % 10/07/21 05:05 Myelocytes % 0 % 10/07/21 05:05 Promyelocytes % 0 % 10/07/21 05:05 Blast Cells % 0 % 10/07/21 05:05 Nucleated RBC % Not Reportable 10/07/21 05:05 Seg Neutrophils # Man 18.6 K/mm3 (1.8-7.7) H 10/07/21 05:05 Band Neutrophils # 2.1 K/mm3 10/07/21 05:05 Lymphocytes # (Manual) 0.7 K/mm3 (1.2-5.4) L 10/07/21 05:05 Abs React Lymphs (Man) 0.0 K/mm3 10/07/21 05:05 Monocytes # (Manual) 1.9 K/mm3 (0.0-0.8) H 10/07/21 05:05 Eosinophils # (Manual) 0.0 K/mm3 (0.0-0.4) 10/07/21 05:05 Basophils # (Manual) 0.0 K/mm3 (0.0-0.1) 10/07/21 05:05 Metamyelocytes # 0.0 K/mm3 10/07/21 05:05 Myelocytes # 0.0 K/mm3 10/07/21 05:05 Promyelocytes # 0.0 K/mm3 10/07/21 05:05 Blast Cells # 0.0 K/mm3 10/07/21 05:05 WBC Morphology Not Reportable 10/07/21 05:05 Hypersegmented Neuts Not Reportable 10/07/21 05:05 Hyposegmented Neuts Not Reportable 10/07/21 05:05 Hypogranular Neuts Not Reportable 10/07/21 05:05 Smudge Cells Not Reportable 10/07/21 05:05 Toxic Granulation Not Reportable 10/07/21 05:05 Toxic Vacuolation Not Reportable 10/07/21 05:05 Dohle Bodies Not Reportable 10/07/21 05:05 Pelger-Huet Anomaly Not Reportable 10/07/21 05:05 Bib Rods Not Reportable 10/07/21 05:05 Platelet Estimate Consistent w auto 10/07/21 05:05 Clumped Platelets Not Reportable 10/07/21 05:05 Plt Clumps, EDTA Not Reportable 10/07/21 05:05 Large Platelets Not Reportable 10/07/21 05:05 Giant Platelets Not Reportable 10/07/21 05:05 Platelet Satelliting Not Reportable 10/07/21 05:05 Plt Morphology Comment Not Reportable 10/07/21 05:05 RBC Morphology Not Reportable 10/07/21 05:05 Dimorphic RBCs Not Reportable 10/07/21 05:05 Polychromasia Not Reportable 10/07/21 05:05 Hypochromasia Not Reportable 10/07/21 05:05 Poikilocytosis Not Reportable 10/07/21 05:05 Anisocytosis Not Reportable 10/07/21 05:05 Microcytosis Not Reportable 10/07/21 05:05 Macrocytosis 1+ 10/07/21 05:05 Spherocytes Not Reportable 10/07/21 05:05 Pappenheimer Bodies Not Reportable 10/07/21 05:05 Sickle Cells Not Reportable 10/07/21 05:05 Target Cells Not Reportable 10/07/21 05:05 Tear Drop Cells Not Reportable 10/07/21 05:05 Ovalocytes Not Reportable 10/07/21 05:05 Helmet Cells Not Reportable 10/07/21 05:05 Perez-Loyall Bodies Not Reportable 10/07/21 05:05 Udall Rings Not Reportable 10/07/21 05:05 [place] Cells Not Reportable 10/07/21 05:05 Bite Cells Not Reportable 10/07/21 05:05 Crenated Cell Not Reportable 10/07/21 05:05 Elliptocytes Not Reportable 10/07/21 05:05 Acanthocytes (Spur) Not Reportable 10/07/21 05:05 Rouleaux Not Reportable 10/07/21 05:05 Hemoglobin C Crystals Not Reportable 10/07/21 05:05 Schistocytes Not Reportable 10/07/21 05:05 Malaria parasites Not Reportable 10/07/21 05:05 Nj Bodies Not Reportable 10/07/21 05:05 Hem Pathologist Commnt No 10/07/21 05:05 D-Dimer 831.91 ng/mlDDU (0-234) H 10/07/21 13:52 VBG pH 7.241 (7.320-7.420) L 10/06/21 21:51 Sodium 143 mmol/L (137-145) D 10/09/21 05:38 Potassium 3.5 mmol/L (3.6-5.0) L 10/09/21 05:38 Chloride 104.3 mmol/L (98-107) 10/09/21 05:38 Carbon Dioxide 29 mmol/L (22-30) 10/09/21 05:38 Anion Gap 13 mmol/L 10/09/21 05:38 BUN 11 mg/dL (9-20) 10/09/21 05:38 Creatinine 0.5 mg/dL (0.8-1.3) L 10/09/21 05:38 Estimated GFR > 60 ml/min 10/09/21 05:38 BUN/Creatinine Ratio 22 % 10/09/21 05:38 Glucose 277 mg/dL (75-100) H 10/09/21 05:38 POC Glucose 277 mg/dL (70-105) H 10/09/21 07:39 Hemoglobin A1c 16.5 % (4-6) H 10/08/21 05:42 Lactic Acid 1.60 mmol/L (0.7-2.0) 10/06/21 23:23 Calcium 7.4 mg/dL (8.4-10.2) L 10/09/21 05:38 Phosphorus 2.20 mg/dL (2.5-4.5) L 10/09/21 05:38 Magnesium 1.70 mg/dL (1.7-2.3) 10/09/21 05:38 Ferritin 1788.0 ng/mL (30.0-300.0) H 10/07/21 13:52 Total Bilirubin 0.40 mg/dL (0.1-1.2) 10/06/21 18:17 AST 10 units/L (5-40) 10/06/21 18:17 ALT 15 units/L (7-56) 10/06/21 18:17 Alkaline Phosphatase 132 units/L (35-129) H 10/06/21 18:17 Lactate Dehydrogenase 221 units/L (91-180) H 10/07/21 13:52 C-Reactive Protein 0.90 mg/dL (0.00-1.30) 10/07/21 13:52 Total Protein 8.9 g/dL (6.3-8.2) H 10/06/21 18:17 Albumin 4.7 g/dL (3.9-5) 10/06/21 18:17 Albumin/Globulin Ratio 1.1 % 10/06/21 18:17 Lipase 76 units/L (13-60) H 10/06/21 18:17 Procalcitonin 0.16 ng/mL (<0.15) 10/07/21 13:52 Urine Color Straw (Yellow) 10/06/21 19:19 Urine Turbidity Clear (Clear) 10/06/21 19:19 Urine pH 5.0 (5.0-7.0) 10/06/21 19:19 Ur Specific [place] 1.025 (1.003-1.030) 10/06/21 19:19 Urine Protein <15 mg/dl mg/dL (Negative) 10/06/21 19:19 Urine Glucose (UA) >=500 mg/dL (Negative) 10/06/21 19:19 Urine Ketones 80 mg/dL (Negative) 10/06/21 19:19 Urine Blood Neg (Negative) 10/06/21 19:19 Urine Nitrite Neg (Negative) 10/06/21 19:19 Urine Bilirubin Neg (Negative) 10/06/21 19:19 Urine Urobilinogen < 2.0 mg/dL (<2.0) 10/06/21 19:19 Ur Leukocyte Esterase Neg (Negative) 10/06/21 19:19 Urine WBC (Auto) 1.0 /HPF (0.0-6.0) 10/06/21 19:19 Urine RBC (Auto) < 1.0 /HPF (0.0-6.0) 10/06/21 19:19 Hyaline Casts 1 /LPF 10/06/21 19:19 Urine Mucus Few /HPF 10/06/21 19:19 Urine Opiates Screen Negative 10/06/21 19:19 Urine Methadone Screen Negative 10/06/21 19:19 Ur Barbiturates Screen Negative 10/06/21 19:19 Ur Phencyclidine Scrn Negative 10/06/21 19:19 Ur Amphetamines Screen Negative 10/06/21 19:19 U Benzodiazepines Scrn Negative 10/06/21 19:19 Urine Cocaine Screen Negative 10/06/21 19:19 U Marijuana (THC) Screen Negative 10/06/21 19:19 Drugs of Abuse Note Disclamer 10/06/21 19:19 Coronavirus (PCR) Positive (Negative) A 10/07/21 09:13 Microbiology: Microbiology 10/06/21 19:44 Peripheral/Venous Blood Culture - Preliminary NO GROWTH AFTER 48 HOURS 10/06/21 19:44 Peripheral/Venous Blood Culture - Preliminary NO GROWTH AFTER 48 HOURS Ocampo/IV: Voiding Method Incontinent Active Medications - Current Medications Current Medications: Generic Name Dose Route Start Last Admin Trade Name Freq PRN Reason Stop Dose Admin Acetaminophen 650 mg 10/06/21 22:56 Acetaminophen 325 Mg Tab PO Q6H PRN Pain MILD(1-3)/Fever >100.5/STEINER Dextrose 0 ml 10/06/21 23:47 Dextrose 10% *Hypoglycemia IV PRN PRN Hypoglycemia Protocol Docusate Sodium 100 mg 10/07/21 10:00 10/09/21 09:09 Docusate Sodium 100 Mg Cap PO 100 mg BID CARMEN Administration Famotidine 20 mg 10/07/21 10:00 10/09/21 09:09 Famotidine 20 Mg Tab PO 20 mg BID CARMEN Administration Haloperidol Lactate 5 mg 10/07/21 12:20 Haloperidol Lactate 5 Mg/1 Ml Inj IV Q1H PRN Unrespon. to mult. doses BZD's Heparin Sodium (Porcine) 5,000 unit 10/07/21 14:00 10/09/21 05:24 Heparin 5,000 Unit/1 Ml Vial SUB-Q 5,000 unit Q8HR CARMEN Administration Dextrose 1,000 mls @ 75 mls/hr 10/08/21 09:00 10/09/21 02:43 D5w IV 10/09/21 22:19 75 mls/hr DIRECT CARMEN Administration Insulin Glargine 20 units 10/08/21 22:00 10/08/21 22:22 Insulin Glargine 100 Units/Ml SUB-Q 20 units QHS CARMEN Administration Insulin Human Lispro 0 unit 10/08/21 11:30 10/09/21 07:30 Insulin Lispro 100 Unit/Ml SUB-Q 4 unit ACHS CARMEN Administration Protocol Lorazepam 2 mg 10/07/21 12:20 10/07/21 14:56 Lorazepam 2 Mg/Ml Vial IV 2 mg Q1H PRN Administration CIWA-Ar 8-15 Lorazepam 4 mg 10/07/21 12:20 Lorazepam 2 Mg/Ml Vial IV Q1H PRN CIWA-Ar 16-25 Lorazepam 4 mg 10/07/21 12:20 Lorazepam 2 Mg/Ml Vial IV Q15MIN PRN CIWA-Ar >25 Morphine Sulfate 2 mg 10/06/21 22:56 Morphine 2 Mg/1 Ml Inj IV Q4H PRN Pain, Moderate (4-6) Ondansetron HCl 4 mg 10/06/21 22:56 Ondansetron 4 Mg/2 Ml Inj IV Q8H PRN Nausea And Vomiting Senna 8.6 mg 10/07/21 10:00 10/09/21 09:09 Sennosides 8.6 Mg Tab PO 8.6 mg Q12HR CARMEN Administration Sodium Chloride 10 ml 10/07/21 10:00 10/09/21 09:11 Sodium Chloride 0.9% 10 Ml Flush Syringe IV 10 ml BID CARMEN Administration Sodium Chloride 10 ml 10/06/21 22:56 Sodium Chloride 0.9% 10 Ml Flush Syringe IV PRN PRN LINE FLUSH Nutrition/Malnutrition Assess - Dietary Evaluation Nutrition/Malnutrition Findings: Nutrition Notes Start: 10/07/21 15:34 Freq: Status: Active Protocol: Document 10/07/21 15:34 KATIANA (Rec: 10/07/21 15:54 KATIANA [id number]) Nutrition Notes 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 Current Diet NPO (since 10/06 22:57). Labs/Tests 10/07: Na 162, Cl 122.5, BUN 43, Glu 142, Phos 0.6, Mg 2.4. Pertinent Medications 10/07: Insulin, others nutritionally unremarkable. Height 5 ft 11 in Weight 63.5 kg [place] Body Weight (kg) 78.18 BMI 19.5 Intake Prior to Admission Good Weight change and time frame Pt states being unsure if loss body weight ADMITTING OFFICE ESCORT. Weight Status Appropriate Subjective/Other Information RD consult for risk of malnutrition assessment, and nutrition education on new onset diabetes. Pt currently on NPO. Pt has missing teeth, according to Physical Assessment History notes. Pt shows no signs of concern for risk of malnutrition at the time, according to Physical Assessment History notes. Pt still on critical conditions, not a candidate for Nutrition Education at the time, will assess feasibility on F/U. Percent of energy/protein needs met: Pt currently on NPO. Burn Absent Trauma Absent GI Symptoms None Difficulty In Chewing Food Allergy No Skin Integrity/Comment Clear, warm, dry. Current % PO Other Minimum of two criteria No Is patient on ventilator? No Is Patient Ambulatory and/or Out of Bed Yes REE-([place]-ambulatory/OOB) [ 2023.269 [id number]] Calculation Used for Recommendations [facility] Additional Notes Protein: 0.8-1 g/Kg; 51-64 g/ day. Fluids: 1 ml/Kcal, or as per MD. Nutrition Intervention Follow-Up By: 10/14/21 Additional Comments Nutrition education will be provided on F/U, if feasible. When pertinent, monitor food tolerance, %PO intake of meals , and BM.
--- NOTE | 2021-10-09 10:54 | Progress Note ---
Assessment and Plan Cultures: Blood culture no growth so far COVID-19 PCR positive A/P: 41-year-old man past medical history necrotizing pancreatitis, splenectomy, pancreatectomy now with: #COVID-19: With bilateral pneumonia. O2 sats of 91% on room air. #DKA: Out of ICU, now on the floor. 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 CT with postop changes. #Acute encephalopathy: Likely secondary to DKA #Leukocytosis: Likely secondary to DKA, possibly secondary to infection. Recs: -If he becomes hypoxic, would start dexamethasone. Patient would be candidate for Remdesivir if requiring supplemental oxygen. -Stopped antibiotics in the setting of normal procalcitonin, leukocytosis likely secondary to DKA. Thank you for the consult, we will sign off. Please call with questions. Clara Durham MD [facility] ([facility]) O: [phone] F: [phone] Subjective Date of service: 10/09/21 Principal diagnosis: DKA; TICO; IVVD; Sepsis syndrome; AMS; Pneumonia Interval history: Afebrile, improving white count. Imaging personally viewed: Head CT: No acute abnormalities Objective - Exam Narrative Exam: Physical Exam: Constitutional: Altered Head, Ears, Nose: Normocephalic, atraumatic. External ears, nose normal Eyes: Conjunctivae/corneas clear. No icterus. No ptosis. Neck: Supple, no meningeal signs Oral: dentition fair, no thrush Cardiovascular: S1, S2 normal. Respiratory: Good air entry, clear to auscultation bilaterally GI: Soft, non-tender; bowel sounds normal. No peritoneal signs. Musculoskeletal: No pedal edema, no cyanosis. Skin: No rash or abscess Hem/Lymphatic: No palpable cervical or supraclavicular nodes. No lymphangitis Psych: Altered Neurological: Altered - Constitutional Vitals: Vital Signs Temp Pulse Resp BP Pulse Ox 98.4 F 87 20 112/78 95 10/09/21 05:37 10/09/21 05:37 10/09/21 05:37 10/09/21 05:37 10/09/21 05:37 Temperature -Last 24 Hours Temperature 98.4 F Temperature 98.1 F Temperature 97.5 F - Labs CBC & Chem 7: 10/09/21 05:38 10/09/21 05:38 Labs: Abnormal lab results 10/08/21 10/08/21 10/08/21 Range/Units 12:22 15:47 17:40 WBC (4.5-11.0) K/mm3 MCHC (32-34) % Sodium 154 H (137-145) mmol/L Potassium 3.4 L (3.6-5.0) mmol/L Chloride 114.4 H (98-107) mmol/L Creatinine (0.8-1.3) mg/dL Glucose 185 H (75-100) mg/dL POC Glucose 147 H 197 H (70-105) mg/dL Calcium 8.0 L (8.4-10.2) mg/dL Phosphorus (2.5-4.5) mg/dL 10/08/21 10/09/21 10/09/21 Range/Units 22:02 05:38 05:38 WBC 13.7 H (4.5-11.0) K/mm3 MCHC 31 L (32-34) % Sodium (137-145) mmol/L Potassium 3.5 L (3.6-5.0) mmol/L Chloride (98-107) mmol/L Creatinine 0.5 L (0.8-1.3) mg/dL Glucose 277 H (75-100) mg/dL POC Glucose 228 H (70-105) mg/dL Calcium 7.4 L (8.4-10.2) mg/dL Phosphorus 2.20 L (2.5-4.5) mg/dL 10/09/21 Range/Units 07:39 WBC (4.5-11.0) K/mm3 MCHC (32-34) % Sodium (137-145) mmol/L Potassium (3.6-5.0) mmol/L Chloride (98-107) mmol/L Creatinine (0.8-1.3) mg/dL Glucose (75-100) mg/dL POC Glucose 277 H (70-105) mg/dL Calcium (8.4-10.2) mg/dL Phosphorus (2.5-4.5) mg/dL
[2021-10-09] MEDS: ASPIRIN 81 MG TAB CHEW PO SCH (13:32)
--- NOTE | 2021-10-09 19:11 | Progress Note ---
Assessment and Plan 41-year-old male with known history of necrotizing pancreatitis, splenectomy, pancreatectomy presenting to the emergency room today with nausea and vomiting, cough and changes in mental status with generalized weakness. Most of the history was gotten from the ER staff as patient is altered. Family members also not available at that time. Blood glucose was 1094. Work-up in the emergency room lab reveals leukocytosis of 22.6, hemoglobin of 19.3 and hematocrit of 67.1. Blood glucose was 1094, potassium of 5.6 Patient has been started on empiric IV antibiotics. He is also placed on insulin drip and IV fluid for DKA. Patients Cornavirus PCR positive. Infectious disease is consulted. Thir recommendation is would start on dexamethasone and REMdesivir if Patient needs O2 supplementation. Patients DKA improving. Anion gap closing. Patient transfered to medical floor. Patient alert, awake and weak. Patient is on room air. O2 saturation 97%. No acute respiratory distress. Patient afebrile. Has leukocytosis. Blood pressure 112/78, pulse 83, Respirations 16 Obtaining ABGs Chest xray 10/06/21 reported no acute findings. CT of the chest done on 10/06/21reveals patchy groundglass opacities in lung bases likely representing infectious/inflammatory etiology. Patient presently on S/C Heparin and Famotidine. - Patient Problems (1) Community acquired pneumonia Current Visit: Yes Status: Acute Plan to address problem: Patient was on cefepime, vancomycin and Zithromax. (2) Diabetic ketoacidosis Current Visit: Yes Status: Acute Plan to address problem: Improved. Patients recent Blood sugar 140, Anion gap 13. Management as per Primary care. (3) Acute metabolic encephalopathy Current Visit: Yes Status: Acute Plan to address problem: Management as per primary care. (4) Sepsis Current Visit: Yes Status: Acute Plan to address problem: Patient was on cefepime, vancomycin and Zithromax. (5) Coronavirus infection Current Visit: Yes Status: Acute Plan to address problem: Management as per infectious diseases. Subjective Date of service: 10/09/21 Principal diagnosis: DKA; TICO; IVVD; Sepsis syndrome; AMS; Pneumonia Interval history: 41-year-old male with known history of necrotizing pancreatitis, splenectomy, pancreatectomy presenting to the emergency room today with nausea and vomiting, cough and changes in mental status with generalized weakness. Most of the history was gotten from the ER staff as patient is altered. Family members also not available at that time. Blood glucose was 1094. Work-up in the emergency room lab reveals leukocytosis of 22.6, hemoglobin of 19.3 and hematocrit of 67.1. Blood glucose was 1094, potassium of 5.6 Patient has been started on empiric IV antibiotics. He is also placed on insulin drip and IV fluid for DKA. Patients Cornavirus PCR positive. Infectious disease is consulted. Thir recommendation is would start on dexamethasone and REMdesivir if Patient needs O2 supplementation. Patients DKA improving. Anion gap closing. Patient transfered to medical floor. Patient alert, awake and weak. Patient is on room air. O2 saturation 97%. No acute respiratory distress. Patient afebrile. Has leukocytosis. Blood pressure 112/78, pulse 83, Respirations 16 Chest xray 10/06/21 reported no acute findings. CT of the chest done on 10/06/21reveals patchy groundglass opacities in lung bases likely representing infectious/inflammatory etiology. Obtaining ABGs Patient presently on S/C Heparin and Famotidine. Objective Vital Signs - 12hr 10/09/21 10/09/21 10:00 12:50 Temperature 97.9 F Pulse Rate 80 Respiratory 18 Rate Blood Pressure 120/79 O2 Sat by Pulse 97 96 Oximetry Constitutional: no acute distress, alert, other (Resting on room air, weak.) Eyes: non-icteric ENT: oropharynx moist Neck: supple, no lymphadenopathy, no JVD Effort: normal Ascultation: Bilateral: diminished breath sounds Percussion: Bilateral: not dull Cardiovascular: regular rate and rhythm Gastrointestinal: normoactive bowel sounds Integumentary: normal Extremities: no cyanosis, no edema, pulses normal, no ischemia or petechiae Neurologic: non-focal exam (grossly), pupils equal and round, CN II-XII normal, other (somnolent) Psychiatric: other (somnolent; flat affect) CBC and BMP: 10/09/21 05:38 10/09/21 05:38 ABG, PT/INR, D-dimer: PT/INR, D-dimer D-Dimer 831.91 ng/mlDDU (0-234) H 10/07/21 13:52 Abnormal lab findings: Abnormal Labs 02/09/2610/06/21 10/06/21 18:17 18:17 18:17 WBC 22.6 H RBC 6.57 H Hgb 19.3 H Hct 67.1 H* MCV 102 H MCHC 29 L RDW 15.6 H Seg Neuts % (Manual) 78.0 H Lymphocytes % (Manual) 1.0 L Monocytes % (Manual) Seg Neutrophils # Man 17.6 H Lymphocytes # (Manual) 0.2 L Monocytes # (Manual) 1.4 H D-Dimer VBG pH Sodium 136 L Potassium 5.6 H Chloride 78.5 L Carbon Dioxide 11 L BUN 76 H Creatinine 2.3 H Glucose 1094 H* POC Glucose Hemoglobin A1c Lactic Acid 5.10 H* Calcium 11.2 H Phosphorus Magnesium Ferritin Alkaline Phosphatase 132 H Lactate Dehydrogenase Total Protein 8.9 H Lipase 76 H Coronavirus (PCR) 10/06/21 10/06/21 10/06/21 20:40 20:40 21:51 WBC RBC Hgb Hct MCV MCHC RDW Seg Neuts % (Manual) Lymphocytes % (Manual) Monocytes % (Manual) Seg Neutrophils # Man Lymphocytes # (Manual) Monocytes # (Manual) D-Dimer VBG pH 7.241 L Sodium Potassium Chloride Carbon Dioxide BUN Creatinine Glucose POC Glucose Hemoglobin A1c Lactic Acid 4.50 H* Calcium Phosphorus 7.70 H Magnesium 4.00 H Ferritin Alkaline Phosphatase Lactate Dehydrogenase Total Protein Lipase Coronavirus (PCR) 10/06/21 10/06/21 10/07/21 23:23 23:23 00:07 WBC RBC Hgb Hct MCV MCHC RDW Seg Neuts % (Manual) Lymphocytes % (Manual) Monocytes % (Manual) Seg Neutrophils # Man Lymphocytes # (Manual) Monocytes # (Manual) D-Dimer VBG pH Sodium 148 H D Potassium 5.6 H Chloride Carbon Dioxide 8 L* BUN 72 H Creatinine 1.7 H Glucose 779 H* POC Glucose > 600 H Hemoglobin A1c Lactic Acid Calcium Phosphorus 4.80 H D Magnesium 3.20 H Ferritin Alkaline Phosphatase Lactate Dehydrogenase Total Protein Lipase Coronavirus (PCR) 10/07/21 10/07/21 10/07/21 01:32 02:11 03:21 WBC RBC Hgb Hct MCV MCHC RDW Seg Neuts % (Manual) Lymphocytes % (Manual) Monocytes % (Manual) Seg Neutrophils # Man Lymphocytes # (Manual) Monocytes # (Manual) D-Dimer VBG pH Sodium Potassium Chloride Carbon Dioxide BUN Creatinine Glucose POC Glucose 534 H 537 H 424 H Hemoglobin A1c Lactic Acid Calcium Phosphorus Magnesium Ferritin Alkaline Phosphatase Lactate Dehydrogenase Total Protein Lipase Coronavirus (PCR) 10/07/21 10/07/21 10/07/21 04:30 05:05 05:05 WBC 23.2 H RBC 6.02 H Hgb 17.7 H Hct 55.7 H D MCV MCHC RDW Seg Neuts % (Manual) 80.0 H Lymphocytes % (Manual) 3.0 L Monocytes % (Manual) 8.0 H Seg Neutrophils # Man 18.6 H Lymphocytes # (Manual) 0.7 L Monocytes # (Manual) 1.9 H D-Dimer VBG pH Sodium 159 H D Potassium Chloride 117.4 H Carbon Dioxide 17 L D BUN 62 H Creatinine 1.5 H Glucose 374 H POC Glucose 378 H Hemoglobin A1c Lactic Acid Calcium Phosphorus Magnesium Ferritin Alkaline Phosphatase Lactate Dehydrogenase Total Protein Lipase Coronavirus (PCR) 10/07/21 10/07/21 10/07/21 05:28 06:30 08:01 WBC RBC Hgb Hct MCV MCHC RDW Seg Neuts % (Manual) Lymphocytes % (Manual) Monocytes % (Manual) Seg Neutrophils # Man Lymphocytes # (Manual) Monocytes # (Manual) D-Dimer VBG pH Sodium Potassium Chloride Carbon Dioxide BUN Creatinine Glucose POC Glucose 315 H 236 H 256 H Hemoglobin A1c Lactic Acid Calcium Phosphorus Magnesium Ferritin Alkaline Phosphatase Lactate Dehydrogenase Total Protein Lipase Coronavirus (PCR) 10/07/21 10/07/21 10/07/21 09:01 09:13 10:04 WBC RBC Hgb Hct MCV MCHC RDW Seg Neuts % (Manual) Lymphocytes % (Manual) Monocytes % (Manual) Seg Neutrophils # Man Lymphocytes # (Manual) Monocytes # (Manual) D-Dimer VBG pH Sodium Potassium Chloride Carbon Dioxide BUN Creatinine Glucose POC Glucose 276 H 229 H Hemoglobin A1c Lactic Acid Calcium Phosphorus Magnesium Ferritin Alkaline Phosphatase Lactate Dehydrogenase Total Protein Lipase Coronavirus (PCR) Positive A 10/07/21 10/07/21 10/07/21 11:38 13:52 13:52 WBC RBC Hgb Hct MCV MCHC RDW Seg Neuts % (Manual) Lymphocytes % (Manual) Monocytes % (Manual) Seg Neutrophils # Man Lymphocytes # (Manual) Monocytes # (Manual) D-Dimer 831.91 H VBG pH Sodium 162 H* Potassium Chloride 122.5 H Carbon Dioxide BUN 43 H Creatinine Glucose 142 H POC Glucose 197 H Hemoglobin A1c Lactic Acid Calcium Phosphorus 0.60 L* D Magnesium 2.40 H Ferritin Alkaline Phosphatase Lactate Dehydrogenase 221 H Total Protein Lipase Coronavirus (PCR) 10/07/21 10/07/21 10/07/21 13:52 14:30 14:59 WBC RBC Hgb Hct MCV MCHC RDW Seg Neuts % (Manual) Lymphocytes % (Manual) Monocytes % (Manual) Seg Neutrophils # Man Lymphocytes # (Manual) Monocytes # (Manual) D-Dimer VBG pH Sodium Potassium Chloride Carbon Dioxide BUN Creatinine Glucose POC Glucose 139 H 162 H Hemoglobin A1c Lactic Acid Calcium Phosphorus Magnesium Ferritin 1788.0 H Alkaline Phosphatase Lactate Dehydrogenase Total Protein Lipase Coronavirus (PCR) 10/07/21 10/07/21 10/07/21 18:03 18:05 19:47 WBC RBC Hgb Hct MCV MCHC RDW Seg Neuts % (Manual) Lymphocytes % (Manual) Monocytes % (Manual) Seg Neutrophils # Man Lymphocytes # (Manual) Monocytes # (Manual) D-Dimer VBG pH Sodium 159 H Potassium Chloride 118.9 H Carbon Dioxide BUN 39 H Creatinine Glucose 275 H POC Glucose 242 H 245 H Hemoglobin A1c Lactic Acid Calcium Phosphorus Magnesium 2.50 H Ferritin Alkaline Phosphatase Lactate Dehydrogenase Total Protein Lipase Coronavirus (PCR) 10/07/21 10/07/21 10/08/21 21:58 23:18 00:14 WBC RBC Hgb Hct MCV MCHC RDW Seg Neuts % (Manual) Lymphocytes % (Manual) Monocytes % (Manual) Seg Neutrophils # Man Lymphocytes # (Manual) Monocytes # (Manual) D-Dimer VBG pH Sodium Potassium Chloride Carbon Dioxide BUN Creatinine Glucose POC Glucose 260 H 209 H 181 H Hemoglobin A1c Lactic Acid Calcium Phosphorus Magnesium Ferritin Alkaline Phosphatase Lactate Dehydrogenase Total Protein Lipase Coronavirus (PCR) 10/08/21 10/08/21 10/08/21 00:59 01:18 02:16 WBC RBC Hgb Hct MCV MCHC RDW Seg Neuts % (Manual) Lymphocytes % (Manual) Monocytes % (Manual) Seg Neutrophils # Man Lymphocytes # (Manual) Monocytes # (Manual) D-Dimer VBG pH Sodium 157 H Potassium 3.4 L D Chloride 118.0 H Carbon Dioxide BUN 28 H Creatinine Glucose 163 H POC Glucose 139 H 116 H Hemoglobin A1c Lactic Acid Calcium 8.3 L Phosphorus 2.20 L Magnesium Ferritin Alkaline Phosphatase Lactate Dehydrogenase Total Protein Lipase Coronavirus (PCR) 10/08/21 10/08/21 10/08/21 03:13 04:02 05:01 WBC RBC Hgb Hct MCV MCHC RDW Seg Neuts % (Manual) Lymphocytes % (Manual) Monocytes % (Manual) Seg Neutrophils # Man Lymphocytes # (Manual) Monocytes # (Manual) D-Dimer VBG pH Sodium Potassium Chloride Carbon Dioxide BUN Creatinine Glucose POC Glucose 112 H 118 H 139 H Hemoglobin A1c Lactic Acid Calcium Phosphorus Magnesium Ferritin Alkaline Phosphatase Lactate Dehydrogenase Total Protein Lipase Coronavirus (PCR) 10/08/21 10/08/21 10/08/21 05:42 05:42 05:42 WBC 19.3 H RBC 5.25 H Hgb 15.6 H Hct 48.5 H D MCV MCHC RDW Seg Neuts % (Manual) Lymphocytes % (Manual) Monocytes % (Manual) Seg Neutrophils # Man Lymphocytes # (Manual) Monocytes # (Manual) D-Dimer VBG pH Sodium 158 H Potassium Chloride 116.9 H Carbon Dioxide BUN 22 H Creatinine Glucose 135 H POC Glucose Hemoglobin A1c 16.5 H Lactic Acid Calcium Phosphorus 2.10 L Magnesium Ferritin Alkaline Phosphatase Lactate Dehydrogenase Total Protein Lipase Coronavirus (PCR) 10/08/21 10/08/21 10/08/21 06:20 08:47 10:02 WBC RBC Hgb Hct MCV MCHC RDW Seg Neuts % (Manual) Lymphocytes % (Manual) Monocytes % (Manual) Seg Neutrophils # Man Lymphocytes # (Manual) Monocytes # (Manual) D-Dimer VBG pH Sodium Potassium Chloride Carbon Dioxide BUN Creatinine Glucose POC Glucose 133 H 136 H 182 H Hemoglobin A1c Lactic Acid Calcium Phosphorus Magnesium Ferritin Alkaline Phosphatase Lactate Dehydrogenase Total Protein Lipase Coronavirus (PCR) 10/08/21 10/08/21 10/08/21 12:22 15:47 17:40 WBC RBC Hgb Hct MCV MCHC RDW Seg Neuts % (Manual) Lymphocytes % (Manual) Monocytes % (Manual) Seg Neutrophils # Man Lymphocytes # (Manual) Monocytes # (Manual) D-Dimer VBG pH Sodium 154 H Potassium 3.4 L Chloride 114.4 H Carbon Dioxide BUN Creatinine Glucose 185 H POC Glucose 147 H 197 H Hemoglobin A1c Lactic Acid Calcium 8.0 L Phosphorus Magnesium Ferritin Alkaline Phosphatase Lactate Dehydrogenase Total Protein Lipase Coronavirus (PCR) 10/08/21 10/09/21 10/09/21 22:02 05:38 05:38 WBC 13.7 H RBC Hgb Hct MCV MCHC 31 L RDW Seg Neuts % (Manual) Lymphocytes % (Manual) Monocytes % (Manual) Seg Neutrophils # Man Lymphocytes # (Manual) Monocytes # (Manual) D-Dimer VBG pH Sodium Potassium 3.5 L Chloride Carbon Dioxide BUN Creatinine 0.5 L Glucose 277 H POC Glucose 228 H Hemoglobin A1c Lactic Acid Calcium 7.4 L Phosphorus 2.20 L Magnesium Ferritin Alkaline Phosphatase Lactate Dehydrogenase Total Protein Lipase Coronavirus (PCR) 10/09/21 10/09/21 10/09/21 07:39 11:17 16:31 WBC RBC Hgb Hct MCV MCHC RDW Seg Neuts % (Manual) Lymphocytes % (Manual) Monocytes % (Manual) Seg Neutrophils # Man Lymphocytes # (Manual) Monocytes # (Manual) D-Dimer VBG pH Sodium Potassium Chloride Carbon Dioxide BUN Creatinine Glucose POC Glucose 277 H 320 H 176 H Hemoglobin A1c Lactic Acid Calcium Phosphorus Magnesium Ferritin Alkaline Phosphatase Lactate Dehydrogenase Total Protein Lipase Coronavirus (PCR) Chest x-ray: report reviewed, image reviewed Additional Studies: CT CHEST, ABDOMEN, AND PELVIS WITHOUT CONTRAST 10/06/21 INDICATION / CLINICAL INFORMATION: sepsis vomiting. TECHNIQUE: Axial CT images were obtained through the chest, abdomen, and pelvis without contrast. All CT scans at this location are performed using CT dose reduction for Rodati by means of automated exposure control. COMPARISON: None available. FINDINGS: HEART: No significant abnormality. CORONARY ARTERY CALCIFICATION: None. THORACIC AORTA: No significant abnormality. MEDIASTINUM / MORRIS: No significant abnormality. PLEURA: No pleural effusion. No pneumothorax. LUNGS: Patchy lower lobe and peripheral predominant groundglass opacities. ADDITIONAL CHEST FINDINGS: Esophagus is mildly patulous and contains ingested material.. LIVER: No significant abnormality. GALLBLADDER: Not seen, likely surgically absent. BILE DUCTS: No significant abnormality. PANCREAS: Postsurgical changes from partial resection of the pancreas SPLEEN: Surgically absent. ADRENALS: No significant abnormality. RIGHT KIDNEY / URETER: Hypodensity at lower pole right kidney likely represents a cyst. LEFT KIDNEY / URETER: No significant abnormality. STOMACH and SMALL BOWEL: No significant abnormality. COLON: Moderate colonic stool burden. No acute inflammation. APPENDIX: No significant abnormality. PERITONEUM: No free fluid. No free air. No fluid collection. LYMPH NODES: No significant adenopathy. AORTA / ARTERIES: No significant abnormality. IVC / VEINS: No significant abnormality. URINARY BLADDER: No significant abnormality. REPRODUCTIVE ORGANS: No significant abnormality. ADDITIONAL FINDINGS: None. SKELETAL SYSTEM: No aggressive osseous lesion. Scoliosis of the thoracic and lumbar spine. Small benign-appearing sclerotic lesion in the left femoral head. IMPRESSION: 1. Patchy groundglass opacities in the lung bases likely represent infectious/inflammatory etiology. 2. Postsurgical changes in the abdomen without acute abnormality identified. 3. Moderate colonic stool burden which can be seen with constipation in the proper clinical setting. XR chest 1V ap 10/06/21 INDICATION / CLINICAL INFORMATION: Productive cough generalized malaise. COMPARISON: None available. FINDINGS: SUPPORT DEVICES: None. HEART /PULMONARY VASCULATURE: No significant abnormality. LUNGS / PLEURA: No significant pulmonary or pleural abnormality. No pneumothorax. IMPRESSION: 1. No acute findings. Allied health notes reviewed: nursing
[2021-10-09] MEDS: INSULIN GLARGINE 100 UNITS/ML SUB-Q SCH (22:09)
[2021-10-10] MEDS: HEPARIN 5,000 UNIT/1 ML VIAL SUB-Q SCH ×3 (05:46→21:26)
--- NOTE | 2021-10-10 09:41 | Discharge Summary ---
Providers - Providers Date of Admission: 10/06/21 22:56 Date of discharge: 10/11/21 Attending physician: KIERAN MOTTA 10/06/21 22:09 Consult to Physician [CONS] Stat Comment: Consulting Provider: CLIFF HAYS Physician Instructions: Reason For Exam: critical care 10/06/21 22:56 Consult to Dietitian/Nutrition [CONS] Routine Physician Instructions: Reason For Exam: Reason for Consult: Diet education Consult to Dietitian/Nutrition [CONS] Routine Physician Instructions: Reason For Exam: DKA Reason for Consult: Nutrition Recommendations Reason for Consult: Diet education 10/07/21 13:36 Consult to Physician [CONS] Routine Comment: bharath/ michelle Consulting Provider: FAISAL GONZALEZ Physician Instructions: Reason For Exam: Sepsis 10/08/21 11:13 Speech Therapy Evaluation and Treat [CONS] Routine Reason For Exam: Swallow Eval 10/08/21 15:20 Consult to Physician [CONS] Routine Comment: Consulting Provider: NOEMY ARIAS Physician Instructions: Reason For Exam: AMS 10/09/21 10:33 Physical Therapy Evaluation and Treat [CONS] Routine Comment: Reason For Exam: weakness Primary care physician: DIRECTOR STYLE Hospitalization Reason for admission: nausea and vomiting, cough, altered mental status and weakness. Condition: Critical Hospital course: 41-year-old man past medical history necrotizing pancreatitis, splenectomy, pancreatectomy presented to hospital complaining of nausea and vomiting, cough, altered mental status and weakness. The patient was admitted with diagnosis of DKA, sepsis, community-acquired pneumonia, COVID-19 pneumonia, acute kidney injury secondary to ATN from sepsis, hypernatremia and toxic metabolic encephalopathy. The patient presented with high blood glucose and positive ketones in the urine. Patient's hemoglobin A1c was 16.5. Patient was treated with IV insulin drip with later the anion gap closing. Patient was transitioned to subcutaneous insulin. The patient presented with leukocytosis, tachycardia, elevated lactic, most likely due to DKA/sepsis. The patient present etiology of sepsis was felt to be secondary to pneumonia. CT of the chest reveals patchy groundglass opacities in lung bases likely representing infectious/inflammatory etiology. Covid PCR was found to be positive. ID was consulted and d iscontinued antibiotics due to normal procalcitonin. The patient also had acute kidney injury likely secondary to ATN and hyponatremia. Patient had resolution with IV fluid hydration. Chest x-ray showed no acute findings and patient remains hypoxic. Therefore, ID felt that there was no need for acute Covid treatment. The patient has significant improvement in the BG with the addition of Lantus 20 units at bedtime. Disposition: 30 STILL A PATIENT Final Discharge Diagnosis (Prints w/discharge instructions): DKA, sepsis, community-acquired pneumonia, COVID-19 pneumonia, acute kidney injury secondary to ATN from sepsis, hypernatremia and toxic metabolic encephalopathy. Core Measure Documentation - Palliative Care Palliative Care/ Comfort Measures: Not Applicable - Core Measures Any of the following diagnoses?: none Exam - Constitutional Vitals: Temp Pulse Resp BP Pulse Ox 97.3 F L 74 16 120/78 95 10/10/21 04:29 10/10/21 04:29 10/10/21 04:29 10/10/21 04:29 10/10/21 04:29 General appearance: Present: no acute distress, well-nourished - EENT Eyes: Present: PERRL ENT: hearing intact, clear oral mucosa - Neck Neck: Present: supple, normal ROM - Respiratory Respiratory effort: normal Respiratory: bilateral: CTA - Cardiovascular Heart Sounds: Present: S1 & S2. Absent: rub, click - Extremities Extremities: pulses symmetrical, No edema Peripheral Pulses: within normal limits - Abdominal General gastrointestinal: Present: soft, non-tender, non-distended, normal bowel sounds Male genitourinary: Present: normal - Integumentary Integumentary: Present: clear, warm, dry - Musculoskeletal Musculoskeletal: gait normal, strength equal bilaterally - Psychiatric Psychiatric: appropriate mood/affect, intact judgment & insight - Neurologic Neurologic: CNII-XII intact, moves all extremities Plan Activity: advance as tolerated Weight Bearing Status: Weight Bear as Tolerated Diet: regular, diabetic Follow up with: PRIMARY CAREMD [Primary Care Provider] - 7 Days KHANG RAMIREZ MD [Staff Physician] - 7 Days Prescriptions: Insulin Glargine [Lantus VIAL] 20 units SUB-Q QHS 30 Days units
[2021-10-10] MEDS: INSULIN LISPRO 100 UNIT/ML SUB-Q SCH ×4 (09:42→22:41)
[2021-10-10] MEDS: FAMOTIDINE 20 MG TAB PO SCH ×2 (09:51→21:27)
[2021-10-10] MEDS: ASPIRIN 81 MG TAB CHEW PO SCH (09:51)
[2021-10-10] MEDS: SENNOSIDES 8.6 MG TAB PO SCH ×2 (09:53→22:11)
[2021-10-10] MEDS: DOCUSATE SODIUM 100 MG CAP PO SCH ×2 (09:53→21:26)
--- NOTE | 2021-10-10 14:07 | Progress Note ---
Assessment and Plan Diabetic ketoacidosis Acute kidney injury Intravascular volume depletion Sepsis syndrome Pneumonia Acute possibly on chronic encephalopathy Leukocytosis Hypokalemia at presentation Metabolic acidosis Lactic acidosis - advance diet per [employer] - discharge planning ok pulmonary-sharp - continue care as below otherwise; - aspiration precautions - prn supplemental oxygen to keep O2 sats > 90% - prn ronchodilators (SHAHRZAD) with pulm hygiene per RT - avoid nephrotoxins, renally dose all medications - continue mobility protocols to prevent pressure ulcers - PT/OT as tolerated - prn analgesia per pain score - Wound care per RN/WCT - continue accuchecks with glycemic control per SSI for target blood glucose < 180 mg/dL - tobacco abstinence counseled at the bedside - home oxygen evaluation at discharge - GI & VTE prophylaxis - Flu & pneumovax per protocol - continue other care per attending / other consultants ... re-evaluate in am & prn Subjective Date of service: 10/10/21 Principal diagnosis: DKA; TICO; IVVD; Sepsis syndrome; AMS; Pneumonia Interval history: Patient is seen today for: DKA; TICO; IVVD; Sepsis syndrome; AMS; Pneumonia Seen and examined at bedside; 24hour events reviewed; nursing and respiratory care staff consulted; no adverse overnight events reported to me; doing better; denies N/V/F/C Objective Vital Signs - 12hr 10/10/21 10/10/21 10/10/21 04:29 10:00 11:43 Temperature 97.3 F L 98.1 F Pulse Rate 74 72 Respiratory 16 20 Rate Blood Pressure 120/78 103/67 O2 Sat by Pulse 95 98 96 Oximetry Constitutional: no acute distress Eyes: non-icteric ENT: oropharynx moist Neck: supple, no lymphadenopathy, no JVD Effort: normal Ascultation: Bilateral: clear, diminished breath sounds Percussion: Bilateral: not dull Cardiovascular: regular rate and rhythm Gastrointestinal: normoactive bowel sounds, soft, non-tender, non-distended Integumentary: erythema (redness to face), other (post op abdominal scars) Extremities: no cyanosis, no edema, pulses normal, no ischemia or petechiae Neurologic: non-focal exam (grossly), pupils equal and round, CN II-XII normal, other (somnolent) Psychiatric: other (somnolent; flat affect) CBC and BMP: 10/10/21 14:37 10/10/21 14:37 ABG, PT/INR, D-dimer: PT/INR, D-dimer D-Dimer 831.91 ng/mlDDU (0-234) H 10/07/21 13:52 Abnormal lab findings: Abnormal Labs 10/06/21 10/06/21 10/06/21 18:17 18:17 18:17 WBC 22.6 H RBC 6.57 H Hgb 19.3 H Hct 67.1 H* MCV 102 H MCHC 29 L RDW 15.6 H Seg Neuts % (Manual) 78.0 H Lymphocytes % (Manual) 1.0 L Monocytes % (Manual) Seg Neutrophils # Man 17.6 H Lymphocytes # (Manual) 0.2 L Monocytes # (Manual) 1.4 H D-Dimer VBG pH Sodium 136 L Potassium 5.6 H Chloride 78.5 L Carbon Dioxide 11 L BUN 76 H Creatinine 2.3 H Glucose 1094 H* POC Glucose Hemoglobin A1c Lactic Acid 5.10 H* Calcium 11.2 H Phosphorus Magnesium Ferritin Alkaline Phosphatase 132 H Lactate Dehydrogenase Total Protein 8.9 H Lipase 76 H Coronavirus (PCR) 10/06/21 10/06/21 10/06/21 20:40 20:40 21:51 WBC RBC Hgb Hct MCV MCHC RDW Seg Neuts % (Manual) Lymphocytes % (Manual) Monocytes % (Manual) Seg Neutrophils # Man Lymphocytes # (Manual) Monocytes # (Manual) D-Dimer VBG pH 7.241 L Sodium Potassium Chloride Carbon Dioxide BUN Creatinine Glucose POC Glucose Hemoglobin A1c Lactic Acid 4.50 H* Calcium Phosphorus 7.70 H Magnesium 4.00 H Ferritin Alkaline Phosphatase Lactate Dehydrogenase Total Protein Lipase Coronavirus (PCR) 10/06/21 10/06/21 10/07/21 23:23 23:23 00:07 WBC RBC Hgb Hct MCV MCHC RDW Seg Neuts % (Manual) Lymphocytes % (Manual) Monocytes % (Manual) Seg Neutrophils # Man Lymphocytes # (Manual) Monocytes # (Manual) D-Dimer VBG pH Sodium 148 H D Potassium 5.6 H Chloride Carbon Dioxide 8 L* BUN 72 H Creatinine 1.7 H Glucose 779 H* POC Glucose > 600 H Hemoglobin A1c Lactic Acid Calcium Phosphorus 4.80 H D Magnesium 3.20 H Ferritin Alkaline Phosphatase Lactate Dehydrogenase Total Protein Lipase Coronavirus (PCR) 10/07/21 10/07/21 10/07/21 01:32 02:11 03:21 WBC RBC Hgb Hct MCV MCHC RDW Seg Neuts % (Manual) Lymphocytes % (Manual) Monocytes % (Manual) Seg Neutrophils # Man Lymphocytes # (Manual) Monocytes # (Manual) D-Dimer VBG pH Sodium Potassium Chloride Carbon Dioxide BUN Creatinine Glucose POC Glucose 534 H 537 H 424 H Hemoglobin A1c Lactic Acid Calcium Phosphorus Magnesium Ferritin Alkaline Phosphatase Lactate Dehydrogenase Total Protein Lipase Coronavirus (PCR) 10/07/21 10/07/21 10/07/21 04:30 05:05 05:05 WBC 23.2 H RBC 6.02 H Hgb 17.7 H Hct 55.7 H D MCV MCHC RDW Seg Neuts % (Manual) 80.0 H Lymphocytes % (Manual) 3.0 L Monocytes % (Manual) 8.0 H Seg Neutrophils # Man 18.6 H Lymphocytes # (Manual) 0.7 L Monocytes # (Manual) 1.9 H D-Dimer VBG pH Sodium 159 H D Potassium Chloride 117.4 H Carbon Dioxide 17 L D BUN 62 H Creatinine 1.5 H Glucose 374 H POC Glucose 378 H Hemoglobin A1c Lactic Acid Calcium Phosphorus Magnesium Ferritin Alkaline Phosphatase Lactate Dehydrogenase Total Protein Lipase Coronavirus (PCR) 10/07/21 10/07/21 10/07/21 05:28 06:30 08:01 WBC RBC Hgb Hct MCV MCHC RDW Seg Neuts % (Manual) Lymphocytes % (Manual) Monocytes % (Manual) Seg Neutrophils # Man Lymphocytes # (Manual) Monocytes # (Manual) D-Dimer VBG pH Sodium Potassium Chloride Carbon Dioxide BUN Creatinine Glucose POC Glucose 315 H 236 H 256 H Hemoglobin A1c Lactic Acid Calcium Phosphorus Magnesium Ferritin Alkaline Phosphatase Lactate Dehydrogenase Total Protein Lipase Coronavirus (PCR) 10/07/21 10/07/21 10/07/21 09:01 09:13 10:04 WBC RBC Hgb Hct MCV MCHC RDW Seg Neuts % (Manual) Lymphocytes % (Manual) Monocytes % (Manual) Seg Neutrophils # Man Lymphocytes # (Manual) Monocytes # (Manual) D-Dimer VBG pH Sodium Potassium Chloride Carbon Dioxide BUN Creatinine Glucose POC Glucose 276 H 229 H Hemoglobin A1c Lactic Acid Calcium Phosphorus Magnesium Ferritin Alkaline Phosphatase Lactate Dehydrogenase Total Protein Lipase Coronavirus (PCR) Positive A 10/07/21 10/07/21 10/07/21 11:38 13:52 13:52 WBC RBC Hgb Hct MCV MCHC RDW Seg Neuts % (Manual) Lymphocytes % (Manual) Monocytes % (Manual) Seg Neutrophils # Man Lymphocytes # (Manual) Monocytes # (Manual) D-Dimer 831.91 H VBG pH Sodium 162 H* Potassium Chloride 122.5 H Carbon Dioxide BUN 43 H Creatinine Glucose 142 H POC Glucose 197 H Hemoglobin A1c Lactic Acid Calcium Phosphorus 0.60 L* D Magnesium 2.40 H Ferritin Alkaline Phosphatase Lactate Dehydrogenase 221 H Total Protein Lipase Coronavirus (PCR) 10/07/21 10/07/21 10/07/21 13:52 14:30 14:59 WBC RBC Hgb Hct MCV MCHC RDW Seg Neuts % (Manual) Lymphocytes % (Manual) Monocytes % (Manual) Seg Neutrophils # Man Lymphocytes # (Manual) Monocytes # (Manual) D-Dimer VBG pH Sodium Potassium Chloride Carbon Dioxide BUN Creatinine Glucose POC Glucose 139 H 162 H Hemoglobin A1c Lactic Acid Calcium Phosphorus Magnesium Ferritin 1788.0 H Alkaline Phosphatase Lactate Dehydrogenase Total Protein Lipase Coronavirus (PCR) 10/07/21 10/07/21 10/07/21 18:03 18:05 19:47 WBC RBC Hgb Hct MCV MCHC RDW Seg Neuts % (Manual) Lymphocytes % (Manual) Monocytes % (Manual) Seg Neutrophils # Man Lymphocytes # (Manual) Monocytes # (Manual) D-Dimer VBG pH Sodium 159 H Potassium Chloride 118.9 H Carbon Dioxide BUN 39 H Creatinine Glucose 275 H POC Glucose 242 H 245 H Hemoglobin A1c Lactic Acid Calcium Phosphorus Magnesium 2.50 H Ferritin Alkaline Phosphatase Lactate Dehydrogenase Total Protein Lipase Coronavirus (PCR) 10/07/21 10/07/21 10/08/21 21:58 23:18 00:14 WBC RBC Hgb Hct MCV MCHC RDW Seg Neuts % (Manual) Lymphocytes % (Manual) Monocytes % (Manual) Seg Neutrophils # Man Lymphocytes # (Manual) Monocytes # (Manual) D-Dimer VBG pH Sodium Potassium Chloride Carbon Dioxide BUN Creatinine Glucose POC Glucose 260 H 209 H 181 H Hemoglobin A1c Lactic Acid Calcium Phosphorus Magnesium Ferritin Alkaline Phosphatase Lactate Dehydrogenase Total Protein Lipase Coronavirus (PCR) 10/08/21 10/08/21 10/08/21 00:59 01:18 02:16 WBC RBC Hgb Hct MCV MCHC RDW Seg Neuts % (Manual) Lymphocytes % (Manual) Monocytes % (Manual) Seg Neutrophils # Man Lymphocytes # (Manual) Monocytes # (Manual) D-Dimer VBG pH Sodium 157 H Potassium 3.4 L D Chloride 118.0 H Carbon Dioxide BUN 28 H Creatinine Glucose 163 H POC Glucose 139 H 116 H Hemoglobin A1c Lactic Acid Calcium 8.3 L Phosphorus 2.20 L Magnesium Ferritin Alkaline Phosphatase Lactate Dehydrogenase Total Protein Lipase Coronavirus (PCR) 10/08/21 10/08/21 10/08/21 03:13 04:02 05:01 WBC RBC Hgb Hct MCV MCHC RDW Seg Neuts % (Manual) Lymphocytes % (Manual) Monocytes % (Manual) Seg Neutrophils # Man Lymphocytes # (Manual) Monocytes # (Manual) D-Dimer VBG pH Sodium Potassium Chloride Carbon Dioxide BUN Creatinine Glucose POC Glucose 112 H 118 H 139 H Hemoglobin A1c Lactic Acid Calcium Phosphorus Magnesium Ferritin Alkaline Phosphatase Lactate Dehydrogenase Total Protein Lipase Coronavirus (PCR) 10/08/21 10/08/21 10/08/21 05:42 05:42 05:42 WBC 19.3 H RBC 5.25 H Hgb 15.6 H Hct 48.5 H D MCV MCHC RDW Seg Neuts % (Manual) Lymphocytes % (Manual) Monocytes % (Manual) Seg Neutrophils # Man Lymphocytes # (Manual) Monocytes # (Manual) D-Dimer VBG pH Sodium 158 H Potassium Chloride 116.9 H Carbon Dioxide BUN 22 H Creatinine Glucose 135 H POC Glucose Hemoglobin A1c 16.5 H Lactic Acid Calcium Phosphorus 2.10 L Magnesium Ferritin Alkaline Phosphatase Lactate Dehydrogenase Total Protein Lipase Coronavirus (PCR) 10/08/21 10/08/21 10/08/21 06:20 08:47 10:02 WBC RBC Hgb Hct MCV MCHC RDW Seg Neuts % (Manual) Lymphocytes % (Manual) Monocytes % (Manual) Seg Neutrophils # Man Lymphocytes # (Manual) Monocytes # (Manual) D-Dimer VBG pH Sodium Potassium Chloride Carbon Dioxide BUN Creatinine Glucose POC Glucose 133 H 136 H 182 H Hemoglobin A1c Lactic Acid Calcium Phosphorus Magnesium Ferritin Alkaline Phosphatase Lactate Dehydrogenase Total Protein Lipase Coronavirus (PCR) 10/08/21 10/08/21 10/08/21 12:22 15:47 17:40 WBC RBC Hgb Hct MCV MCHC RDW Seg Neuts % (Manual) Lymphocytes % (Manual) Monocytes % (Manual) Seg Neutrophils # Man Lymphocytes # (Manual) Monocytes # (Manual) D-Dimer VBG pH Sodium 154 H Potassium 3.4 L Chloride 114.4 H Carbon Dioxide BUN Creatinine Glucose 185 H POC Glucose 147 H 197 H Hemoglobin A1c Lactic Acid Calcium 8.0 L Phosphorus Magnesium Ferritin Alkaline Phosphatase Lactate Dehydrogenase Total Protein Lipase Coronavirus (PCR) 10/08/21 10/09/21 10/09/21 22:02 05:38 05:38 WBC 13.7 H RBC Hgb Hct MCV MCHC 31 L RDW Seg Neuts % (Manual) Lymphocytes % (Manual) Monocytes % (Manual) Seg Neutrophils # Man Lymphocytes # (Manual) Monocytes # (Manual) D-Dimer VBG pH Sodium Potassium 3.5 L Chloride Carbon Dioxide BUN Creatinine 0.5 L Glucose 277 H POC Glucose 228 H Hemoglobin A1c Lactic Acid Calcium 7.4 L Phosphorus 2.20 L Magnesium Ferritin Alkaline Phosphatase Lactate Dehydrogenase Total Protein Lipase Coronavirus (PCR) 10/09/21 10/09/21 10/09/21 07:39 11:17 16:31 WBC RBC Hgb Hct MCV MCHC RDW Seg Neuts % (Manual) Lymphocytes % (Manual) Monocytes % (Manual) Seg Neutrophils # Man Lymphocytes # (Manual) Monocytes # (Manual) D-Dimer VBG pH Sodium Potassium Chloride Carbon Dioxide BUN Creatinine Glucose POC Glucose 277 H 320 H 176 H Hemoglobin A1c Lactic Acid Calcium Phosphorus Magnesium Ferritin Alkaline Phosphatase Lactate Dehydrogenase Total Protein Lipase Coronavirus (PCR) 10/09/21 10/10/21 10/10/21 21:41 07:50 11:41 WBC RBC Hgb Hct MCV MCHC RDW Seg Neuts % (Manual) Lymphocytes % (Manual) Monocytes % (Manual) Seg Neutrophils # Man Lymphocytes # (Manual) Monocytes # (Manual) D-Dimer VBG pH Sodium Potassium Chloride Carbon Dioxide BUN Creatinine Glucose POC Glucose 140 H 178 H 260 H Hemoglobin A1c Lactic Acid Calcium Phosphorus Magnesium Ferritin Alkaline Phosphatase Lactate Dehydrogenase Total Protein Lipase Coronavirus (PCR) Allied health notes reviewed: nursing
[2021-10-10 15:19] LABS: Basophils # (Auto) 0.1 K/mm3 (0.0-0.1); Eosinophils # (Auto) 0.1 K/mm3 (0.0-0.4); Eosinophils % (Auto) 1.2 % (0.0-4.3); Monocytes # (Auto) 0.7 K/mm3 (0.0-0.8); Monocytes % (Auto) 7.2 % (0.0-7.3)
[2021-10-10 15:30] LABS: Blood Urea Nitrogen 21 mg/dL (9-20); Calcium 9.1 mg/dL (8.4-10.2); Hemolysis Index 5
[2021-10-10 15:40] LABS: BUN/Creatinine Ratio 30
[2021-10-10 15:48] LABS: ABG Base Excess 6.6 mmol/L (-2.0-3.0); ABG HCO3 29.7 mmol/L (20.0-26.0); ABG Methemoglobin 0.7 % (0.0-1.5); ABG PCO2 37.2 mm Hg; ABG PH 7.519 pH Units (7.350-7.450); ABG PO2 69.7 mm Hg (80.0-90.0)
[2021-10-10 16:09] LABS: Basophils % (Auto) 0.5 % (0.0-1.8); Hematocrit 47.4 % (35.5-45.6); Hemoglobin 15.2 gm/dl (11.8-15.2); Lymphocytes # (Auto) 1.8 K/mm3 (1.2-5.4); Lymphocytes % (Auto) 18.4 % (13.4-35.0); Mean Corpuscular HGB Conc 32 % (32-34); Mean Corpuscular Volume 93 fl (84-94); Red Blood Count 5.09 M/mm3 (3.65-5.03); Red Cell Distribution Width 13.7 % (13.2-15.2)
[2021-10-10 17:02] LABS: Mean Platelet Volume 11.7 fl (6-12); Platelet Count 281 K/mm3 (140-440)
[2021-10-10] MEDS: INSULIN GLARGINE 100 UNITS/ML SUB-Q SCH (22:40)
[2021-10-11] MEDS: HEPARIN 5,000 UNIT/1 ML VIAL SUB-Q SCH (05:55)
[2021-10-11] MEDS: INSULIN LISPRO 100 UNIT/ML SUB-Q SCH ×2 (07:30→12:45)
[2021-10-11 07:40] VITALS: BP 106/71
--- NOTE | 2021-10-11 08:12 | Progress Note ---
Assessment and Plan Assessment and plan: 41-year-old man past medical history necrotizing pancreatitis, splenectomy, pancreatectomy now with: COVID-19 with bilateral pneumonia. - CT of the chest reveals patchy groundglass opacities in lung bases likely representing infectious/inflammatory etiology - COVID PCR came back positive Sepsis. Present on admission. Patient meets criteria given the tachycardia, leukocytosis, altered mentation and diagnosis of pneumonia. DKA. Resolved - A1C 16.5 - Anion gap closed, transitioned to SubQ insulin History of necrotizing pancreatitis: Status post hepatectomy and splenectomy. CT with postop changes. Toxic metabolic encephalopathy - CT head/brain w/o con - Neurology follow Leukocytosis. Etiology likely secondary to DKA, possibly secondary to infection. Hypernatremia Acute kidney injury. Etiology secondary to sepsis/ATN. Hospital Course to Date: 2: Patient remains encephalopathic, still on the DKA protocol. Anion gap still open this am, additional IVF bolus administered. Renal function is improving, however worsening hypernatremia also noted, IVF switched to D5W. Plan to transition to SubQ insulin once gap is closed X2. Continue IV Abx for now for CAP, COVID PCR pending. 2/3: Patient is still with AMS and lethargy, remains on RA. Will check a CT head/brain and Neurology consult for Encephalopathy. COVID PCR positive, however no treatment warranted at this time since patient does not required any O2 supplementation. ID is also following, IV Abx discontinued. Patient transitioned to subQ insulin. Concern for possible aspiration, speech swallow eval ordered. Continue D5w in the setting of hypernatremia and no PO intake. 10/09: Patient was transferred to the floor yesterday and is continued on IV fluids. BG better controlled with Lantus 20 units at bedtime. Patient currently not hypoxic so not requiring dexamethasone or remdesivir. Antibiotics were stopped in the setting of normal procalcitonin. Leukocytosis is improved and likely secondary to DKA. Patient still appears to be somewhat altered but no lateralizing signs or symptoms. We will continue to monitor and treat underlying causes 2/5: Patient's leukocytosis has resolved. Patient currently not hypoxic so not requiring dexamethasone or remdesivir. Antibiotics were stopped in the setting of normal procalcitonin. Altered mentation has resolved. Patient appears to be back to baseline. Physical therapy recommended home health PT. BG with adequate control with Lantus 20 units at bedtime. History Interval history: No new issues overnight. Hospitalist Physical - Constitutional Vitals: Temp Pulse Resp BP Pulse Ox 97.8 F 68 20 106/71 98 10/11/21 05:44 10/11/21 05:44 10/11/21 05:44 10/11/21 05:44 10/11/21 05:44 General appearance: Present: no acute distress, cachectic - EENT Eyes: Present: PERRL, EOM intact ENT: hearing intact, clear oral mucosa, dentition normal - Neck Neck: Present: supple, normal ROM - Respiratory Respiratory effort: normal Respiratory: bilateral: CTA - Cardiovascular Rhythm: regular Heart Sounds: Present: S1 & S2. Absent: gallop, rub - Extremities Extremities: no ischemia, No edema, Full ROM - Abdominal General gastrointestinal: soft, non-tender, non-distended, normal bowel sounds - Integumentary Integumentary: Present: clear, warm, dry - Neurologic Neurologic: CNII-XII intact, moves all extremities Results - Labs CBC & Chem 7: 10/10/21 14:37 10/10/21 14:37 Labs: Laboratory Last Values WBC 9.8 K/mm3 (4.5-11.0) 10/10/21 14:37 RBC 5.09 M/mm3 (3.65-5.03) H 10/10/21 14:37 Hgb 15.2 gm/dl (11.8-15.2) 10/10/21 14:37 Hct 47.4 % (35.5-45.6) H 10/10/21 14:37 MCV 93 fl (84-94) 10/10/21 14:37 MCH 30 pg (28-32) 10/10/21 14:37 MCHC 32 % (32-34) 10/10/21 14:37 RDW 13.7 % (13.2-15.2) 10/10/21 14:37 Plt Count 281 K/mm3 (140-440) 10/10/21 14:37 Lymph % (Auto) 18.4 % (13.4-35.0) 10/10/21 14:37 [place]win % (Auto) 7.2 % (0.0-7.3) 10/10/21 14:37 Eos % (Auto) 1.2 % (0.0-4.3) 10/10/21 14:37 Baso % (Auto) 0.5 % (0.0-1.8) 10/10/21 14:37 Lymph # (Auto) 1.8 K/mm3 (1.2-5.4) 10/10/21 14:37 Irwin # (Auto) 0.7 K/mm3 (0.0-0.8) 10/10/21 14:37 Eos # (Auto) 0.1 K/mm3 (0.0-0.4) 10/10/21 14:37 Baso # (Auto) 0.1 K/mm3 (0.0-0.1) 10/10/21 14:37 Add Manual Diff Complete 10/07/21 05:05 Total Counted 100 10/07/21 05:05 Seg Neutrophils % 75.5 % (40.0-70.0) H 10/10/21 14:37 Seg Neuts % (Manual) 80.0 % (40.0-70.0) H 10/07/21 05:05 Band Neutrophils % 9.0 % 10/07/21 05:05 Lymphocytes % (Manual) 3.0 % (13.4-35.0) L 10/07/21 05:05 Reactive Lymphs % (Man) 0 % 10/07/21 05:05 Monocytes % (Manual) 8.0 % (0.0-7.3) H 10/07/21 05:05 Eosinophils % (Manual) 0 % (0.0-4.3) 10/07/21 05:05 Basophils % (Manual) 0 % (0.0-1.8) 10/06/21 18:17 Metamyelocytes % 0 % 10/07/21 05:05 Myelocytes % 0 % 10/07/21 05:05 Promyelocytes % 0 % 10/07/21 05:05 Blast Cells % 0 % 10/07/21 05:05 Nucleated RBC % Not Reportable 10/07/21 05:05 Seg Neutrophils # 7.8 K/mm3 (1.8-7.7) H 10/10/21 14:37 Seg Neutrophils # Man 18.6 K/mm3 (1.8-7.7) H 10/07/21 05:05 Band Neutrophils # 2.1 K/mm3 10/07/21 05:05 Lymphocytes # (Manual) 0.7 K/mm3 (1.2-5.4) L 10/07/21 05:05 Abs React Lymphs (Man) 0.0 K/mm3 10/07/21 05:05 Monocytes # (Manual) 1.9 K/mm3 (0.0-0.8) H 10/07/21 05:05 Eosinophils # (Manual) 0.0 K/mm3 (0.0-0.4) 10/07/21 05:05 Basophils # (Manual) 0.0 K/mm3 (0.0-0.1) 10/07/21 05:05 Metamyelocytes # 0.0 K/mm3 10/07/21 05:05 Myelocytes # 0.0 K/mm3 10/07/21 05:05 Promyelocytes # 0.0 K/mm3 10/07/21 05:05 Blast Cells # 0.0 K/mm3 10/07/21 05:05 WBC Morphology Not Reportable 10/07/21 05:05 Hypersegmented Neuts Not Reportable 10/07/21 05:05 Hyposegmented Neuts Not Reportable 10/07/21 05:05 Hypogranular Neuts Not Reportable 10/07/21 05:05 Smudge Cells Not Reportable 10/07/21 05:05 Toxic Granulation Not Reportable 10/07/21 05:05 Toxic Vacuolation Not Reportable 10/07/21 05:05 Dohle Bodies Not Reportable 10/07/21 05:05 Pelger-Huet Anomaly Not Reportable 10/07/21 05:05 Bib Rods Not Reportable 10/07/21 05:05 Platelet Estimate Consistent w auto 10/07/21 05:05 Clumped Platelets Not Reportable 10/07/21 05:05 Plt Clumps, EDTA Not Reportable 10/07/21 05:05 Large Platelets Not Reportable 10/07/21 05:05 Giant Platelets Not Reportable 10/07/21 05:05 Platelet Satelliting Not Reportable 10/07/21 05:05 Plt Morphology Comment Not Reportable 10/07/21 05:05 RBC Morphology Not Reportable 10/07/21 05:05 Dimorphic RBCs Not Reportable 10/07/21 05:05 Polychromasia Not Reportable 10/07/21 05:05 Hypochromasia Not Reportable 10/07/21 05:05 Poikilocytosis Not Reportable 10/07/21 05:05 Anisocytosis Not Reportable 10/07/21 05:05 Microcytosis Not Reportable 10/07/21 05:05 Macrocytosis 1+ 10/07/21 05:05 Spherocytes Not Reportable 10/07/21 05:05 Pappenheimer Bodies Not Reportable 10/07/21 05:05 Sickle Cells Not Reportable 10/07/21 05:05 Target Cells Not Reportable 10/07/21 05:05 Tear Drop Cells Not Reportable 10/07/21 05:05 Ovalocytes Not Reportable 10/07/21 05:05 Helmet Cells Not Reportable 10/07/21 05:05 [place] Bodies Not Reportable 10/07/21 05:05 [place] Rings Not Reportable 10/07/21 05:05 [place] Cells Not Reportable 10/07/21 05:05 Bite Cells Not Reportable 10/07/21 05:05 Crenated Cell Not Reportable 10/07/21 05:05 Elliptocytes Not Reportable 10/07/21 05:05 Acanthocytes (Spur) Not Reportable 10/07/21 05:05 Rouleaux Not Reportable 10/07/21 05:05 Hemoglobin C Crystals Not Reportable 10/07/21 05:05 Schistocytes Not Reportable 10/07/21 05:05 Malaria parasites Not Reportable 10/07/21 05:05 [place] Bodies Not Reportable 10/07/21 05:05 Hem Pathologist Commnt No 10/07/21 05:05 D-Dimer 831.91 ng/mlDDU (0-234) H 10/07/21 13:52 ABG pH 7.519 pH Units (7.350-7.450) H 10/10/21 15:35 ABG pCO2 37.2 mm Hg 10/10/21 15:35 ABG pO2 69.7 mm Hg (80.0-90.0) L 10/10/21 15:35 ABG HCO3 29.7 mmol/L (20.0-26.0) H 10/10/21 15:35 ABG O2 Saturation 96.0 % (95.0-99.0) 10/10/21 15:35 ABG O2 Content 19.6 (0.0-44) 10/10/21 15:35 ABG Base Excess 6.6 mmol/L (-2.0-3.0) H 10/10/21 15:35 ABG Hemoglobin 14.8 gm/dl (14.0-18.0) 10/10/21 15:35 ABG Carboxyhemoglobin 1.6 % (0.0-5.0) 10/10/21 15:35 ABG Methemoglobin 0.7 % (0.0-1.5) 10/10/21 15:35 VBG pH 7.241 (7.320-7.420) L 10/06/21 21:51 Oxyhemoglobin 93.8 % (95.0-99.0) L 10/10/21 15:35 FiO2 21 % 10/10/21 15:35 Sodium 139 mmol/L (137-145) 10/10/21 14:37 Potassium 4.0 mmol/L (3.6-5.0) 10/10/21 14:37 Chloride 100.9 mmol/L (98-107) 10/10/21 14:37 Carbon Dioxide 26 mmol/L (22-30) 10/10/21 14:37 Anion Gap 16 mmol/L 10/10/21 14:37 BUN 21 mg/dL (9-20) H 10/10/21 14:37 Creatinine 0.7 mg/dL (0.8-1.3) L 10/10/21 14:37 Estimated GFR > 60 ml/min 10/10/21 14:37 BUN/Creatinine Ratio 30 % 10/10/21 14:37 Glucose 292 mg/dL (75-100) H 10/10/21 14:37 POC Glucose 81 mg/dL (70-105) 10/11/21 04:35 Hemoglobin A1c 16.5 % (4-6) H 10/08/21 05:42 Lactic Acid 1.60 mmol/L (0.7-2.0) 10/06/21 23:23 Calcium 9.1 mg/dL (8.4-10.2) D 10/10/21 14:37 Phosphorus 2.20 mg/dL (2.5-4.5) L 10/09/21 05:38 Magnesium 1.70 mg/dL (1.7-2.3) 10/09/21 05:38 Ferritin 1788.0 ng/mL (30.0-300.0) H 10/07/21 13:52 Total Bilirubin 0.40 mg/dL (0.1-1.2) 10/06/21 18:17 AST 10 units/L (5-40) 10/06/21 18:17 ALT 15 units/L (7-56) 10/06/21 18:17 Alkaline Phosphatase 132 units/L (35-129) H 10/06/21 18:17 Lactate Dehydrogenase 221 units/L (91-180) H 10/07/21 13:52 C-Reactive Protein 0.90 mg/dL (0.00-1.30) 10/07/21 13:52 Total Protein 8.9 g/dL (6.3-8.2) H 10/06/21 18:17 Albumin 4.7 g/dL (3.9-5) 10/06/21 18:17 Albumin/Globulin Ratio 1.1 % 10/06/21 18:17 Lipase 76 units/L (13-60) H 10/06/21 18:17 Procalcitonin 0.16 ng/mL (<0.15) 10/07/21 13:52 Urine Color Straw (Yellow) 10/06/21 19:19 Urine Turbidity Clear (Clear) 10/06/21 19:19 Urine pH 5.0 (5.0-7.0) 10/06/21 19:19 Ur Specific [place] 1.025 (1.003-1.030) 10/06/21 19:19 Urine Protein <15 mg/dl mg/dL (Negative) 10/06/21 19:19 Urine Glucose (UA) >=500 mg/dL (Negative) 10/06/21 19:19 Urine Ketones 80 mg/dL (Negative) 10/06/21 19:19 Urine Blood Neg (Negative) 10/06/21 19:19 Urine Nitrite Neg (Negative) 10/06/21 19:19 Urine Bilirubin Neg (Negative) 10/06/21 19:19 Urine Urobilinogen < 2.0 mg/dL (<2.0) 10/06/21 19:19 Ur Leukocyte Esterase Neg (Negative) 10/06/21 19:19 Urine WBC (Auto) 1.0 /HPF (0.0-6.0) 10/06/21 19:19 Urine RBC (Auto) < 1.0 /HPF (0.0-6.0) 10/06/21 19:19 Hyaline Casts 1 /LPF 10/06/21 19:19 Urine Mucus Few /HPF 10/06/21 19:19 Urine Opiates Screen Negative 10/06/21 19:19 Urine Methadone Screen Negative 10/06/21 19:19 Ur Barbiturates Screen Negative 10/06/21 19:19 Ur Phencyclidine Scrn Negative 10/06/21 19:19 Ur Amphetamines Screen Negative 10/06/21 19:19 U Benzodiazepines Scrn Negative 10/06/21 19:19 Urine Cocaine Screen Negative 10/06/21 19:19 U Marijuana (THC) Screen Negative 10/06/21 19:19 Drugs of Abuse Note Disclamer 10/06/21 19:19 Coronavirus (PCR) Positive (Negative) A 10/07/21 09:13 Microbiology: Microbiology 10/06/21 19:44 Peripheral/Venous Blood Culture - Preliminary NO GROWTH AFTER 4 DAYS 10/06/21 19:44 Peripheral/Venous Blood Culture - Preliminary NO GROWTH AFTER 4 DAYS Ocampo/IV: Voiding Method Urinal Active Medications - Current Medications Current Medications: Generic Name Dose Route Start Last Admin Trade Name Freq PRN Reason Stop Dose Admin Acetaminophen 650 mg 10/06/21 22:56 Acetaminophen 325 Mg Tab PO Q6H PRN Pain MILD(1-3)/Fever >100.5/STEINER Aspirin 81 mg 10/09/21 13:00 10/10/21 09:51 Aspirin 81 Mg Tab Chew PO 81 mg QDAY CARMEN Administration Dextrose 0 ml 10/06/21 23:47 Dextrose 10% *Hypoglycemia IV PRN PRN Hypoglycemia Protocol Docusate Sodium 100 mg 10/07/21 10:00 10/10/21 21:26 Docusate Sodium 100 Mg Cap PO Not Given BID CARMEN Famotidine 20 mg 10/07/21 10:00 10/10/21 21:27 Famotidine 20 Mg Tab PO 20 mg BID CARMEN Administration Haloperidol Lactate 5 mg 10/07/21 12:20 Haloperidol Lactate 5 Mg/1 Ml Inj IV Q1H PRN Unrespon. to mult. doses BZD's Heparin Sodium (Porcine) 5,000 unit 10/07/21 14:00 10/11/21 05:55 Heparin 5,000 Unit/1 Ml Vial SUB-Q Not Given Q8HR CARMEN Insulin Glargine 20 units 10/08/21 22:00 10/10/21 22:40 Insulin Glargine 100 Units/Ml SUB-Q 20 units QHS CARMEN Administration Insulin Human Lispro 0 unit 10/08/21 11:30 10/10/21 22:41 Insulin Lispro 100 Unit/Ml SUB-Q 3 unit ACHS CARMEN Administration Protocol Lorazepam 2 mg 10/07/21 12:20 10/07/21 14:56 Lorazepam 2 Mg/Ml Vial IV 2 mg Q1H PRN Administration CIWA-Ar 8-15 Lorazepam 4 mg 10/07/21 12:20 Lorazepam 2 Mg/Ml Vial IV Q1H PRN CIWA-Ar 16-25 Lorazepam 4 mg 10/07/21 12:20 Lorazepam 2 Mg/Ml Vial IV Q15MIN PRN CIWA-Ar >25 Morphine Sulfate 2 mg 10/06/21 22:56 Morphine 2 Mg/1 Ml Inj IV Q4H PRN Pain, Moderate (4-6) Ondansetron HCl 4 mg 10/06/21 22:56 Ondansetron 4 Mg/2 Ml Inj IV Q8H PRN Nausea And Vomiting Senna 8.6 mg 10/07/21 10:00 10/10/21 22:11 Sennosides 8.6 Mg Tab PO Not Given Q12HR CARMEN Sodium Chloride 10 ml 10/07/21 10:00 10/10/21 21:28 Sodium Chloride 0.9% 10 Ml Flush Syringe IV 10 ml BID CARMEN Administration Sodium Chloride 10 ml 10/06/21 22:56 Sodium Chloride 0.9% 10 Ml Flush Syringe IV PRN PRN LINE FLUSH Nutrition/Malnutrition Assess - Dietary Evaluation Nutrition/Malnutrition Findings: Nutrition Notes Start: 10/07/21 15:34 Freq: Status: Active Protocol: Document 10/07/21 15:34 KATIANA (Rec: 10/07/21 15:54 KATIANA [id number]) Nutrition Notes Need for Assessment generated 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 Current Diet NPO (since 10/06 22:57). Labs/Tests 10/07: Na 162, Cl 122.5, BUN 43, Glu 142, Phos 0.6, Mg 2.4. Pertinent Medications 10/07: Insulin, others nutritionally unremarkable. 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 Pt currently on NPO. Pt has missing teeth, according to Physical Assessment History notes. Pt shows no signs of concern for risk of malnutrition at the time, according to Physical Assessment History notes. Pt still on critical conditions, not a candidate for Nutrition Education at the time, will assess feasibility on F/U. Percent of energy/protein needs met: Pt currently on NPO. Burn Absent Trauma Absent GI Symptoms None Difficulty In Chewing Food Allergy No Skin Integrity/Comment Clear, warm, dry. Current % PO Other Minimum of two criteria No Is patient on ventilator? No Is Patient Ambulatory and/or Out of Bed Yes REE-([place]-ambulatory/OOB) [ 2023.269 [id number]] Calculation Used for Recommendations [facility] Additional Notes Protein: 0.8-1 g/Kg; 51-64 g/ day. Fluids: 1 ml/Kcal, or as per MD. Nutrition Intervention Follow-Up By: 10/14/21 Additional Comments Nutrition education will be provided on F/U, if feasible. When pertinent, monitor food tolerance, %PO intake of meals , and BM.
[2021-10-11] MEDS: ASPIRIN 81 MG TAB CHEW PO SCH (12:28)
[2021-10-11] MEDS: DOCUSATE SODIUM 100 MG CAP PO SCH (12:29)
[2021-10-11] MEDS: SENNOSIDES 8.6 MG TAB PO SCH (12:29)
[2021-10-11] MEDS: FAMOTIDINE 20 MG TAB PO SCH (12:29)
== END 2021-10-11 14:01 | disposition home or self-care (01) | DRG 871 ==
LOC: ED 17:31 → CC1 22:56 → 3A 10-08 18:25
PROVIDERS: ADMIT Internal Medicine Geriatric Medicine; ATTEND Hospitalist
DX: A41.9 Sepsis, unspecified organism (principal); E11.10 Type 2 diabetes mellitus with ketoacidosis without coma; U07.1 COVID-19; J12.82 Pneumonia due to coronavirus disease 2019; G92.8 Other toxic encephalopathy; N17.0 Acute kidney failure with tubular necrosis; E87.0 Hyperosmolality and hypernatremia; Z20.822 Contact with and (suspected) exposure to COVID-19; E87.6 Hypokalemia
CPT/HCPCS: 36415; 36600; 70450; 71045; 71250; 74176; 80048; 80053; 80307; 81001; 82140; 82728; 82803; 82805; 82962; 83036; 83615; 83690; 83735; 84100; 84145; 85007; 85025; 85027; 85379; 86140; 87040; 93005; 93010; 94760; 99285; G0378; J3480; J7510; Q0162; Q9967; J0456; J0692; J0696; J1644; J1815; J2060; J2405; J3370; J7030; J7040; J7070; J7120; U0003